=== PATIENT | female | born 1955 | race Caucasian/White ===

== ENCOUNTER 2023-12-03 12:58 | Outpatient (OUT) | payer MEDICARE, SELFPAY | END 2023-12-03 12:59 | disposition home or self-care (01) | LOC: PST 12:59 | PROVIDERS: Family Provider Family Medicine; Visit Provider Surgery | DX: Z01.818 Encounter for other preprocedural examination (principal); Z12.11 Encounter for screening for malignant neoplasm of colon ==

== ENCOUNTER 2023-12-11 07:11 | Day surgery (SDC) | payer MEDICARE, SELFPAY ==
--- OUTSIDE RECORDS SUMMARY | 2023-12-11 07:17 | XMS_ITS | CCD ---
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 Name Role Phone AZ HAYES Unavailable Unavailable NO FAMILY DOCTOR, NO FAMILY DOCTOR Unavailable Unavailable Rumrashida, Kathrine K Unavailable Unavailable Unavailable Unavailable Unavailable Zaina Leigh Unavailable Angela Aldrich Unavailable Unavailable Unavailable NON STAFF Primary Care Provider Unavailabl KWESI Guerra K Attending Provider [phone] Janay DO Kathrine Primary Care Provider MD Zaina Leigh Attending Provider [phone] MD Az Hayes Other Provider [phone] DO Josefa Cox Attending Provider RUMRASHIDA KATHRINE K Primary Care Physician Rumschlag, Kathrine Unavailable Dr. Az Hayes Referring Unavaila ble Freddy, Dr. Bernardo Attending Unavaila ble Dr. Az Hayes Referring Unavaila ble Freddy, Dr. Bernardo Attending Unavaila ble XOCHITLLEANDRA JETER Attending Unavailable RUMSCHLAG, KATHRINE Primary Care Unavailable RUMSCHLAG, KATHRINE Referring Unavailable XOCHITLLEANDRA JETER Attending Unavailable RUMSCHLAG, KATHRINE Primary Care Unavailable LEANDRA TO Attending Unavailable RUMSCHLAG, KATHRINE Primary Care Unavailable XOCHITL, LEANDRA E Attending Unavailable XOCHITL, LEANDRA E Admitting Unavailable RUMSCHLAG, KATHRINE Primary Care Unavailable XOCHITL, LEANDRA E Attending Unavailable XOCHITL, LEANDRA E Admitting Unavailable RUMSCHLAG, KATHRINE Primary Care Unavailable RUMSCHLAG, KATHRINE Primary Care Unavailable XOCHITL, LEANDRA E Attending Unavailable RUMSCHLAG, KATHRINE Primary Care Unavailable RUMSCHLAG, KATHRINE Primary Care Unavailable XOCHITL, LEANDRA E Attending Unavailable FREDDY, DR BERNARDO Attending Unavailab le TRABOULSSI, DR BERNARDO Consulting Unavailab le TRABOULSSI, DR BERNARDO Admitting Unavailab le MISC, DR CARRASQUILLO Primary Care Unavailable RUMSCHLAG, KATHRINE Consulting Unavailable NON STAFF Primary Care Provider Unavailabl e KWESI Diaz Attending Provider Rumschlag, DO Kathrine Primary Care Provider BONY Jiménez Attending Provider MD Zaina Leigh Other Provider MD Zaina Leigh Attending Provider NON STAFF Primary Care Provider UnavailKWESI Jaeger Attending Provider Rumschlag, DO Kathrine Primary Care Provider BONY Jiménez Attending Provider MD Zaina Leigh Other Provider MD Zaina Leigh Attending Provider [phone] [place], DO Nena Paz Attending Provider Rumschlag DO, Kathrine Jayna Primary Care Provider AZ HAYES Attending Unavailable RUMSCHLAG, KATHRINE JAYNA Primary Care Unavailabl e Rumschlag, DO Kathrine Attending Provider Rumschlag, Kathrine Primary Care Unavailable Zaina Leigh Referring Unavailable Nena Wick Admitting Unavailab le Nena Wick Attending Unavailab le Rumschlag, Kathrine Admitting Unavailable Rumschlag, Kathrine Primary Care Unavailable Rumschlag, Kathrine Attending Unavailable Zoila Jiménez S Admitting Unavailable Rumschlag, Kathrine Primary Care Unavailable Tino, Zoila S Attending Unavailable Tino, Zoila S Admitting Unavailable Tino, Zoila S Attending Unavailable Rumschlag, Kathrine Primary Care Unavailable Reese, Zaina Consulting Unavailable Reese, Zaina Referring Unavailable Mapus, Tondra K Admitting Unavailable Mapus, Tondra K Attending Unavailable NON STAFF Primary Care Unavailable Rumschlag, Kathrine Primary Care Unavailable Reese, Zaian Admitting Unavailable Reese, Zaina Attending Unavailable Allergies Allergy Classification Reported Allergen(s) Allergy Type Date of Onset Reaction(s) Facility (10 sources) Angiotensin Converting Enzyme (Mary) Inhibitors; Translations: [MARY Inhibitors] Allergy to drug (finding) 3 Hypotension [facility] 3 Repository (10 sources) Escitalopram; Translations: [Escitalopram Oxalate SOLN] [facility] [place] [address] [facility] Work Phone: (3 sources) venlafaxine; Translations: [venlafaxine] Drug Allergy Fatigue [facility] 250 DO Work Phone: (20 sources) Cephalexin; Translations: [Keflex] Drug Allergy 3 hives, Rash [facility] 250 DO Work Phone: (4 sources) Cephalexin; Translations: [CEPHALEXIN] Drug Allergy 3 [facility] (3 sources) Citalopram; Translations: [citalopram] Drug Allergy 3 [facility] (1 source) Angiotensin-conv erting enzyme inhibitor agent Drug Intolerance 3 Unknown [facility] (1 source) Escitalopram; Translations: [ESCITALOPRAM] Drug Allergy 3 [facility] 3 Repository Medications Current Medications Medication Drug Class(es) Dates Sig (Normalized) Sig (Original) acetaminophen 325 mg oral capsule (20 sources) Start: 08-23-2022 take 1 mg by mouth three times daily Tylenol 325 mg oral capsule mg cap(s), Oral, TID, Refills(s) 0 Start Date: 08/23/22 Status: Ordered take 2 capsules by m outh every twelve hours Acetaminophen 500 MG 2 capsule as needed Orally TWICE A DAY Active take 2 capsules by m outh twice daily as needed Acetaminophen 500 MG 2 capsule as needed Orally TWICE A DAY Active Aimovig (1 source) Aimovig Active Aimovig SureClick (2 sources) Start: 11-15-2022 Aimovig SureClick SubCutaneous, qMonth Start Date: 11/15/22 Status: Ordered Albuterol (20 sources) beta2-Adrenergic Agonist Start: 08-23-2022 albuterol Refills(s) 0 Start Date: 08/23/22 Status: Ordered Start: 06-27-2022 Albuterol Sulf ate HFA 108 (90 Base) MCG/ACT Inhalation Aerosol Solution as directed Quantity: 0 Refills: 0 Ordered: 27-Jun-2022 DO Start : 27-Jun-2022 Active Albuterol Sulfat e (2.5 MG/3ML) 0.083% 1 vial Inhalation 4 times a day as needed DX : J45.909 Active take 2 puff(s) by in halation every four hours as needed Ventolin HFA 108 (90 Base) MCG/ACT 2 puffs as needed Inhalation every 4 hrs Active take 2 puff(s) by in halation every four hours for wheezing albuterol 90 mcg/actuation inhaler Inhale 2 puffs every 4 hours if needed for wheezing. 0 Active Albuterol Sulfat e (2.5 MG/3ML) 0.083% 1 vial Inhalation 4 times a day as needed DX : J45.909 Active albuterol CFC free 90 mcg/inh inhalation aerosol (4 sources) Start: 08-23-2022 albuterol CFC free 90 mcg/inh inhalation aerosol Refills(s) 0 Start Date: 08/23/22 Status: Ordered aspirin 325 mg oral tablet (20 sources) Platelet Aggregation Inhibitor, Nonsteroidal Anti-inflammatory Drug take 1 tablet by mouth every twenty-four hours Aspirin 325 MG 1 tablet Orally Once a day Active take 1 tablet by edilma th every twenty-four hours Aspirin 325 MG 1 tablet Orally Once a day Active take 1 tablet by mouth once moustapha y Aspirin 81 MG Oral Tablet Delayed Release TAKE 1 TABLET DAILY. Quantity: 90 Refills: 3 Ordered: 19-Mar-2023 DO Active atorvastatin 80 mg oral tablet (20 sources) HMG-CoA Reductase Inhibitor Start: 08-23-2022 atorvastatin 80 mg Tab Refills(s) 0 Start Date: 08/23/22 Status: Ordered Breo Ellipta 200-25 MCG/INH (11 sources) Start: 06-24-2017 take 1 puff(s) by inhalation once daily Breo Ellipta 200-25 MCG/INH 1 puff Inhalation Once a day Jun, Active carvedilol 3.125 mg oral tablet (20 sources) alpha-Adrenergic Marilyn, beta-Adrenergic Marilyn Start: 08-23-2022 carvedilol 3.125 mg Tab Refills(s) 0 Start Date: 08/23/22 Status: Ordered take 1 tablet by mouth twice svetlana ly Carvedilol 3.125 MG 1 Tablet Orally twice daily Active take 1 tablet by mouth once moustapha y Carvedilol 3.125 MG Oral Tablet Take 1 tablet daily Quantity: 0 Refills: 0 Ordered: 17-Aug-2021 DO Active clopidogrel 75 mg oral tablet (20 sources) P2Y12 Platelet Inhibitor Start: 08-23-2022 clopidogrel 75 mg Tab Refills(s) 0 Start Date: 08/23/22 Status: Ordered diphenhydrAMINE hydrochloride 12.5 mg chewable tablet (4 sources) Histamine-1 Receptor Antagonist Start: 08-23-2022 take 1 mg by mouth every six hours diphenhydrAMINE 12.5 mg oral tablet, chewable mg tab(s), Chewed, q6hr, Refills(s) 0 Start Date: 08/23/22 Status: Ordered doxycycline hyclate 100 mg oral capsule (12 sources) Tetracycline-cla ss Drug Start: 09-10-2023 take 1 capsule by mouth every twelve hours Doxycycline Hyclate 100 MG 1 capsule Orally Twice a day for 5 days Sep, Active Start: 09-10-2023 take 1 tablet by edilma th every twelve hours Doxycycline Hyclate 100 MG 1 tablet Orally Twice a day for 5 days Sep, Active take 1 tablet by edilma th twice daily 1 hour(s) before breakfast Doxycycline Hyclate 100 MG 1 tablet 1 hour before breakfast and 1 hour before the evening meal Orally Twice a day for 5 days Active empagliflozin 10 mg oral tablet (20 sources) Sodium-Glucose Cotransporter 2 Inhibitor Start: 01-01-2023 take 1 tablet by mouth every twenty-four hours Jardiance 10 MG 1 tablet Orally Once a day for 90 days E11.29 28 Dec, 2022 Active Start: 09-18-2022 take 0.5 tablet by m outh once daily Jardiance 25 MG 1/2 tablet Orally Once a day for 30 day(s) PAP 15 Sep, 2022 Active Start: 08-23-2022 Jardiance 25 m g oral tablet Refills(s) 0 Start Date: 08/23/22 Status: Ordered 1 ml erenumab-aooe 140 mg/ml auto-injector (6 sources) inject 140 mg by subcutaneous injection every month Aimovig 140 MG/ML as directed Subcutaneous every month Active ERENUMAB-AOOE SUBQ (1 source) inject 140 mg by subcutaneous injection every 30 days ERENUMAB-AOOE SUBQ Inject 140 mg under the skin every 30 (thirty) days. 0 Active Ergocalciferol (20 sources) Provitamin D2 Compound take 1 capsule by mouth once daily Ergocalciferol 50 MCG (2000 UT) 1 capsule Orally Once a day for 56 days Active take 1 capsule by mouth every we ek Ergocalciferol 50 MCG (2000 UT) 1 capsule Orally 2x weekly Active take 1 capsule by mouth every we ek Ergocalciferol 50 MCG (2000 UT) 1 capsule Orally 2x weekly for 56 days Active Fish Oils (20 sources) Start: 08-23-2022 take 1 mg by mouth o nce daily EPA Fish Oil 1000 mg oral capsule mg cap(s), Oral, Daily, Refills(s) 0 Start Date: 08/23/22 Status: Ordered take 1 capsule by mouth once svetlana ly Fish Oil 1000 MG 1 capsule Orally Once a day Active take 2 capsules by mouth once da [place] Fish Oil 1000 MG 2 capsules Orally Once a day Active take 2 capsules by mouth twice d aily Fish Oil 1000 MG 2 capsules Orally Twice a day Active 30 actuat fluticasone furoate 0.1 mg/actuat / umeclidinium 0.0625 mg/actuat / vilanterol 0.025 mg/actuat dry powder inhaler (4 sources) Anticholinergic, Corticosteroid, beta2-Adrenergic Agonist take 1 puff(s) by inhalation once daily Trelegy Ellipta 100-62.5-25 MCG/ACT 1 puff Inhalation Once a day Active fluticasone / vilanterol (20 sources) Corticosteroid, beta2-Adrenergic Agonist Start: Breo Ellipta Inhalation, Daily, Refill(s) 0 Start Date: 08/23/22 Status: Ordered Start: 06-24-2017 take 1 puff(s) by in halation once daily Breo Ellipta 200-25 MCG/INH 1 puff Inhalation Once a day Jun, Active Freestyle Anali 14 day sensor (2 sources) Start: 11-18-2023 Freestyle Libr e 14 day sensor 1 sensor in vitro every 14 days for 84 days Nov, Active FreeStyle Anali 14 Day Sensor - (20 sources) Start: 04-29-2019 FreeStyle Libr e 14 Day Sensor - as directed SQ change every 14 days for 90 day(s) Apr, Active FreeStyle Anali Franklin (20 sources) Start: 03-05-2018 FreeStyle Libr e [place] 14 day reader Daily E11.59 March, Active 1.5 ml fremanezumab-vfrm 150 mg/ml prefilled syringe (4 sources) Ajovy 225 MG/1.5 ML 1.5 mL Subcutaneous Active furosemide 20 mg oral tablet (20 sources) Loop Diuretic Start: 08-23-2022 furosemide 20 mg Tab Refills(s) 0 Start Date: 08/23/22 Status: Ordered take 1 tablet by edilma th every twenty-four hours Lasix 40 MG 1 tablet Orally Once a day Not-Taking take 1 tablet by edilma th once daily as needed Furosemide 20 MG Oral Tablet Take one tablet daily. May take an extra tablet as needed for swelling Quantity: 0 Refills: 0 Ordered: 17-Aug-2021 DO Active 1 ml galcanezumab-gnlm 120 mg/ml prefilled syringe (8 sources) inject 1 mL by subcutaneous injection every month Emgality 120 MG/ML 1 mL Subcutaneous ONCE A MONTH Active Mucinex (20 sources) Start: 08-23-2022 take 1 mg by mouth every twelve hours Mucinex mg, Oral, q12hr, Refills(s) 0 Start Date: 08/23/22 Status: Ordered take 1 tablet by edilma th every twelve hours Mucinex 600 MG 1 tablet as needed Orally every 12 hrs Active take 1 tablet by mouth every fou r hours guaiFENesin (Mucus Relief) 400 mg tablet Take 1 tablet (400 mg) by mouth every 4 hours. 0 Active Lantus (20 sources) Insulin Analog Start: 08-23-2022 Lantus SubCuta neous, Daily, Refills(s) 0 Start Date: 08/23/22 Status: Ordered inject 24 [IU] by dennis bcutaneous injection once at breakfast, then inject 20 [IU] by subcutaneous injection at bedtime Lantus SoloStar 100 UNIT/ML 24 units at breakfast and 20 units at bedtime SQ as directed for 90 days PAP Expect up to 60u/ day Active inject 1 [IU] by sub cutaneous injection once daily in the morning insulin glargine (Lantus U-100 Insulin) 100 unit/mL injection Inject 1 Units under the skin once daily in the morning. 0 Active inject 28 [IU] by dennis bcutaneous injection once at breakfast, then inject 18 [IU] by subcutaneous injection at bedtime Lantus SoloStar 100 UNIT/ML 28 units at breakfast and 18 units at bedtime SQ as directed for 90 days Expect up to 60u/ day Active inject 30 [IU] by dennis bcutaneous injection once at breakfast, then inject 20 [IU] by subcutaneous injection at bedtime Lantus SoloStar 100 UNIT/ML 30 units at breakfast and 20 units at bedtime SQ as directed for 90 days Expect up to 60u/ day Active Apidra (20 sources) Insulin Analog Start: 08-23-2022 Apidra SubCuta neous, 0 Start Date: 08/23/22 Status: Ordered Apidra SoloStar 100 UNIT/ML as directed SQ as directed ISS 1-30, ICR 1-5 Active inject 1 [IU] by sub cutaneous injection three times daily at mealtime insulin glulisine (Apidra U-100 Insulin) 100 unit/mL injection Inject 1 Units under the skin 3 times a day with meals. 0 Active Apidra 100 UNIT/ ML Injection Solution INJECT SUBCUTANEOUSLY DIRECTED. Quantity: 0 Refills: 0 Ordered: 14-Feb-2022 DO Active Apidra SoloStar 100 UNIT/ML 08-18- ac according to meals size tid plus ISS 1:20 ac, hs (expect up to 80/day) SQ as directed Active Insulin Syringe 1/3mL 30 units BD Micro-Fine insulin syringes (20 sources) Start: 03-20-2017 inject 1 dose by subcutaneous injection three times daily Insulin Syringe 1/3mL 30 units BD Micro-Fine insulin syringes USE WITH VIAL INSULIN SQ TID March, Active linagliptin 5 mg oral tablet (20 sources) Dipeptidyl Peptidase 4 Inhibitor take 1 tablet by mouth every twenty-four hours Tradjenta 5 mg 1 tablet Orally Once a day for 90 days PAP Active Midodrine (20 sources) alpha-Adrenergic Agonist Start: 08-23-2022 midodrine Oral, TID, Refills(s) 0 Start Date: 08/23/22 Status: Ordered Start: 02-14-2022 take 1 tablet by edilma th three times daily midodrine (Proamatine) 5 mg tablet Take 1 tablet (5 mg) by mouth 3 times a day. 0 02/14/2022 Active Midodrine HCl 2. 5 MG Oral As Directed Active Nitro 0.4 mg Tab (2 sources) Start: 08-23-2022 Nitro 0.4 mg T ab = 1 tab(s), SubLingual, q5min, PRN Chest pain, # 25 tab(s), Refills(s) 3 Start Date: 08/23/22 Status: Ordered nitroglycerin 0.4 mg/actuat mucosal spray (20 sources) Nitrate Vasodilator Start: 08-23-2022 Nitro 0.4 mg Tab = 1 tab(s), SubLingual, q5min, PRN Chest pain, # 25 tab(s), Refills(s) 3 Start Date: 08/23/22 Status: Ordered Nitroglycerin 0. 4 MG as directed Sublingual Active nitroglycerin (N itrostat) 0.[address] 1 tablet (0.4 mg) under the tongue every 5 minutes if needed for chest pain. 0 Active omeprazole 20 mg delayed release oral capsule (20 sources) Proton Pump Inhibitor Start: 03-20-2022 take 1 capsule by mouth once daily omeprazole (PriLOSEC) [address] capsule Take 1 capsule (20 mg) by mouth once daily. 0 03/20/2022 Active Start: 03-20-2022 Omeprazole 20 MG Oral Capsule Delayed Release Quantity: 30 Refills: 0 Ordered: 20-Mar-2022 DO Start : 20-Mar-2022 Complete take 2 capsules by sandeep church once daily Omeprazole 20 MG 2 capsule 30 minutes before morning meal Orally Once a day Active oxygen (O2) gas therapy (1 source) oxygen (O2) gas therapy Inhale 1 each continuously. 0 Active Oxygen 2 liters (20 sources) Oxygen 2 liters continuous as directed Active POT CHLORIDE 10MEQ ER TAB (4 sources) Start: 08-23-2022 POT CHLORIDE 10MEQ ER TAB POT CHLORIDE 10MEQ ER TAB Start Date: 08/23/22 Status: Ordered rimegepant 75 mg disintegrating oral tablet (10 sources) Nurtec 75 MG 1 t ablet on the tongue and allow to dissolve Orally Active 60 actuat tiotropium 0.97293 mg/actuat inhalation spray (20 sources) Anticholinergic Start: 08-23-2022 Spiriva Respimat 1.25 mcg/inh inhalation aerosol puff(s), Inhalation, Daily, Refill(s) 0 Start Date: 08/23/22 Status: Ordered Start: 09-28-2019 take 1.25 ug by inha lation once daily Spiriva Respimat 1.25 MCG/ACT 2 puffs Inhalation Once a day Sep, Active topiramate 100 mg oral table t (20 sources) Start: 08-23-2022 topiramate 100 mg Tab Refills(s) 0 Start Date: 08/23/22 Status: Ordered take 1 tablet by edilma th every twenty-four hours Topamax 25 MG 1 tablet Orally Once a day Not-Taking/PRN take 1 tablet by mouth three lamar es daily Topiramate 50 MG Oral Tablet TAKE 1 TABLET 3 times daily Quantity: 0 Refills: 0 Ordered: 17-Aug-2021 DO Active Vitamin B 12 500 MCG (6 sources) take 1 tablet by edilma th once daily Vitamin B 12 500 MCG 1 tablet Orally Once a day Active vitamin b12 0.5 mg oral tablet (19 sources) Vitamin B12 take 1 tablet by edilma th every twenty-four hours Vitamin B 12 500 MCG 1 tablet Orally Once a day Active take 1 tablet by edilma th every twenty-four hours Vitamin B-12 50 MCG 1 tablet Orally Once a day Active Vitamin D (4 sources) Start: 08-23-2022 Vitamin D Inte rnational_Unit, Oral, qWeek, Refills(s) 0 Start Date: 08/23/22 Status: Ordered Completed/Discontinued Medications Medication Drug Class(es) Dates Sig (Normalized) Sig (Original) Aimovig SOAJ (2 sources) Aimovig SOAJ as directed Quantity: 0 Refills: 0 Ordered: 24-Sep-2022 DO Active cephalexin 500 mg oral capsule (11 sources) Cephalosporin Antibacterial Start: 08-23-2022 Cephalexin 500 MG Oral Capsule Quantity: 14 Refills: 0 Ordered: 23-Aug-2022 DO Start : 23-Aug-2022 Complete Start: 08-23-2022 End: 08-30-2022 take 1 capsule by mouth twice daily Keflex 500 mg Cap 500 mg = 1 cap(s), Oral, BID, X 7 day(s), # 14 cap(s), Refills(s) 0, Pharmacy: [facility] [id number], 160, cm, 08/23/22 10:01:00 EDT, Height/Length Dosing, 80, kg, 08/23/22 10:01:00 EDT, Weight Dosing Start Date: 08/23/22 Stop Date: 08/30/22 Status: Ordered Cyanocobalamin 100 MCG/ML SOLN (2 sources) Cyanocobalamin 1 00 MCG/ML SOLN ONE INJECTION EVERY WEEK FOR 4 WEEKS THEN 4 MONTHS FOR NEXT INJECTION. Quantity: 0 Refills: 0 Ordered: 19-Mar-2023 DO Active digoxin 0.125 mg oral tablet (20 sources) Cardiac Glycoside Start: 04-30-20 23 take 1 tablet by mouth once daily Digoxin 125 MCG Oral Tablet TAKE ONE TABLET BY MOUTH DAILY Quantity: 90 Refills: 3 Ordered: 01-May-2023 Lois Vilchis Start : 30-Apr-2023 Active Start: 08-23-2022 take 1 tablet by edilma th once daily digoxin 125 mcg (0.125 mg) Tab mcg tab(s), Oral, Daily, Refills(s) 0 Start Date: 08/23/22 Status: Ordered Disability Placard (4 sources) Start: 09-24-2022 Disability [place] card Handicap Placard renewal for next 5 years to on 10/03/2027 Quantity: 1 Refills: 0 Ordered: 24-Sep-2022 Az Hayes MD Start : 24-Sep-2022 Active famotidine 40 mg oral tablet (20 sources) Histamine-2 Receptor Antagonist End: 10-07-2023 take 1 tablet by mouth twice daily famotidine (Pepcid) 40 mg tablet Take 1 tablet (40 mg) by mouth twice a day. 0 10/07/2023 Discontinued (Therapy completed) take 0.5 tablet by mouth twice d aily Famotidine 40 MG Oral Tablet TAKE 0.5 TABLET Twice daily Quantity: 0 Refills: 0 Ordered: 17-Aug-2021 DO Active take 1 tablet by mouth twice svetlana ly Famotidine 20 mg 1 TABLET Orally twice daily Not-Taking hydrOXYzine pamoate 50 mg oral capsule (5 sources) Antihistamine Start: 08-11-2021 take 1 capsule by mouth three times daily as needed hydrOXYzine Pamoate 50 MG Oral Capsule TAKE 1 CAPSULE 3 TIMES DAILY NEEDED. Quantity: 0 Refills: 0 Ordered: 11-Aug-2021 DO Start : 11-Aug-2021 Active meclizine hydrochloride 25 mg oral tablet (20 sources) Antiemetic Meclizine HCl 25 mg 1 tablet as needed Oral As Directed Not-Taking/PRN Mucus Relief 400 MG Oral Tablet (9 sources) take 1 tablet by mouth every four hours as needed Mucus Relief 400 MG Oral Tablet TAKE 1 TABLET EVERY 4 HOURS NEEDED. Quantity: 0 Refills: 0 Ordered: 17-Aug-2021 DO Active Oxygen (4 sources) Oxygen Quantity: 0 Refills: 0 Ordered: 24-Sep-2022 DO Active potassium chloride 10 meq extended release oral tablet (20 sources) take 1 tablet by mouth every twenty-four hours Potassium Chloride ER 10 MEQ 1 tablet with food Orally Once a day Not-Taking 12 hr ranolazine 500 mg extended release oral tablet (20 sources) Anti-anginal Start: 10-10-2021 End: 10-07-2023 take 1 tablet by mouth twice daily ranolazine (Ranexa) 500 mg 12 hr tablet Indications: Chest pain, unspecified type TAKE ONE TABLET BY MOUTH TWICE A DAY 180 tablet 3 10/02/2023 10/07/2023 Discontinued (Cost of medication) take 1 tablet by edilma th every twelve hours Ranolazine ER 500 MG Oral Tablet Extende d Release 12 Hour TAKE 1 TABLET EVERY 12 HOURS. Quantity: 0 Refills: 0 Ordered: 17-Aug-2021 DO Active 24 hr venlafaxine 75 mg extended release oral capsule (2 sources) Serotonin and Norepinephrine Reuptake Inhibitor take 1 capsule by mouth once daily at mealtime Venlafaxine HCl ER 75 MG Oral Capsule Extended Release 24 Hour TAKE 1 CAPSULE ONCE DAILY WITH FOOD. Quantity: 0 Refills: 0 Ordered: 14-Feb-2022 DO Active Problems Active Problems Problem Classification Problem Date Documented Date Episodic/Chronic Abdominal pain (6 sources) Abdominal pain; Translations: [Unspecified abdominal pain] Onset: 2 Episodic Administrative/socia l admission (20 sources) Patient encounter status; Translations: [Dietary counseling and surveillance] Onset: 2 Resolved: 2 Episodic Anxiety disorders (4 sources) Mixed anxiety and depressive disorder 08-16-2022 Chronic Asthma (20 sources) Mild intermittent asthma; Translations: [Mild intermittent asthma, uncomplicated] Chronic Cardiac dysrhythmias (2 sources) Unspecified atrial fibrillation; Translations: [Unspecified atrial fibrillation] Onset: 3 Chronic Chronic kidney disease (20 sources) Chronic kidney disease stage 3; Translations: [Chronic kidney disease, stage 3 (moderate)] Chronic Chronic kidney disease (14 sources) Chronic kidney disease; Translations: [Chronic kidney disease, stage III (moderate) N18.30] Onset: 1 Resolved: 1 Complications of surgical procedures or medical care (10 sources) Atrial fibrillation; Translations: [Cardiac complications, not elsewhere classified] Onset: 3 10-07-2023 Episodic Conditions associated with dizziness or vertigo (4 sources) Meniere's disease 08-16-2022 Chronic Conditions associated with dizziness or vertigo (1 source) Dizziness and giddiness; Translations: [Dizziness and giddiness] Onset: 3 Episodic Congestive heart failure; nonhypertensive (4 sources) Congestive heart failure 08-16-2022 Chronic Coronary atherosclerosis and other heart disease (20 sources) Atherosclerotic heart disease of [place] coronary artery without angina pectoris; Translations: [Multi vessel coronary artery disease] Onset: 7 08-16-2022 Chronic Diabetes mellitus with complications (20 sources) Diabetes mellitus; Translations: [Diabetes mellitus without mention of complication, type II or unspecified type, not stated as uncontrolled] Onset: 3 08-16-2022 Chronic Diabetes mellitus with complications (20 sources) Disorder of kidney due to diabetes mellitus; Translations: [Type 2 diabetes mellitus with diabetic chronic kidney disease] Onset: 1 Resolved: 2 Chronic Diabetes mellitus without complication (1 source) Diabetes mellitus without complication; Translations: [Type 2 diabetes mellitus with diabetic chronic kidney disease] Onset: 3 Disorders of lipid metabolism (20 sources) Hyperlipidemia; Translations: [Other and unspecified hyperlipidemia] Onset: 2 Resolved: 2 Chronic Esophageal disorders (20 sources) Gastroesophageal reflux disease; Translations: [Gastro-esophageal reflux disease without esophagitis] Chronic Essential hypertension (20 sources) Benign essential hypertension; Translations: [Benign essential hypertension] Onset: 2 Resolved: 2 Chronic Genitourinary symptoms and ill-defined conditions (18 sources) Microscopic hematuria; Translations: [Other microscopic hematuria] Onset: 2 Episodic Headache; including migraine (5 sources) Migraine; Translations: [Migraine, unspecified, not intractable, without status migrainosus] Onset: 3 08-16-2022 Chronic Hypertension with complications and secondary hypertension (20 sources) Chronic kidney disease due to hypertension; Translations: [Hypertensive chronic kidney disease with stage 1 through stage 4 chronic kidney disease, or unspecified chronic kidney disease] Onset: 1 Resolved: 1 Chronic Mood disorders (20 sources) Depressive disorder; Translations: [Major depressive disorder, single episode, unspecified] Onset: 2 Resolved: 2 Chronic Nonspecific chest pain (11 sources) Chest pain; Translations: [Chest pain, unspecified] Onset: 3 10-07-2023 Episodic Nutritional deficiencies (20 sources) Vitamin D deficiency; Translations: [Vitamin D deficiency, unspecified] Onset: 1 Resolved: 2 Chronic Other aftercare (20 sources) Long-term current use of insulin; 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] Episodic Other aftercare (9 sources) [facility] (current) use of insulin Onset: 2 Resolved: 2 Episodic Other and unspecified benign neoplasm (2 sources) Neoplasm of meninges; 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] Chronic Other circulatory disease (12 sources) Orthostatic hypotension; Translations: [Orthostatic hypotension] Onset: 3 10-07-2023 Episodic Other circulatory disease (2 sources) Other hypotension; Translations: [Other hypotension] Onset: 3 Episodic Other circulatory disease (1 source) Orthostatic hypotension; Translations: [Orthostatic hypotension] Onset: 3 Episodic Other connective tissue disease (4 sources) Fibromyalgia 08-16-2022 Episodic Other diseases of kidney and ureters (20 sources) Secondary hyperparathyroidism; Translations: [Secondary hyperparathyroidism of renal origin] Chronic Other diseases of kidney and ureters (1 source) Secondary hyperparathyroidism of renal origin; Translations: [Secondary hyperparathyroidism N25.81] Onset: 1 Resolved: 1 Chronic Other ear and sense organ disorders (20 sources) Tinnitus; Translations: [Tinnitus, right ear] Episodic Other lower respiratory disease (11 sources) Dyspnea on exertion; Translations: [Shortness of breath] Onset: 3 10-07-2023 Episodic Other lower respiratory disease (2 sources) Shortness of breath; Translations: [Shortness of breath] Onset: 3 Episodic Other nervous system disorders (20 sources) Chronic pain syndrome; Translations: [Chronic pain syndrome] Chronic Other nutritional; endocrine; and metabolic disorders (20 sources) Body mass index 30+ - obesity; Translations: [Obesity, unspecified] Chronic Other nutritional; endocrine; and metabolic disorders (6 sources) Obesity; Translations: [Obesity, unspecified] Chronic Other nutritional; endocrine; and metabolic disorders (20 sources) Obese class I; Translations: [Body mass index (BMI) 33.0-33.9, adult] Chronic Other nutritional; endocrine; and metabolic disorders (2 sources) Body mass index (BMI) 33.0-33.9, adult; Translations: [BMI 33.0-33.9,adult] Onset: 2 Resolved: 2 Chronic Other nutritional; endocrine; and metabolic disorders (2 sources) Body mass index (BMI) 32.0-32.9, adult; Translations: [BMI 32.0-32.9,adult] Onset: 2 Resolved: 2 Chronic Other nutritional; endocrine; and metabolic disorders (3 sources) Body mass index (BMI) 31.0-31.9, adult Onset: 2 Resolved: 2 Chronic Other nutritional; endocrine; and metabolic disorders (4 sources) Body mass index (BMI) 30.0-30.9, adult Chronic Other upper respiratory disease (20 sources) Allergic rhinitis; Translations: [Allergic rhinitis, unspecified] Chronic Residual codes; unclassified (9 sources) Other specified health status; Translations: [MARY inhibitor intolerance] Episodic Unclassified (2 sources) 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) Onset: 7 Unclassified (1 source) Ischemic cardiomyopathy / I25.5(ICD-9) Onset: 7 Unclassified (1 source) Encounter for screening mammogram for malignant neoplasm of breast; Translations: [Encounter for screening mammogram for malignant neoplasm of breast] Onset: 3 Urinary tract infections (8 sources) Recurrent urinary tract infection; Translations: [Urinary tract infectious disease] Onset: 3 08-23-2022 Episodic Past or Other Problems Problem Classification Problem Date Documented Da te Episodic/Chronic Mood disorders (1 source) Mood disorders Onset: 03-19-2023 04-29-2023 Other nervous system disorders (2 sources) Other symptoms and signs involving cognitive functions and awareness Onset: 11-08-2021 Resolved: 02-21-2022 Episodic Unclassified (9 sources) Never smoked tobacco; Translations: [Never a smoker] Unclassified (1 source) Onset: 10-07-2023 10-07-2023 Results Test Name Value Interpretation Reference Range Facility A1C HEMOGLOBINon 11-13-2023 HbA1c (Bld) [Mass fraction] 8.4 % 79 Group Other Glucose - FINGER STICKon Glucose [Mass/Vol] 254 mg/dL 79 Group Other HbA1c (Bld) [Mass fraction]o n 11-13-2023 A1C HEMOGLOBIN SERPs Other MM screening mammo BI w/CADo n 10-22-2023 MM screening mammo BI w/CAD [facility] Main [place] [address] [place] [address] Mammography Report Signed Patient: Elizabeth Manrique MR#: [id number] 38 : 1955 Acct:[id number] Age/Sex: 68 / F ADM Date: 10/21/23 Loc: [place] Room: Type: [facility] Attending Dr: Kathrine Gustafson DO Copies to: Kathrine Gustafson DO Ordering Provider: Kathrine Gustafson DO Date of Service: 10/21/23 MM/MM screening mammo BI w/CAD: SCREENING CLINICAL DATA: Screening for malignancy. BILATERAL SCREENING MAMMOGRAMS - FULL FIELD DIGITAL WITH TOMOSYNTHESIS AND CAD Tomosynthesis craniocaudal and mediolateral oblique views of both breasts were obtained using low- dose digital technique. Comparison is made to prior studies from 09/12/2020. This examination was reviewed with the aid of CAD. There are scattered fibroglandular densities. Benign-appearing calcifications are present bilaterally. A biopsy clip is present on the left similar to the prior exam. Benign-appearing lymph nodes are noted along the chest wall. There are no dominant masses, typically malignant calcifications or architectural distortion. There has been no significant interval change. MM/MM screening mammo BI w/CAD IMPRESSION: NO MAMMOGRAPHIC EVIDENCE OF MALIGNANCY. ROUTINE FOLLOW-UP IS RECOMMENDED IN ONE YEAR. RESULT CODE: 2 Benign Findings(s) DENSITY CODE: 2 (approximately 25-50% glandular) FOLLOW UP: 1YR The false-negative rate of mammography is approximately 10-percent. Management of a palpable abnormality must be based on clinical grounds. Patient was entered into a reminder system with a target due date for the next mammogram. Impression dictated by: Orlando Melton M.D.10/22/2023 7:50 AM Dictation Location: [facility] Transcribed By: [facility] 10/22/23 0750 Dictated By: Orlando Melton II, MD 10/22/23 0749 Signed By: 10/22/23 0750 Normal [facility] CT angio neckon 09-17-2023 CT angio neck [facility] [place] [address] CT Scan Report Signed with Addenda Patient: Elizabeth Manrique MR#: [id number] 38 : 1955 Acct:[id number] Age/Sex: 68 / F ADM Date: 09/16/23 Loc: CT Room: Type: [facility] Attending Dr: Nena Wick DO Copies to: Nena Wick DO Ordering Provider: Nena Wick DO Date of Service: 09/16/23 CT/CT angio neck: R42, R93.89 ([id number]) CT/CT angio head: R42 M93.89 ADDENDUM 1 The previously described 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 Impression dictated by: Vicenta Reyna Jr.ORayshawn09/19/2023 1:31 PM Dictation Location: [place] [address] Addendum Dictated By: Cliff Mercedes Jr, DO Addendum Signed By: 09/19/231330 Addendum Cosigned By: DD/ TD/TT: 09/19/23 CT angio head, CT angio neck 09/16/2023 2:30 PM SIGNS AND SYMPTOMS: Migraines with dizziness. TECHNIQUE: Multi-detector CT angiography axial slices of the head and neck were obtained before and during intravenous administration of IV contrast material. Sagittal, coronal, and 3-D recon structions were performed and viewed on a separate workstation. CT was performed with one or more of the following dose reduction techniques: Automated exposure control, adjustment of the mA and/or kV according to patient size, or use of iterative reconstruction technique. Stenoses were measured using the NASCET criteria. COMPARISON: CT brain 02/11/2017 FINDINGS: Noncontrast head CT: There is no shift of the midline structures, acute intracranial bleeding, mass effects, or evidence of acute ischemia. Chronic microvascular ischemic changes are noted.The brainstem and the cerebellum are unremarkable. The visualized intraorbital contents and visualized paranasal sinuses demonstrate no acute findings. The osseous structures in the skull base and the calvarium show no acute abnormality. 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 origin left posterior cerebral artery. Intracranial segments of the internal carotid arteries: Minimal calcification without critical stenosis or occlusion. MCA: patent OBDULIA: patent Anterior Communicating artery: patent Posterior Communicating arteries: Right posterior communicating artery is patent. CTA NECK: Vertebral arteries : Patent. Normal origins. Common Carotid arteries: Normal. Internal Carotid arteries: Normal. No gross central airway mass. Right sphenoid sinus disease. No soft tissue swelling. No lymphadenopathy. Thyroid nodules, largest measuring 8 mm involving the right lobe. Visualized lung apices demonstrate no acute findings. Osseous structures demonstrate cervical spondylosis. CT/CT angio head IMPRESSION: No acute intracranial pathology. 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 Impression dictated by: Cliff Mercedes Jr., DRayshawnORayshawn09/17/2023 10:37 AM Dictation Location: [place] [address] Transcribed By: [facility] 09/17/23 1037 Dictated By: Cliff Mercedes Jr DO 09/17/23 1027 Signed By: 09/17/23 1037 [facility] CT CHEST W IV CONTRASTon CT CHEST W IV CONTRAST EXAM: CT CHEST W IV CONTRAST History: swelling Technique: Multiple contiguous axial images were obtained of the thorax from the thoracic inlet through the upper abdomen with IV contrast. Multiplanar reformats were obtained. All CT scans at this facility use dose modulation, iterative reconstruction, and/or weight based dosing when appropriate to reduce radiation dose to as low as reasonably achievable. Comparison: Chest radiographs June 06, 2023 Findings: Visualized portion of the thyroid gland is within normal limits. No axillary, mediastinal, or hilar lymphadenopathy. No thoracic aortic aneurysm. Postsurgical changes of CABG. Coronary artery calcifications are identified. Heart size is mildly enlarged. No significant pericardial effusion. Esophagus is within normal limits. 4 mm spiculated nodule versus motion artifact as seen on axial series 2 image 14. No consolidation, pleural effusion, or pneumothorax. No acute osseous abnormality. 1 cm sclerotic focus within lateral left rib 7 is nonspecific. Mild degenerative changes of the spine. No soft tissue mass. Visualized upper abdomen demonstrates no acute abnormality. IMPRESSION: No acute intrathoracic process. Possible 4 mm spiculated nodule of the right upper lobe. Follow-up recommended per Fleischner criteria. Cardiomegaly. Solitary 1 cm sclerotic focus within lateral left rib 7 is nonspecific and likely a bone island unless the patient has a history of malignancy. ELECTRONICALLY SIGNED BY: Donavan Hastings DO Normal Not Available CT UPPER EXTREMITY LEFT W IV CONTRASTon 09-04-2023 CT UPPER EXTREMITY LEFT W IV CONTRAST EXAMINATION: CT UPPER EXTREMITY LEFT W IV CONTRAST HISTORY: palpable mass TECHNIQUE: Multiple axial images were obtained of the left upper extremity with contrast. Multiplanar reformats were obtained. All CT scans at this facility use dose modulation, iterative reconstruction, and/or weight based dosing when appropriate to reduce radiation dose to as low as reasonably achievable. COMPARISON: Ultrasound June 06, 2023 FINDINGS: No soft tissue mass or fluid collection. Humerus is within normal limits. A sclerotic focus within a lateral left rib measures approximately 10 mm and is most likely a bone island unless the patient has a history of malignancy. The visualized left lung demonstrates no overt abnormality. IMPRESSION: No soft tissue mass or fluid collection. A sclerotic focus within a lateral left rib measures approximately 10 mm and is most likely a bone island unless the patient has a history of malignancy. ELECTRONICALLY SIGNED BY: Donavan Hastings DO Normal Not Available Magnesiumon 09-03-2023 Magnesium [Mass/Vol] 1.8 mg/dL Low 1.9-2.7 [facility] Comment on above: Performed By: #### R ENAL, URIC, MG, [id number] #### [facility] [address] No Panel InformationOrdered By: Zaina Leigh on 09-03-2023 Pharmacy Creatinine Clearance (Chem N/A [facility] Renal Function Panelon 09-03 Albumin [Mass/Vol] 3.8 g/dL Normal 3.5-5.7 [facility] Comment on above: Performed By: #### R ENAL, URIC, MG, [id number] #### [facility] [address] Anion gap [Moles/Vol] 15.9 mmol/L High 6.0-15.0 [facility] Comment on above: Performed By: #### R ENAL, URIC, MG, [id number] #### [address] Calcium [Mass/Vol] 9.0 mg/dL Normal 8.6-10.3 [facility] Comment on above: Performed By: #### R ENAL, URIC, MG, [id number] #### [address] Chloride [Moles/Vol] 107 mmol/L Normal 98-107 [facility] Comment on above: Performed By: #### R ENAL, URIC, MG, [id number] #### [address] CO2 [Moles/Vol] 26.0 mmol/L Normal 21.0-31.0 [facility] Comment on above: Performed By: #### R ENAL, URIC, MG, [id number] #### [address] Creatinine [Mass/Vol] 1.12 mg/dL Normal 0.60-1.20 [facility] Comment on above: Performed By: #### R ENAL, URIC, MG, [id number] #### [address] GFR/1.73 sq M.predicted MDRD (S/P/Bld) [Vol rate/Area] 54.233 mL/min/{1.73_m2} Normal [facility] Comment on above: Performed By: #### R ENAL, URIC, MG, [id number] #### [address] Glucose [Mass/Vol] 229 mg/dL High 70-100 [facility] Comment on above: Result Comment: [place] Glucose Reference Range is dependent on time and content of last meal. Glucose of more than 200 mg/dL in a nonstressed, ambulatory subject supports the diagnosis of Diabetes Mellitus. ADA recommended reference range Performed By: #### R ENAL, URIC, MG, [id number] #### [facility] [address] Phosphate [Mass/Vol] 3.6 mg/dL Low 3.7-7.2 [facility] Comment on above: Performed By: #### R ENAL, URIC, MG, [id number] #### [facility] [address] Potassium [Moles/Vol] 3.9 mmol/L Normal 3.5-5.1 [facility] Comment on above: Performed By: #### R ENAL, URIC, MG, [id number] #### [facility] [address] [place] [address] Sodium [Moles/Vol] 145 mmol/L Normal 136-145 [facility] Comment on above: Performed By: #### R ENAL, URIC, MG, [id number] #### [facility] [address] [place] [address] Urea nitrogen [Mass/Vol] 13 mg/dL Normal 7-25 [facility] Comment on above: Performed By: #### R ENAL, URIC, MG, [id number] #### [address] Uric Acidon 09-03-2023 Urate [Mass/Vol] 4.1 mg/dL Normal 2.3-6.6 [facility] Comment on above: Performed By: #### R ENAL, URIC, MG, [id number] #### [address] Vitamin D 25 Hydroxy Totalon 09-03-2023 Vitamin D 25 Hydroxy Total 17.4 ng/mL Low 30-100 [facility] Comment on above: Result Comment: ALBIN MIN D STATUS 25(OH)VITAMIN D RANGE (ng/mL) Deficient <20 Insufficient 20 to <30 Sufficient 30 to 100 Reference: David CHEW,Nubia HERNANDES, Thom MARTINEZ, et al. Evaluation,treatment, and prevention of vitamin D deficiency; an Endocrine Society clinical practice guideline. JCEM. 2010; 96(7):1911-30. PERFORMED BY: [facility] [address] [place] [address] PATHOLOGIST DRYWALL TAPER HELPER ALEXA BETANCOURT M.D. Performed By: #### R ENAL, URIC, MG, [id number] #### [facility] [address] Albumin [Mass/volume] in Ser um or PlasmaOrdered By: Zaina Finer on 09-02-2023 Albumin [Mass/Vol] 3.3 g/dL 2.9-4.4 [facility] Albumin [Mass/volume] in Ser um or Plasma by Bromocresol green (BCG) dye binding methoOrdered By: Zaina Reese on 09-02-2023 Albumin BCG dye [Mass/Vol] 3.8 g/dL 3.5-5.7 [facility] Albumin/Protein.total in 24 hour Urine by ElectrophoresisOrdered By: Zaina Leigh on 09-02-2023 Albumin Elph (24H U) [Mass fraction] 66.8 % . [facility] Automated erythrocytes count in urine sediment (number/area)Ordered By: Zaina Reese on 09-02-2023 RBC Auto (Urine sed) [#/Area] 1-2 [HPF] 0-4 [facility] Automated leukocytes count i n urine sediment (number/area)Ordered By: Zaina Reese on 09-02-2023 WBC Auto (Urine sed) [#/Area] Innumerable [HPF] 0-4 [facility] Bilirubin Test strip Ql (U)O rdered By: Zaina Reese on 09-02-2023 Bilirubin Ql (U) Negative Negative [facility] Calcium [Mass/volume] in Ser um or PlasmaOrdered By: Zaina Reese on 09-02-2023 Calcium [Mass/Vol] 9.0 mg/dL 8.6-10.3 [facility] Carbon dioxide, total [Moles /volume] in Serum or PlasmaOrdered By: Zaina Reese on 09-02-2023 CO2 [Moles/Vol] 26.0 mmol/L 21.0-31.0 [facility] Chloride [Moles/volume] in S jazzy or PlasmaOrdered By: Zaina Reese on 09-02-2023 Chloride [Moles/Vol] 107 mmol/L 98-107 [facility] Color Auto (U)Ordered By: Ab desai Reese on 09-02-2023 Color (U) Yellow Yellow [facility] Creatinine [Mass/volume] in Serum or PlasmaOrdered By: Zaina Reese on 09-02-2023 Creatinine [Mass/Vol] 1.12 mg/dL 0.60-1.20 [facility] Creatinine [Mass/volume] in UrineOrdered By: Zaina Reese on 09-02-2023 Creatinine (U) [Mass/Vol] 40.0 mg/dL 11.0-20.0 [facility] Dipstick and Microscopicon 1 Appearance (U) Cloudy Critically abnormal Clear [facility] Comment on above: Order Comment: Reaso n for Exam Chronic kidney disease, stage III (moderate);Quinn hy kid w cr Performed By: #### R ENAL, URIC, MG, [id number] #### [facility] [address] [place] [address] Bacteria,Urine 4+ High None Seen [facility] Comment on above: Order Comment: Reaso n for Exam Chronic kidney disease, stage III (moderate);Quinn hy kid w cr Performed By: #### R ENAL, URIC, MG, [id number] #### [facility] [address] [place] [address] [place] Bilirubin,Urine Negative Normal Negative [facility] Comment on above: Order Comment: Reaso n for Exam Chronic kidney disease, stage III (moderate);Quinn hy kid w cr Performed By: #### R ENAL, URIC, MG, [id number] #### [facility] [address] [place] [address] [place] Color (U) Yellow Normal Yellow [facility] Comment on above: Order Comment: Reaso n for Exam Chronic kidney disease, stage III (moderate);Quinn hy kid w cr Performed By: #### R ENAL, URIC, MG, [id number] #### [facility] [address] Glucose Ql (U) >=1000 High Normal [facility] Comment on above: Order Comment: Reaso n for Exam Chronic kidney disease, stage III (moderate);Quinn hy kid w cr Performed By: #### R ENAL, URIC, MG, [id number] #### [facility] [address] Hyaline Casts,Urine None Seen Normal 0-8 [facility] Comment on above: Order Comment: Reaso n for Exam Chronic kidney disease, stage III (moderate);Quinn hy kid w cr Result Comment: PERF ORMED BY: [place] [address] PATHOLOGIST DRYWALL TAPER HELPER ALEXA BETANCOURT M.D. Performed By: #### R ENAL, URIC, MG, [id number] #### [facility] [address] [place] [address] Ketones Ql (U) Negative Normal Negative [facility] Comment on above: Order Comment: Reaso n for Exam Chronic kidney disease, stage III (moderate);Quinn hy kid w cr Performed By: #### R ENAL, URIC, MG, [id number] #### [facility] [address] Leukocyte esterase Test strip Ql (U) 3+ High Negative [facility] Comment on above: Order Comment: Reaso n for Exam Chronic kidney disease, stage III (moderate);Quinn hy kid w cr Performed By: #### R ENAL, URIC, MG, [id number] #### [facility] [address] [place] [address] Nitrite,Urine Negative Normal Negative [facility] Comment on above: Order Comment: Reaso n for Exam Chronic kidney disease, stage III (moderate);Quinn hy kid w cr Performed By: #### R ENAL, URIC, MG, [id number] #### [facility] [address] [place] [address] Occult Blood,Urine Trace High Negative [facility] Comment on above: Order Comment: Reaso n for Exam Chronic kidney disease, stage III (moderate);Quinn hy kid w cr Performed By: #### R ENAL, URIC, MG, [id number] #### [facility] [address] pH (U) 5.5 [pH] Normal 5.0-9.0 [facility] Comment on above: Order Comment: Reaso n for Exam Chronic kidney disease, stage III (moderate);Quinn hy kid w cr Performed By: #### R ENAL, URIC, MG, [id number] #### [facility] [address] [place] [address] Protein (U) [Mass/Vol] 100 mg/dL High Negative [facility] Comment on above: Order Comment: Reaso n for Exam Chronic kidney disease, stage III (moderate);Quinn hy kid w cr Performed By: #### R ENAL, URIC, MG, [id number] #### [facility] [address] [place] [address] RBC,Urine 1-2 Normal 0-4 [facility] Comment on above: Order Comment: Reaso n for Exam Chronic kidney disease, stage III (moderate);Quinn hy kid w cr Performed By: #### R ENAL, URIC, MG, [id number] #### [facility] [address] [place] [address] Specificy [place],Urine 1.020 Normal 1.001-1.030 [facility] Comment on above: Order Comment: Reaso n for Exam Chronic kidney disease, stage III (moderate);Quinn hy kid w cr Performed By: #### R ENAL, URIC, MG, [id number] #### [facility] [address] [place], [place] [id number] [facility] Squamous Epithelial Cell,Urine 1-2 Normal 0-2 [facility] Comment on above: Order Comment: Reaso n for Exam Chronic kidney disease, stage III (moderate);Quinn hy kid w cr Performed By: #### R ENAL, URIC, MG, [id number] #### [facility] [address] [place], [place] [id number] [facility] Urobilinogen,Urine Normal Normal Normal [facility] Comment on above: Order Comment: Reaso n for Exam Chronic kidney disease, stage III (moderate);Quinn hy kid w cr Performed By: #### R ENAL, URIC, MG, [id number] #### [facility] [address] [place] [address] WBC,Urine Innumerable High 0-4 [facility] Comment on above: Order Comment: Reaso n for Exam Chronic kidney disease, stage III (moderate);Quinn hy kid w cr Performed By: #### R ENAL, URIC, MG, [id number] #### [facility] [address] [place] [address] Erythrocyte distribution wid th Auto (RBC) [Ratio]Ordered By: Zaina Leigh on 09-02-2023 Erythrocyte distribution width (RBC) [Ratio] 14.3 % 11.9-15.3 [facility] Free K+L LT Chains, Qn, Son 09-02-2023 Free [place] Light Chains, S 35.2 mg/L High 3.3-19.4 [facility] Comment on above: Order Comment: Reaso n for Exam Chronic kidney disease, stage III (moderate);Quinn hy kid w cr Performed By: #### R ENAL, URIC, MG, [id number] #### [facility] [address] [place] [address] Free Lambda Light Chains, S 28.3 mg/L High 5.7-26.3 [facility] Comment on above: Order Comment: Reaso n for Exam Chronic kidney disease, stage III (moderate);Quinn hy kid w cr Performed By: #### R ENAL, URIC, MG, [id number] #### [facility] [address] [place] [address] [place]/Lambda Ratio, S 1.24 Normal 0.26-1.65 [facility] Comment on above: Order Comment: Reaso n for Exam Chronic kidney disease, stage III (moderate);Quinn hy kid w cr Result Comment: Perf ormed at: - [facility] [address] [id number] Manager Front Office: Varun Gustafson PhD, Phone: [phone] PERFORMED BY: [address] [place] [address] PATHOLOGIST [employer]YWALL TAPER HELPER ALEXA BETANCOURT M.D. Performed By: #### R ENAL, URIC, MG, [id number] #### [address] Gamma globulin/Protein.total in 24 hour Urine by ElectrophoresisOrdered By: Zaina Leigh on 09-02-2023 Gamma globulin Elph (24H U) [Mass fraction] 6.7 % . [facility] Glucose [Mass/volume] in Ser um or PlasmaOrdered By: Zaina Leigh on 09-02-2023 Glucose [Mass/Vol] 229 mg/dL 70-100 [facility] Comment on above: ADA recommended refe rence rangeRandom Glucose Reference Range is dependent on time and content of last meal. Glucose of more than 200 mg/dL in a nonstressed, ambulatory subject supports the diagnosis of Diabetes Mellitus. Hematocrit Auto (Bld) [Volum e fraction]Ordered By: Zaina Leigh on 09-02-2023 Hematocrit (Bld) [Volume fraction] 36.4 % 34.0-46.4 [facility] Hemoglobin [Mass/volume] in BloodOrdered By: Zaina Leigh on 09-02-2023 Hemoglobin (Bld) [Mass/Vol] 12.0 g/dL 11.8-15.4 [facility] Hemogram CBC Without Diffon 09-02-2023 Erythrocyte distribution width (RBC) [Ratio] 14.3 % Normal 11.9-15.3 [facility] Comment on above: Order Comment: Reaso n for Exam Chronic kidney disease, stage III (moderate);Diabetes mellit Performed By: #### C BCNO #### [facility] [address] [place] [address] Hematocrit (Bld) [Volume fraction] 36.4 % Normal 34.0-46.4 [facility] Comment on above: Order Comment: Reaso n for Exam Chronic kidney disease, stage III (moderate);Diabetes mellit Performed By: #### C BCNO #### [facility] [address] [place] [address] [place] Hemoglobin (Bld) [Mass/Vol] 12.0 g/dL Normal 11.8-15.4 [facility] Comment on above: Order Comment: Reaso n for Exam Chronic kidney disease, stage III (moderate);Diabetes mellit Performed By: #### C BCNO #### [facility] [address] MCH (RBC) [Entitic mass] 30.6 pg Normal 24.7-34.3 [facility] Comment on above: Order Comment: Reaso n for Exam Chronic kidney disease, stage III (moderate);Diabetes mellit Performed By: #### C BCNO #### [facility] [address] MCV (RBC) [Entitic vol] 92.6 fL Normal 80-100 [facility] Comment on above: Order Comment: Reaso n for Exam Chronic kidney disease, stage III (moderate);Diabetes mellit Performed By: #### C BCNO #### [facility] [address] [place] [address] Mean Corpuscular HGB Conc 33.0 g/dL Normal 32.0-35.0 [facility] Comment on above: Order Comment: Reaso n for Exam Chronic kidney disease, stage III (moderate);Diabetes mellit Performed By: #### C BCNO #### [address] Platelet mean volume (Bld) [Entitic vol] 8.4 fL Normal 6.3-10.7 [facility] Comment on above: Order Comment: Reaso n for Exam Chronic kidney disease, stage III (moderate);Diabetes mellit Result Comment: PERF ORMED BY: [place] [address] PATHOLOGIST [employer] HELPER ALEXA BETANCOURT M.D. Performed By: #### C BCNO #### [address] Platelets (Bld) [#/Vol] 189 10*3/uL Normal 150-450 [facility] Comment on above: Order Comment: Reaso n for Exam Chronic kidney disease, stage III (moderate);Diabetes mellit Performed By: #### C BCNO #### [facility] [address] RBC (Bld) [#/Vol] 3.93 10*6/uL Normal 3.60-5.00 [facility] Comment on above: Order Comment: Reaso n for Exam Chronic kidney disease, stage III (moderate);Diabetes mellit Performed By: #### C BCNO #### [facility] [address] [place] [id number] [facility] WBC (Bld) [#/Vol] 9.3 10*3/uL Normal 3.8-11.6 [facility] Comment on above: Order Comment: Reaso n for Exam Chronic kidney disease, stage III (moderate);Diabetes mellit Performed By: #### C BCNO #### [facility] [address] [place] [id number] [facility] IgA [Mass/volume] in Serum o r PlasmaOrdered By: Zaina Reese on 09-02-2023 IgA [Mass/Vol] 300 mg/dL 87-352 [facility] IgG [Mass/volume] in Serum o r PlasmaOrdered By: Zaina Reese on 09-02-2023 IgG [Mass/Vol] 725 mg/dL [phone] [facility] IgM [Mass/volume] in Serum o r PlasmaOrdered By: Zaina Reese on 09-02-2023 IgM [Mass/Vol] 65 mg/dL 26-217 [facility] Immunofixation for UrineOrde red By: Zaina Finer on 09-02-2023 Interpretation Immunofixation (U) [Interp] See comment . [facility] Comment on above: No monoclonality det ected.Performed at: - [facility] [address] [id number] Director: Varun Gustafson PhD, Phone: [phone] Immunofixation, (MAIDA), Urine on 09-02-2023 Immunofixation, (MAIDA), Urine Normal . [facility] Comment on above: Order Comment: Reaso n for Exam Chronic kidney disease, stage III (moderate);Quinn hy kid w cr Result Comment: No m onoclonality detected. Performed at: - [facility] [address] [id number] Manager Front Office: Varun Gustafson PhD, Phone: [phone] Performed By: #### R ENAL, URIC, MG, [id number] #### [facility] [address] [place] [address] [place] Immunofixation,Serumon 09-02 Immunofixation, Serum Normal . [facility] Comment on above: Order Comment: Reaso n for Exam Chronic kidney disease, stage III (moderate);Quinn hy kid w cr Result Comment: No m onoclonality detected. Performed By: #### R ENAL, URIC, MG, [id number] #### [place] [address] [place] Immunoglobulin A, Serum 300 mg/dL Normal 87-352 [facility] Comment on above: Order Comment: Reaso n for Exam Chronic kidney disease, stage III (moderate);Quinn hy kid w cr Performed By: #### R ENAL, URIC, MG, [id number] #### [facility] [address] [place] [id number] [place] Immunoglobulin G 725 mg/dL Normal [phone] [facility] Comment on above: Order Comment: Reaso n for Exam Chronic kidney disease, stage III (moderate);Quinn hy kid w cr Performed By: #### R ENAL, URIC, MG, [id number] #### [facility] [address] [place] [id number] [place] Immunoglobulin M, Serum 65 mg/dL Normal 26-217 [facility] Comment on above: Order Comment: Reaso n for Exam Chronic kidney disease, stage III (moderate);Quinn hy kid w cr Performed By: #### R ENAL, URIC, MG, [id number] #### [facility] [address] [place] [address] [place] Immunoglobulin light chains. kappa.free [Mass/volume] in SerumOrdered By: Zaina Leigh on 09-02-2023 Immunoglobulin light chains.kappa.free (S) [Mass/Vol] 35.2 mg/L 3.3-19.4 [facility] Immunoglobulin light chains. kappa.free/Immunoglobulin light chains.lambda.free [MassOrdered By: Zaina Leigh on 09-02-2023 Immunoglobulin light chains.kappa.free/Immuno globulin light chains.lambda.free (S) [Mass ratio] 1.24 0.26-1.65 [facility] Comment on above: Performed at: [address] [id number] Director: Varun Gustafson PhD, Phone: [phone] Immunoglobulin light chains. lambda.free [Mass/volume] in Serum or PlasmaOrdered By: Zaina Leigh on 09-02-2023 Immunoglobulin light chains.lambda.free [Mass/Vol] 28.3 mg/L 5.7-26.3 [facility] Ketones Auto test strip (U) [Mass/Vol]Ordered By: Zaina Leigh on 09-02-2023 Ketones (U) [Mass/Vol] Negative Negative [facility] - UrinalysisOrder ed By: Zaina Leigh on 09-02-2023 Hyaline casts LM Ql (Urine sed) None seen [LPF] 0-8 [facility] Leukocytes [#/volume] correc feng for nucleated erythrocytes in Blood by Automated counOrdered By: Zaina Leigh on 09-02-2023 WBC corrected for nucl RBC Auto (Bld) [#/Vol] 9.3 10*3/uL 3.8-11.6 [facility] MCH Auto (RBC) [Entitic mass ]Ordered By: Zaina Leigh on 09-02-2023 MCH (RBC) [Entitic mass] 30.6 pg 24.7-34.3 [facility] MCHC Auto (RBC) [Mass/Vol]Or dered By: Zaina Leigh on 09-02-2023 MCHC (RBC) [Mass/Vol] 33.0 g/dL 32.0-35.0 [facility] MCV Auto (RBC) [Entitic vol] Ordered By: Zaina Leigh on 09-02-2023 MCV (RBC) [Entitic vol] 92.6 fL 80-100 [facility] Magnesiumon 09-02-2023 Magnesium [Mass/Vol] 1.8 mg/dL Low 1.9-2.7 [facility] Comment on above: Performed By: #### R ENAL, URIC, MG, [id number] #### [facility] [address] Magnesium [Mass/volume] in S jazzy or PlasmaOrdered By: Zaina Leigh on 09-02-2023 Magnesium [Mass/Vol] 1.8 mg/dL 1.9-2.7 [facility] Nitrite Test strip Ql (U)Ord ered By: Zaina Leigh on 09-02-2023 Nitrite Ql (U) Negative Negative [facility] No Panel InformationOrdered By: Zaina Leigh on 09-02-2023 Estimated GFR (CKD-EPI) 54.233 mL/Min [facility] Protein Electrophoresis M-Bobo Comment: g/dL Not Observed [facility] Comment on above: SPE shows an asymmet rical beta. Protein Electrophoresis Note See comment . [facility] Comment on above: Protein electrophore sis scan will follow via computer,mail, or production grip delivery. Serum Immunofixation See comment . [facility] Comment on above: No monoclonality det ected. Urine Random Prot Electrophor Note See comment . [facility] Comment on above: Protein electrophore sis scan will follow via computer,mail, or production grip delivery. Protein electrophoresis scan will follow via computer,mail, or production grip delivery.Performed at: [address] [id number] Director: Varun Gustafson PhD, Phone: [phone] --- 09/04/23 5421 ---Please Note: previously reported as: Protein electrophoresis scan will follow via computer,mail, or production grip delivery. Parathyrin.intact [Mass/volu me] in Serum or PlasmaOrdered By: Zaina Leigh on 09-02-2023 Parathyrin.intact [Mass/Vol] 62.5 pg/mL [facility] Parathyroid Hormone Intacton 09-02-2023 Parathyroid Hormone Intact 62.5 pg/mL Normal [facility] Comment on above: Order Comment: Reaso n for Exam Chronic kidney disease, stage III (moderate);Quinn cheng cr Result Comment: PERF ORMED BY: [place] [address] PATHOLOGIST DR[employer] HELPER ALEXA BETANCOURT M.D. Performed By: #### R ENAL, URIC, MG, [id number] #### [facility] [address] [place] [address] Phosphate [Mass/volume] in S jazzy or PlasmaOrdered By: Zaina Reese on 09-02-2023 Phosphate [Mass/Vol] 3.6 mg/dL 3.7-7.2 [facility] Platelet mean volume Auto (B ld) [Entitic vol]Ordered By: Zaina Reese on 09-02-2023 Platelet mean volume (Bld) [Entitic vol] 8.4 fL 6.3-10.7 [facility] Platelets Auto (Bld) [#/Vol] Ordered By: Zaina Reese on 09-02-2023 Platelets (Bld) [#/Vol] 189 10*3/uL 150-450 [facility] Potassium [Moles/volume] in Serum or PlasmaOrdered By: Zaina Reese on 09-02-2023 Potassium [Moles/Vol] 3.9 mmol/L 3.5-5.1 [facility] Protein Auto test strip (U) [Mass/Vol]Ordered By: Zaina Reese on 09-02-2023 Protein (U) [Mass/Vol] 100 mg/dL Negative Fi [facility] Protein Creat Ratio Ur Rando mon 09-02-2023 Creatinine, Urine (Random) 40.0 mg/dL High 11.0-20.0 [facility] Comment on above: Order Comment: Reaso n for Exam Chronic kidney disease, stage III (moderate);Quinn philip w cr Performed By: #### R ENAL, URIC, MG, [id number] #### [facility] [address] [place] [address] Protein (U) [Mass/Vol] 76 mg/dL High 0-9 [facility] Comment on above: Order Comment: Reaso n for Exam Chronic kidney disease, stage III (moderate);Quinn hy kid w cr Performed By: #### R ENAL, URIC, MG, [id number] #### [facility] [address] [place] [id number] [facility] Urine Protein/Creatinine Ratio 1900 mg/g{Cre} High 0-200 [facility] Comment on above: Order Comment: Reaso n for Exam Chronic kidney disease, stage III (moderate);Quinn hy kid w cr Result Comment: PERF ORMED BY: [facility] [address] [place] [address] PATHOLOGIST DRYWALL TAPER HELPER ALEXA BETANCOURT M.D. Performed By: #### R ENAL, URIC, MG, [id number] #### [facility] [address] Protein Electro, Random Urin michael 09-02-2023 Albumin, Urine 66.8 % Normal . [facility] Comment on above: Order Comment: Reaso n for Exam Chronic kidney disease, stage III (moderate);Quinn hy kid w cr Performed By: #### R ENAL, URIC, MG, [id number] #### [facility] [address] [place] [address] [place] Kkgyb-5-Udpxqyfe, Urine 4.4 % Normal . [facility] Comment on above: Order Comment: Reaso n for Exam Chronic kidney disease, stage III (moderate);Quinn hy kid w cr Performed By: #### R ENAL, URIC, MG, [id number] #### [facility] [address] [place] [id number] [place] Icmyj-3-Gxgmekhz, Urine 3.6 % Normal . [facility] Comment on above: Order Comment: Reaso n for Exam Chronic kidney disease, stage III (moderate);Quinn hy kid w cr Performed By: #### R ENAL, URIC, MG, [id number] #### [facility] [address] [place] [phone] [place] Beta Globulin, Urine 18.6 % Normal . [facility] Comment on above: Order Comment: Reaso n for Exam Chronic kidney disease, stage III (moderate);Quinn hy kid w cr Performed By: #### R ENAL, URIC, MG, [id number] #### [facility] [address] [place] [address] Gamma Globulin, Urine 6.7 % Normal . [facility] Comment on above: Order Comment: Reaso n for Exam Chronic kidney disease, stage III (moderate);Quinn hy kid w cr Performed By: #### R ENAL, URIC, MG, [id number] #### [facility] [address] [place] [address] M-Bobo % Not Observed Normal Not Observed [facility] Comment on above: Order Comment: Reaso n for Exam Chronic kidney disease, stage III (moderate);Quinn hy kid w cr Performed By: #### R ENAL, URIC, MG, [id number] #### [facility] [address] [place] [address] Please Note: Normal . [facility] Comment on above: Order Comment: Reaso n for Exam Chronic kidney disease, stage III (moderate);Quinn hy kid w cr Result Comment: Prot ein electrophoresis scan will follow via computer, mail, or production grip delivery. Protein electrophoresis scan will follow via computer, mail, or production grip delivery. Performed at: [place] [id number] Manager Front Office: Varun Gustafson PhD, Phone: [phone] --- 09/04/23 [facility] --- Please Note: previously reported as: Protein electrophoresis scan will follow via computer, mail, or production grip delivery. PERFORMED BY: [place] [address] PATHOLOGIST DRYWALL T[employer]ER HELPER ALEXA BETANCOURT M.D. Performed By: #### R ENAL, URIC, MG, [id number] #### [facility] [address] [place] [address] Protein (U) [Mass/Vol] 82.8 mg/dL Normal Not Estab. [facility] Comment on above: Order Comment: Reaso n for Exam Chronic kidney disease, stage III (moderate);Quinn hy kid w cr Performed By: #### R ENAL, URIC, MG, [id number] #### [facility] [address] Protein Electrophoresis, Ser umon 09-02-2023 Albumin [Mass/Vol] 3.3 g/dL Normal 2.9-4.4 [facility] Comment on above: Order Comment: Reaso n for Exam Chronic kidney disease, stage III (moderate);Quinn hy kid w cr Performed By: #### R ENAL, URIC, MG, [id number] #### [facility] [address] [place] [address] Albumin/Globulin [Mass ratio] 1.1 {ratio} Normal 0.7-1.7 [facility] Comment on above: Order Comment: Reaso n for Exam Chronic kidney disease, stage III (moderate);Quinn hy kid w cr Performed By: #### R ENAL, URIC, MG, [id number] #### [facility] [address] [place] [address] Ognyg-2-Nwsgnixi 0.3 g/dL Normal 0.0-0.4 [facility] Comment on above: Order Comment: Reaso n for Exam Chronic kidney disease, stage III (moderate);Quinn hy kid w cr Performed By: #### R ENAL, URIC, MG, [id number] #### [facility] [address] [place] [address] Wzbtk-4-Rmnyfmqp 1.1 g/dL High 0.4-1.0 [facility] Comment on above: Order Comment: Reaso n for Exam Chronic kidney disease, stage III (moderate);Quinn hy kid w cr Performed By: #### R ENAL, URIC, MG, [id number] #### [facility] [address] [place] [address] Beta Globulin 1.0 g/dL Normal 0.7-1.3 [facility] Comment on above: Order Comment: Reaso n for Exam Chronic kidney disease, stage III (moderate);Quinn hy kid w cr Performed By: #### R ENAL, URIC, MG, [id number] #### [facility] [address] Gamma Globulin 0.7 g/dL Normal 0.4-1.8 [facility] Comment on above: Order Comment: Reaso n for Exam Chronic kidney disease, stage III (moderate);Quinn hy kid w cr Performed By: #### R ENAL, URIC, MG, [id number] #### [facility] [address] Globulin (S) [Mass/Vol] 3.0 g/dL Normal 2.2-3.9 [facility] Comment on above: Order Comment: Reaso n for Exam Chronic kidney disease, stage III (moderate);Quinn hy kid w cr Performed By: #### R ENAL, URIC, MG, [id number] #### [address] M-Bobo Comment: Normal Not Observed [facility] Comment on above: Order Comment: Reaso n for Exam Chronic kidney disease, stage III (moderate);Quinn hy kid w cr Result Comment: SPE shows an asymmetrical beta. Performed By: #### R ENAL, URIC, MG, [id number] #### [address] Protein [Mass/Vol] 6.3 g/dL Normal 6.0-8.5 [facility] Comment on above: Order Comment: Reaso n for Exam Chronic kidney disease, stage III (moderate);Quinn hy kid w cr Performed By: #### R ENAL, URIC, MG, [id number] #### [address] SPE-Note Normal . [facility] Comment on above: Order Comment: Reaso n for Exam Chronic kidney disease, stage III (moderate);Quinn hy kid w cr Result Comment: Prot ein electrophoresis scan will follow via computer, mail, or production grip delivery. Performed By: #### R ENAL, URIC, MG, [id number] #### [place] [id number] [place] Protein [Mass/volume] in Ser um or PlasmaOrdered By: Zaina Leigh on 09-02-2023 Protein [Mass/Vol] 6.3 g/dL 6.0-8.5 [facility] Protein [Mass/volume] in Uri neOrdered By: Zaina Leigh on 09-02-2023 Protein (U) [Mass/Vol] 76 mg/dL 0-9 [facility] Protein (U) [Mass/Vol] 82.8 mg/dL Not Estab. [facility] Protein.monoclonal/Protein.t otal in 24 hour Urine by ElectrophoresisOrdered By: Zaina Leigh on 09-02-2023 Protein.monoclonal Elph (24H U) [Mass fraction] Not observed % Not Observed [facility] RBC Auto (Bld) [#/Vol]Ordere d By: Zaina Leigh on 09-02-2023 RBC (Bld) [#/Vol] 3.93 10*6/uL 3.60-5.00 [facility] Renal Function Panelon 09-02 Albumin [Mass/Vol] 3.8 g/dL Normal 3.5-5.7 [facility] Comment on above: Performed By: #### R ENAL, URIC, MG, [id number] #### [facility] [address] Anion gap [Moles/Vol] 15.9 mmol/L High 6.0-15.0 [facility] Comment on above: Performed By: #### R ENAL, URIC, MG, [id number] #### [facility] [address] Calcium [Mass/Vol] 9.0 mg/dL Normal 8.6-10.3 [facility] Comment on above: Performed By: #### R ENAL, URIC, MG, [id number] #### [facility] [address] Chloride [Moles/Vol] 107 mmol/L Normal 98-107 [facility] Comment on above: Performed By: #### R ENAL, URIC, MG, [id number] #### [facility] [address] CO2 [Moles/Vol] 26.0 mmol/L Normal 21.0-31.0 [facility] Comment on above: Performed By: #### R ENAL, URIC, MG, [id number] #### [facility] [address] Creatinine [Mass/Vol] 1.12 mg/dL Normal 0.60-1.20 [facility] Comment on above: Performed By: #### R ENAL, URIC, MG, [id number] #### [facility] [address] [place] [address] [place] GFR/1.73 sq M.predicted MDRD (S/P/Bld) [Vol rate/Area] 54.233 mL/min/{1.73_m2} Normal [facility] Comment on above: Performed By: #### R ENAL, URIC, MG, [id number] #### [address] Glucose [Mass/Vol] 229 mg/dL High 70-100 [facility] Comment on above: Result Comment: [facility] Glucose Reference Range is dependent on time and content of last meal. Glucose of more than 200 mg/dL in a nonstressed, ambulatory subject supports the diagnosis of Diabetes Mellitus. ADA recommended reference range Performed By: #### R ENAL, URIC, MG, [id number] #### [address] Phosphate [Mass/Vol] 3.6 mg/dL Low 3.7-7.2 [facility] Comment on above: Performed By: #### R ENAL, URIC, MG, [id number] #### [address] Potassium [Moles/Vol] 3.9 mmol/L Normal 3.5-5.1 [facility] Comment on above: Performed By: #### R ENAL, URIC, MG, [id number] #### [address] Sodium [Moles/Vol] 145 mmol/L Normal 136-145 [facility] Comment on above: Performed By: #### R ENAL, URIC, MG, [id number] #### [facility] [address] Urea nitrogen [Mass/Vol] 13 mg/dL Normal 7-25 [facility] Comment on above: Performed By: #### R ENAL, URIC, MG, [id number] #### [facility] [address] Serum globulin measurement ( mass/volume)Ordered By: Zaina Finer on 09-02-2023 Globulin (S) [Mass/Vol] 3.0 g/dL 2.2-3.9 [facility] Serum or plasma albumin/glob ulin mass ratioOrdered By: Zaina Reese on 09-02-2023 Albumin/Globulin [Mass ratio] 1.1 {ratio} 0.7-1.7 [facility] Serum or plasma alpha 1 glob ulin measurement by electrophoresis (mass/volume)Ordered By: Zaina Reese on 09-02-2023 Alpha 1 globulin Elph [Mass/Vol] 0.3 g/dL 0.0-0.4 [facility] Serum or plasma alpha 2 glob ulin measurement by electrophoresis (mass/volume)Ordered By: Zaina Reese on 09-02-2023 Alpha 2 globulin Elph [Mass/Vol] 1.1 g/dL 0.4-1.0 [facility] Serum or plasma anion gap de terminationOrdered By: Zaina Reese on 09-02-2023 Anion gap [Moles/Vol] 15.9 mmol/L 6.0-15.0 [facility] Serum or plasma beta globuli n measurement by electrophoresis (mass/volume)Ordered By: Zaina Reese on 09-02-2023 Beta globulin Elph [Mass/Vol] 1.0 g/dL 0.7-1.3 [facility] Serum or plasma gamma globul in measurement by electrophoresis (mass/volume)Ordered By: Zaina Reese on 09-02-2023 Gamma globulin Elph [Mass/Vol] 0.7 g/dL 0.4-1.8 [facility] Sodium [Moles/volume] in Ser um or PlasmaOrdered By: Zaina Leigh on 09-02-2023 Sodium [Moles/Vol] 145 mmol/L 136-145 [facility] Specific gravity Auto test s trip (U) [Rel density]Ordered By: Zaina Leigh on 09-02-2023 Specific gravity (U) [Rel density] 1.020 1.001-1.030 [facility] Squamous epithelial cells de tection in urine sediment by light microscopyOrdered By: Zaina Leigh on 09-02-2023 Epithelial cells.squamous LM Ql (Urine sed) 1-2 [HPF] 0-2 [facility] Urate [Mass/volume] in Serum or PlasmaOrdered By: Zaina Leigh on 09-02-2023 Urate [Mass/Vol] 4.1 mg/dL 2.3-6.6 [facility] Urea nitrogen [Mass/volume] in Serum or PlasmaOrdered By: Zaina Leigh on 09-02-2023 Urea nitrogen [Mass/Vol] 13 mg/dL 7-25 [facility] Uric Acidon 09-02-2023 Urate [Mass/Vol] 4.1 mg/dL Normal 2.3-6.6 [facility] Comment on above: Performed By: #### R ENAL, URIC, MG, [id number] #### [address] Urine Cultureon 09-02-2023 Bacteria identified Cx Nom (U) ORGANISM: Klebsiella pneumoniae (O:KLEPNE) [place] Count >100,000 ORGANISM: Staphylococcus aureus (O:STAAUR) [place] Count 20,000 Aerobic YANG Charge (NMIC56) ----- SUSCEPTIBILITY ---- ORGANISM: O:KLEPNE ANTIBIOTIC INTERPRETATION YANG Amikacin S <16 Amoxacillin/K Clavulanate S <8 Ampicillin/Sulbactam S <4 Aztreonam S <4 Cefazolin S <2 Cefepime S <2 Ceftazidime S <1 Ceftazidime/Avibacta m S <4 Ceftolozane/Tazobact am S <2 Ceftriaxone S <1 Cefuroxime S <4 Ciprofloxacin S <0.25 Ertapenem S <0.5 Gentamicin S <2 Levofloxacin S <0.5 Meropenem S <1 Meropenem/Vaborbacta m S <2 Nitrofurantoin S <32 Piperacillin/Tazobac cohen S <8 Tetracycline S <4 Tigecycline S <2 Tobramycin S <2 Trimethoprim/Sulfame thoxazole S <0.5 Aerobic YANG Charge (PCMIC38) ----- SUSCEPTIBILITY ---- ORGANISM: O:STAAUR ANTIBIOTIC INTERPRETATION YANG Ceftaroline S <0.5 Ciprofloxacin S <1 Daptomycin S <0.5 Levofloxacin S <1 Linezolid S 2 Nitrofurantoin S <32 Oxacillin S <0.25 Penicillin DALY >2 Tetracycline S <4 Trimethoprim/Sulfame thoxazole S <0.5 Vancomycin S 1 S = SUSCEPTIBLE I = INTERMEDIATE R = RESISTANT BLANK = DATA NOT AVAILABLE, OR DRUG NOT ADVISABLE OR TESTED R* = RESISTANCE DUE TO EXTENDED SPECTRUM BETA-LACTAMASES ESBL = EXTENDED SPECTRUM BETA-LACTAMASE TFG = THYMIDINE-DEPENDENT STRAIN DALY = BETA-LACTAMASE POSITIVE IB = INDUCIBLE BETA-LACTAMASE. APPEARS IN PLACE OF 'S' WITH SPECIES KNOWN TO POSSESS INDUCIBLE BETA-LACTAMASES. POTENTIALLY THEY MAY BECOME RESISTANT TO ALL B-LACTAM DRUGS. PERFORMED BY: [facility] [address] [place] [address] PATHOLOGIST [employer] HELPER ALEXA BETANCOURT M.D. Normal [facility] Comment on above: Performed By: #### R ENBONILLA, URIC, MG, [id number] #### [facility] [address] Urine alpha 1 globulin/total protein by electrophoresisOrdered By: Zaina Leigh on 09-02-2023 Alpha 1 globulin Elph (U) [Mass fraction] 4.4 % . [facility] Urine alpha 2 globulin/total protein ratio by electrophoresisOrdered By: Zaina Leigh on 09-02-2023 Alpha 2 globulin Elph (U) [Mass fraction] 3.6 % . [facility] Urine bacteria detection by automated methodOrdered By: Zaina Leigh on 09-02-2023 Bacteria Auto Ql (U) 4+ None Seen [facility] Urine beta globulin measurem ent by electrophoresis (mass/volume)Ordered By: Zaina Leigh on 09-02-2023 Beta globulin Elph (U) [Mass/Vol] 18.6 % . [facility] Urine clarity by refractomet ry automatedOrdered By: Zaina Leigh on 09-02-2023 Clarity Refractometry automated (U) Cloudy Clear [facility] Urine culture routineOrdered By: Zaina Leigh on 09-02-2023 Bacteria identified Cx Nom (U) Klebsiella pneumoniae [facility] Bacteria identified Cx Nom (U) Staphylococcus aureus [facility] Urine glucose measurement by automated test strip (mass/volume)Ordered By: Zaina Leigh on 09-02-2023 Glucose Auto test strip (U) [Mass/Vol] >=1000 mg/dL Normal [facility] Urine hemoglobin detection b y automated test stripOrdered By: Zaina Leigh on 09-02-2023 Hemoglobin Auto test strip Ql (U) Trace Negative [facility] Urine leukocyte esterase det ection by automated test stripOrdered By: Zaina Leigh on 09-02-2023 Leukocyte esterase Auto test strip Ql (U) 3+ Negative [facility] Urine protein/creatinine rat ioOrdered By: Zaina Leigh on 09-02-2023 Protein/Creatinine (U) [Ratio] 1900 mg/g{Cre} 0-200 [facility] Urobilinogen Auto test strip (U) [Mass/Vol]Ordered By: Zaina Leigh on 09-02-2023 Urobilinogen (U) [Mass/Vol] Normal mg/dL Normal [facility] Vitamin D 25 Hydroxy Totalon 09-02-2023 Vitamin D 25 Hydroxy Total 17.4 ng/mL Low 30-100 [facility] Comment on above: Result Comment: ALBIN MIN D STATUS 25(OH)VITAMIN D RANGE (ng/mL) Deficient <20 Insufficient 20 to <30 Sufficient 30 to 100 Reference: David CHEW,Nubia HERNANDES, Thom MARTINEZ, et al. Evaluation,treatment, and prevention of vitamin D deficiency; an Endocrine Society clinical practice guideline. JCEM. 2010; 96(7):1911-. PERFORMED BY: [facility] [address] [place] [address] PATHOLOGIST [employer] HELPER ALEXA BETANCOURT M.D. Performed By: #### R ENAL, URIC, MG, [id number] #### [facility] [address] Vitamin D+Metabolites [Mass/ volume] in Serum or PlasmaOrdered By: Zaina Leigh on 09-02-2023 Vitamin D+Metabolites [Mass/Vol] 17.4 ng/mL 30-100 [facility] Comment on above: VITAMIN D STATUS 25( [place])VITAMIN D RANGE (ng/mL) Deficient <20 Insufficient 20 to <30Sufficient 30 to 100Reference: Nubia Holley, Thom MARTINEZ, et al. Evaluation,treatment, and prevention of vitamin D deficiency; an Endocrine Society clinical practice guideline. JCEM. 2010; 96(7):1911-30. pH Auto test strip (U)Ordere d By: Zaina Leigh on 09-02-2023 pH (U) 5.5 [pH] 5.0-9.0 [facility] Alanine aminotransferase [En zymatic activity/volume] in Serum or PlasmaOrdered By: Angela Aldrich on 08-28-2023 ALT [Catalytic activity/Vol] 15 U/L 7-52 [facility] Albumin [Mass/volume] in Ser um or Plasma by Bromocresol green (BCG) dye binding methoOrdered By: Angela Aldrich on 08-28-2023 Albumin BCG dye [Mass/Vol] 3.8 g/dL 3.5-5.7 [facility] Alkaline phosphatase [Enzyma tic activity/volume] in Serum or PlasmaOrdered By: Angela Aldrich on 08-28-2023 ALP [Catalytic activity/Vol] 66 U/L 34-104 [facility] Aspartate aminotransferase [ Enzymatic activity/volume] in Serum or PlasmaOrdered By: Angela Aldrich on 08-28-2023 AST [Catalytic activity/Vol] 12 U/L 13-39 [facility] Automated erythrocytes count in urine sediment (number/area)Ordered By: Zaina Leigh on 08-28-2023 RBC Auto (Urine sed) [#/Area] 1-2 [HPF] 0-4 [facility] Automated leukocytes count i n urine sediment (number/area)Ordered By: Zaina Leigh on 08-28-2023 WBC Auto (Urine sed) [#/Area] Innumerable [HPF] 0-4 [facility] Bilirubin Auto test strip Ql (U)Ordered By: Zaina Leigh on 08-28-2023 Bilirubin Ql (U) Negative Negative [facility] Bilirubin.total [Mass/volume ] in Serum or PlasmaOrdered By: Angela Aldrich on 08-28-2023 Bilirubin [Mass/Vol] 0.7 mg/dL 0.3-1.0 [facility] Calcium [Mass/volume] in Ser um or PlasmaOrdered By: Angela Aldrich on 08-28-2023 Calcium [Mass/Vol] 8.9 mg/dL 8.6-10.3 [facility] Carbon dioxide, total [Moles /volume] in Serum or PlasmaOrdered By: Angela Aldrich on 08-28-2023 CO2 [Moles/Vol] 27.3 mmol/L 21.0-31.0 [facility] Chloride [Moles/volume] in S jazzy or PlasmaOrdered By: Angela Aldrich on 08-28-2023 Chloride [Moles/Vol] 107 mmol/L 98-107 [facility] Cholesterol [Mass/volume] in Serum or PlasmaOrdered By: Angela Aldrich on 08-28-2023 Cholesterol [Mass/Vol] 152 mg/dL 140-200 [facility] Comment on above: Chol less than 200 m g/dl low riskChol 201-239 mg/dl borderline riskChol 240 mg/dl and greater high risk Cholesterol in LDL Calc [Mas s/Vol]Ordered By: Angela Aldrich on 08-28-2023 Cholesterol in LDL [Mass/Vol] 47 mg/dL 0-100 [facility] Comment on above: LDL ATP III CLASSIFI CATIONLDL less than 100 mg/dL OptimalLDL 100-129 mg/dL Near or above optimalLDL 130-159 mg/dL Borderline highLDL 160-189 mg/dL HighLDL greater than 189 mg/dL Very high Cholesterol in VLDL Calc [Ma ss/Vol]Ordered By: Angela Aldrich on 08-28-2023 Cholesterol in VLDL [Mass/Vol] 72 mg/dL [facility] Comprehensive Metabolic Pane cooper 08-28-2023 Albumin [Mass/Vol] 3.8 g/dL Normal 3.5-5.7 [facility] Comment on above: Order Comment: 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 Performed By: #### C MP, LIPID #### [facility] [address] Albumin/Globulin [Mass ratio] 1.4 {ratio} Normal [facility] Comment on above: Order Comment: 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 Performed By: #### C MP, LIPID #### [facility] [address] [place] [address] [place] ALP [Catalytic activity/Vol] 66 U/L Normal 34-104 [facility] Comment on above: Order Comment: 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 Performed By: #### C MP, LIPID #### [facility] [address] [place] [address] [place] ALT [Catalytic activity/Vol] 15 U/L Normal 7-52 [facility] Comment on above: Order Comment: 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 Performed By: #### C MP, LIPID #### [facility] [address] [place] [address] [place] Anion gap [Moles/Vol] 13.3 mmol/L Normal 6.0-15.0 [facility] Comment on above: Order Comment: 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 Performed By: #### C MP, LIPID #### [facility] [address] [place] [address] [place] AST [Catalytic activity/Vol] 12 U/L Low 13-39 [facility] Comment on above: Order Comment: 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 Performed By: #### C MP, LIPID #### [facility] [address] [place] [address] [place] Bilirubin [Mass/Vol] 0.7 mg/dL Normal 0.3-1.0 [facility] Comment on above: Order Comment: 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 Performed By: #### C MP, LIPID #### [facility] [address] [place] [address] [place] Calcium [Mass/Vol] 8.9 mg/dL Normal 8.6-10.3 [facility] Comment on above: Order Comment: 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 Performed By: #### C MP, LIPID #### [facility] [address] [place] [address] [place] Chloride [Moles/Vol] 107 mmol/L Normal 98-107 [facility] Comment on above: Order Comment: 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 Performed By: #### C MP, LIPID #### [facility] [address] [place] [address] [place] CO2 [Moles/Vol] 27.3 mmol/L Normal 21.0-31.0 [facility] Comment on above: Order Comment: 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 Performed By: #### C MP, LIPID #### [facility] [address] [place] [address] [place] Creatinine [Mass/Vol] 1.03 mg/dL Normal 0.60-1.20 [facility] Comment on above: Order Comment: 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 Performed By: #### C MP, LIPID #### [facility] [address] [place] [address] [place] GFR/1.73 sq M.predicted MDRD (S/P/Bld) [Vol rate/Area] 59.968 mL/min/{1.73_m2} Normal [facility] Comment on above: Order Comment: 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 Performed By: #### C MP, LIPID #### [facility] [address] Globulin (S) [Mass/Vol] 2.7 g/dL Normal [facility] Comment on above: Order Comment: 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 Glucose of more than 200 mg/dL in a nonstressed, ambulatory subject supports the diagnosis of Diabetes Mellitus. 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 Performed By: #### C MP, LIPID #### [facility] [address] [place] [id number] [place] Sodium [Moles/Vol] 144 mmol/L Normal 136-145 [facility] Comment on above: Order Comment: 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 Performed By: #### C MP, LIPID #### [facility] [address] Urea nitrogen [Mass/Vol] 14 mg/dL Normal - [facility] Comment on above: Order Comment: 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 Performed By: #### C MP, LIPID #### [facility] [address] Creatinine [Mass/volume] in Serum or PlasmaOrdered By: Angela Aldrich on 08-28-2023 Creatinine [Mass/Vol] 1.03 mg/dL 0.60-1.20 [facility] Creatinine [Mass/volume] in UrineOrdered By: Zaina Leigh on 08-28-2023 Creatinine (U) [Mass/Vol] 46.0 mg/dL 11.0-20.0 [facility] Dipstick and Microscopicon 1 Appearance (U) Slightly Cloudy Critically abnormal Clear [facility] Comment on above: Order Comment: Reaso n for Exam Chronic kidney disease, stage III (moderate);Quinn hy kid w cr Performed By: #### R ENAL, URIC, MG, [id number] #### [facility] [address] Bacteria,Urine 4+ High None Seen [facility] Comment on above: Order Comment: Reaso n for Exam Chronic kidney disease, stage III (moderate);Quinn hy kid w cr Performed By: #### R ENAL, URIC, MG, [id number] #### [facility] [address] [place] [address] [place] Bilirubin,Urine Negative Normal Negative [facility] Comment on above: Order Comment: Reaso n for Exam Chronic kidney disease, stage III (moderate);Quinn hy kid w cr Performed By: #### R ENAL, URIC, MG, [id number] #### [facility] [address] [place] [address] [place] Color (U) Yellow Normal Yellow [facility] Comment on above: Order Comment: Reaso n for Exam Chronic kidney disease, stage III (moderate);Quinn hy kid w cr Performed By: #### R ENAL, URIC, MG, [id number] #### [facility] [address] Glucose Ql (U) >=1000 High Normal [facility] Comment on above: Order Comment: Reaso n for Exam Chronic kidney disease, stage III (moderate);Quinn hy kid w cr Performed By: #### R ENAL, URIC, MG, [id number] #### [facility] [address] Hyaline Casts,Urine 0-8 Normal 0-8 [facility] Comment on above: Order Comment: Reaso n for Exam Chronic kidney disease, stage III (moderate);Quinn hy kid w cr Result Comment: PERF ORMED BY: [place] [address] PATHOLOGIST [employer] HELPER ALEXA BETANCOURT M.D. Performed By: #### R ENAL, URIC, MG, [id number] #### [address] Ketones Ql (U) Negative Normal Negative [facility] Comment on above: Order Comment: Reaso n for Exam Chronic kidney disease, stage III (moderate);Quinn hy kid w cr Performed By: #### R ENAL, URIC, MG, [id number] #### [facility] [address] [place] [address] Leukocyte esterase Test strip Ql (U) 2+ High Negative [facility] Comment on above: Order Comment: Reaso n for Exam Chronic kidney disease, stage III (moderate);Quinn hy kid w cr Performed By: #### R ENAL, URIC, MG, [id number] #### [facility] [address] [place] [address] Nitrite,Urine Negative Normal Negative [facility] Comment on above: Order Comment: Reaso n for Exam Chronic kidney disease, stage III (moderate);Quinn hy kid w cr Performed By: #### R ENAL, URIC, MG, [id number] #### [facility] [address] [place] [address] Occult Blood,Urine 1+ High Negative [facility] Comment on above: Order Comment: Reaso n for Exam Chronic kidney disease, stage III (moderate);Quinn hy kid w cr Performed By: #### R ENAL, URIC, MG, [id number] #### [facility] [address] [place] [address] pH (U) 5.5 [pH] Normal 5.0-9.0 [facility] Comment on above: Order Comment: Reaso n for Exam Chronic kidney disease, stage III (moderate);Quinn hy kid w cr Performed By: #### R ENAL, URIC, MG, [id number] #### [facility] [address] [place] [address] Protein (U) [Mass/Vol] 100 mg/dL High Negative [facility] Comment on above: Order Comment: Reaso n for Exam Chronic kidney disease, stage III (moderate);Quinn hy kid w cr Performed By: #### R ENAL, URIC, MG, [id number] #### [facility] [address] [place] [address] RBC,Urine 1-2 Normal 0-4 [facility] Comment on above: Order Comment: Reaso n for Exam Chronic kidney disease, stage III (moderate);Quinn hy kid w cr Performed By: #### R ENAL, URIC, MG, [id number] #### [address] Specificy [place],Urine 1.015 Normal 1.001-1.030 [facility] Comment on above: Order Comment: Reaso n for Exam Chronic kidney disease, stage III (moderate);Quinn hy kid w cr Performed By: #### R ENAL, URIC, MG, [id number] #### [facility] [address] [place] [address] Squamous Epithelial Cell,Urine 0-1 Normal 0-2 [facility] Comment on above: Order Comment: Reaso n for Exam Chronic kidney disease, stage III (moderate);Quinn hy kid w cr Performed By: #### R ENAL, URIC, MG, [id number] #### [facility] [address] [place] [address] Urobilinogen,Urine Normal Normal Normal [facility] Comment on above: Order Comment: Reaso n for Exam Chronic kidney disease, stage III (moderate);Quinn hy kid w cr Performed By: #### R ENAL, URIC, MG, [id number] #### [facility] [address] WBC,Urine Innumerable High 0-4 [facility] Comment on above: Order Comment: Reaso n for Exam Chronic kidney disease, stage III (moderate);Quinn hy kid w cr Performed By: #### R ENAL, URIC, MG, [id number] #### [facility] [address] [place] [address] [place] Erythrocyte distribution wid th Auto (RBC) [Ratio]Ordered By: Zaina Leigh on 08-28-2023 Erythrocyte distribution width (RBC) [Ratio] 14.5 % 11.9-15.3 [facility] Globulin Calc (S) [Mass/Vol] Ordered By: Angela Aldrich on 08-28-2023 Globulin (S) [Mass/Vol] 2.7 g/dL [facility] Glucose [Mass/volume] in Ser um or PlasmaOrdered By: Angela Aldrich on 08-28-2023 Glucose [Mass/Vol] 146 mg/dL 70-100 [facility] Comment on above: ADA recommended refe rence rangeRandom Glucose Reference Range is dependent on time and content of last meal. Glucose of more than 200 mg/dL in a nonstressed, ambulatory subject supports the diagnosis of Diabetes Mellitus. Hematocrit Auto (Bld) [Volum e fraction]Ordered By: Zaina Leigh on 08-28-2023 Hematocrit (Bld) [Volume fraction] 35.7 % 34.0-46.4 [facility] Hemoglobin [Mass/volume] in BloodOrdered By: Zaina Leigh on 08-28-2023 Hemoglobin (Bld) [Mass/Vol] 11.9 g/dL 11.8-15.4 [facility] Hemogram CBC Without Diffon 08-28-2023 Erythrocyte distribution width (RBC) [Ratio] 14.5 % Normal 11.9-15.3 [facility] Comment on above: Order Comment: Reaso n for Exam Chronic kidney disease, stage III (moderate);Quinn hy kid w cr Performed By: #### R ENAL, URIC, MG, [id number] #### [address] Hematocrit (Bld) [Volume fraction] 35.7 % Normal 34.0-46.4 [facility] Comment on above: Order Comment: Reaso n for Exam Chronic kidney disease, stage III (moderate);Quinn hy kid w cr Performed By: #### R ENAL, URIC, MG, [id number] #### [address] Hemoglobin (Bld) [Mass/Vol] 11.9 g/dL Normal 11.8-15.4 [facility] Comment on above: Order Comment: Reaso n for Exam Chronic kidney disease, stage III (moderate);Quinn hy kid w cr Performed By: #### R ENAL, URIC, MG, [id number] #### [address] MCH (RBC) [Entitic mass] 30.6 pg Normal 24.7-34.3 [facility] Comment on above: Order Comment: Reaso n for Exam Chronic kidney disease, stage III (moderate);Quinn hy kid w cr Performed By: #### R ENAL, URIC, MG, [id number] #### [address] MCV (RBC) [Entitic vol] 91.9 fL Normal 80-100 [facility] Comment on above: Order Comment: Reaso n for Exam Chronic kidney disease, stage III (moderate);Quinn hy kid w cr Performed By: #### R ENAL, URIC, MG, [id number] #### [facility] [address] [place] [address] Mean Corpuscular HGB Conc 33.2 g/dL Normal 32.0-35.0 [facility] Comment on above: Order Comment: Reaso n for Exam Chronic kidney disease, stage III (moderate);Quinn hy kid w cr Performed By: #### R ENAL, URIC, MG, [id number] #### [address] Platelet mean volume (Bld) [Entitic vol] 8.6 fL Normal 6.3-10.7 [facility] Comment on above: Order Comment: Reaso n for Exam Chronic kidney disease, stage III (moderate);Quinn hy kid w cr Result Comment: PERF ORMED BY: [place] [address] PATHOLOGIST [employer] ALEXA BETANCOURT M.D. Performed By: #### R ENAL, URIC, MG, [id number] #### [address] Platelets (Bld) [#/Vol] 186 10*3/uL Normal 150-450 [facility] Comment on above: Order Comment: Reaso n for Exam Chronic kidney disease, stage III (moderate);Quinn hy kid w cr Performed By: #### R ENAL, URIC, MG, [id number] #### [address] RBC (Bld) [#/Vol] 3.88 10*6/uL Normal 3.60-5.00 [facility] Comment on above: Order Comment: Reaso n for Exam Chronic kidney disease, stage III (moderate);Quinn hy kid w cr Performed By: #### R ENAL, URIC, MG, [id number] #### [address] WBC (Bld) [#/Vol] 8.7 10*3/uL Normal 3.8-11.6 [facility] Comment on above: Order Comment: Reaso n for Exam Chronic kidney disease, stage III (moderate);Quinn hy kid w cr Performed By: #### R ENAL, URIC, MG, [id number] #### [address] Ketones Auto test strip (U) [Mass/Vol]Ordered By: Zaina Leigh on 08-28-2023 Ketones (U) [Mass/Vol] Negative Negative [facility] - UrinalysisOrder ed By: Zaina Leigh on 08-28-2023 Hyaline casts LM Ql (Urine sed) 0-8 [LPF] 0-8 [facility] Leukocytes [#/volume] correc feng for nucleated erythrocytes in Blood by Automated counOrdered By: Zaina Leigh on 08-28-2023 WBC corrected for nucl RBC Auto (Bld) [#/Vol] 8.7 10*3/uL 3.8-11.6 [facility] Lipid Panelon 08-28-2023 Cholesterol [Mass/Vol] 152 mg/dL Normal 140-200 [facility] Comment on above: Order Comment: 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 Result Comment: Chol less than 200 mg/dl low risk Chol 201-239 mg/dl borderline risk Chol 240 mg/dl and greater high risk Performed By: #### C MP, LIPID #### [facility] [address] [id number] [place] Cholesterol in HDL [Mass/Vol] 33 mg/dL Normal 23-92 [facility] Comment on above: Order Comment: 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 Result Comment: HDL CHOL ATP-III CLASSIFICATION Cardiovascular Risk HDL > or equal to 60 mg/dL LOW HDL < 40 mg/dL HIGH Performed By: #### C MP, LIPID #### [facility] [address] [place] [address] [facility] Cholesterol.total/Choles terol in HDL [Mass ratio] 4.6 {ratio} Normal <5.0 [facility] Comment on above: Order Comment: 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 Result Comment: LDL ATP III CLASSIFICATION LDL less than 100 mg/dL Optimal LDL 100-129 mg/dL Near or above optimal LDL 130-159 mg/dL Borderline high LDL 160-189 mg/dL High LDL greater than 189 mg/dL Very high Performed By: #### C MP, LIPID #### [facility] [address] Triglyceride w/Reflex 361 mg/dL High 0-149 [facility] Comment on above: Order Comment: 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 Performed By: #### C MP, LIPID #### [facility] [address] MCH Auto (RBC) [Entitic mass ]Ordered By: Zaina Leigh on 08-28-2023 MCH (RBC) [Entitic mass] 30.6 pg 24.7-34.3 [facility] MCHC Auto (RBC) [Mass/Vol]Or dered By: Zaina Leigh on 08-28-2023 MCHC (RBC) [Mass/Vol] 33.2 g/dL 32.0-35.0 [facility] MCV Auto (RBC) [Entitic vol] Ordered By: Zaina Leigh on 08-28-2023 MCV (RBC) [Entitic vol] 91.9 fL 80-100 [facility] Magnesiumon 08-28-2023 Magnesium [Mass/Vol] 1.9 mg/dL Normal 1.9-2.7 [facility] Comment on above: Order Comment: Reaso n for Exam Chronic kidney disease, stage III (moderate);Quinn hy kid w cr Performed By: #### R ENAL, URIC, MG, [id number] #### [facility] [address] Magnesium [Mass/volume] in S jazzy or PlasmaOrdered By: Zaina Reese on 08-28-2023 Magnesium [Mass/Vol] 1.9 mg/dL 1.9-2.7 [facility] No Panel InformationOrdered By: Angela Aldrich on 08-28-2023 Estimated GFR (CKD-EPI) 59.968 mL/Min [facility] Creatinine Clearance (Chem N/A [facility] Parathyrin.intact [Mass/volu me] in Serum or PlasmaOrdered By: Zaina Reese on 08-28-2023 Parathyrin.intact [Mass/Vol] 68.0 pg/mL [facility] Parathyroid Hormone Intacton 08-28-2023 Parathyroid Hormone Intact 68.0 pg/mL Normal [facility] Comment on above: Order Comment: Reaso n for Exam Chronic kidney disease, stage III (moderate);Quinn cheng cr Result Comment: PERF ORMED BY: [facility] [address] [place] [address] PATHOLOGIST [employer] HELPER ALEXA BETANCOURT M.D. Performed By: #### R ENAL, URIC, MG, [id number] #### [facility] [address] [id number] [facility] Phosphate [Mass/volume] in S jazzy or PlasmaOrdered By: Zaina Reese on 08-28-2023 Phosphate [Mass/Vol] 4.6 mg/dL 3.7-7.2 [facility] Platelet mean volume Auto (B ld) [Entitic vol]Ordered By: Zaina Reese on 08-28-2023 Platelet mean volume (Bld) [Entitic vol] 8.6 fL 6.3-10.7 [facility] Platelets Auto (Bld) [#/Vol] Ordered By: Zaina Reese on 08-28-2023 Platelets (Bld) [#/Vol] 186 10*3/uL 150-450 [facility] Potassium [Moles/volume] in Serum or PlasmaOrdered By: Angela Aldrich on 08-28-2023 Potassium [Moles/Vol] 3.6 mmol/L 3.5-5.1 [facility] Protein Auto test strip (U) [Mass/Vol]Ordered By: Zaina Leigh on 08-28-2023 Protein (U) [Mass/Vol] 100 mg/dL Negative Fi [facility] Protein Creat Ratio Ur Rando mon 08-28-2023 Creatinine, Urine (Random) 46.0 mg/dL High 11.0-20.0 [facility] Comment on above: Order Comment: Reaso n for Exam Chronic kidney disease, stage III (moderate);Quinn hy kid w cr Performed By: #### P ROCRERAT #### [facility] [address] Protein (U) [Mass/Vol] 96 mg/dL High 0-9 [facility] Comment on above: Order Comment: Reaso n for Exam Chronic kidney disease, stage III (moderate);Quinn hy kid w cr Performed By: #### P ROCRERAT #### [facility] [address] Urine Protein/Creatinine Ratio 2087 mg/g{Cre} High 0-200 [facility] Comment on above: Order Comment: Reaso n for Exam Chronic kidney disease, stage III (moderate);Quinn hy kid w cr Result Comment: PERF ORMED BY: [place] [id number] PATHOLOGIST [employer] HELPER ALEXA BETANCOURT M.D. Performed By: #### P ROCRERAT #### [facility] [address] [place] [address] [place] Protein [Mass/volume] in Ser um or PlasmaOrdered By: Angela Aldrich on 08-28-2023 Protein [Mass/Vol] 6.5 g/dL 6.4-8.9 [facility] Protein [Mass/volume] in Uri neOrdered By: Zaina Finer on 08-28-2023 Protein (U) [Mass/Vol] 96 mg/dL 0-9 [facility] RBC Auto (Bld) [#/Vol]Ordere d By: Zaina Leigh on 08-28-2023 RBC (Bld) [#/Vol] 3.88 10*6/uL 3.60-5.00 [facility] Renal Function Panelon 08-28 Albumin [Mass/Vol] 3.8 g/dL Normal 3.5-5.7 [facility] Comment on above: Order Comment: Reaso n for Exam Chronic kidney disease, stage III (moderate);Quinn hy kid w cr Performed By: #### R ENAL, URIC, MG, [id number] #### [facility] [address] Anion gap [Moles/Vol] 14.1 mmol/L Normal 6.0-15.0 [facility] Comment on above: Order Comment: Reaso n for Exam Chronic kidney disease, stage III (moderate);Quinn hy kid w cr Performed By: #### R ENAL, URIC, MG, [id number] #### [facility] [address] Calcium [Mass/Vol] 9.0 mg/dL Normal 8.6-10.3 [facility] Comment on above: Order Comment: Reaso n for Exam Chronic kidney disease, stage III (moderate);Quinn hy kid w cr Performed By: #### R ENAL, URIC, MG, [id number] #### [facility] [address] [place] [address] [place] Chloride [Moles/Vol] 107 mmol/L Normal 98-107 [facility] Comment on above: Order Comment: Reaso n for Exam Chronic kidney disease, stage III (moderate);Quinn hy kid w cr Performed By: #### R ENAL, URIC, MG, [id number] #### [facility] [address] CO2 [Moles/Vol] 26.7 mmol/L Normal 21.0-31.0 [facility] Comment on above: Order Comment: Reaso n for Exam Chronic kidney disease, stage III (moderate);Quinn hy kid w cr Performed By: #### R ENAL, URIC, MG, [id number] #### [facility] [address] Creatinine [Mass/Vol] 1.05 mg/dL Normal 0.60-1.20 [facility] Comment on above: Order Comment: Reaso n for Exam Chronic kidney disease, stage III (moderate);Quinn hy kid w cr Performed By: #### R ENAL, URIC, MG, [id number] #### [facility] [address] [place] [address] [place] GFR/1.73 sq M.predicted MDRD (S/P/Bld) [Vol rate/Area] 58.600 mL/min/{1.73_m2} [facility] Comment on above: Order Comment: Reaso n for Exam Chronic kidney disease, stage III (moderate);Quinn hy kid w cr Performed By: #### R ENAL, URIC, MG, [id number] #### [facility] [address] [place] [address] Glucose [Mass/Vol] 146 mg/dL High 70-100 [facility] Comment on above: Order Comment: Reaso n for Exam Chronic kidney disease, stage III (moderate);Quinn hy kid w cr Result Comment: [facility] Glucose Reference Range is dependent on time and content of last meal. Glucose of more than 200 mg/dL in a nonstressed, ambulatory subject supports the diagnosis of Diabetes Mellitus. ADA recommended reference range Performed By: #### R ENAL, URIC, MG, [id number] #### [facility] [address] [place] [address] Phosphate [Mass/Vol] 4.6 mg/dL Normal 3.7-7.2 [facility] Comment on above: Order Comment: Reaso n for Exam Chronic kidney disease, stage III (moderate);Quinn hy kid w cr Performed By: #### R ENAL, URIC, MG, [id number] #### [address] Potassium [Moles/Vol] 3.8 mmol/L Normal 3.5-5.1 [facility] Comment on above: Order Comment: Reaso n for Exam Chronic kidney disease, stage III (moderate);Quinn hy kid w cr Performed By: #### R ENAL, URIC, MG, [id number] #### [facility] [address] Sodium [Moles/Vol] 144 mmol/L Normal 136-145 [facility] Comment on above: Order Comment: Reaso n for Exam Chronic kidney disease, stage III (moderate);Quinn hy kid w cr Performed By: #### R ENAL, URIC, MG, [id number] #### [facility] [address] Urea nitrogen [Mass/Vol] 14 mg/dL Normal 7-25 [facility] Comment on above: Order Comment: Reaso n for Exam Chronic kidney disease, stage III (moderate);Quinn hy kid w cr Performed By: #### R ENAL, URIC, MG, [id number] #### [facility] [address] Serum or plasma albumin/glob ulin mass ratioOrdered By: Angela Aldrich on 08-28-2023 Albumin/Globulin [Mass ratio] 1.4 {ratio} [facility] Serum or plasma anion gap de terminationOrdered By: Angela Aldrich on 08-28-2023 Anion gap [Moles/Vol] 13.3 mmol/L 6.0-15.0 [facility] Serum or plasma high density lipoprotein (HDL) cholesterol measurementOrdered By: Angela Aldrich on 08-28-2023 Cholesterol in HDL [Mass/Vol] 33 mg/dL 23-92 [facility] Comment on above: HDL CHOL ATP-III CLA SSIFICATION Cardiovascular RiskHDL > or equal to 60 mg/dL LOWHDL < 40 mg/dL HIGH Serum or plasma total choles terol/high density lipoprotein (HDL) cholesterol mass ratOrdered By: Angela Aldrich on 08-28-2023 Cholesterol.total/Choles terol in HDL [Mass ratio] 4.6 {ratio} <5.0 [facility] Sodium [Moles/volume] in Ser um or PlasmaOrdered By: Angela Aldrich on 08-28-2023 Sodium [Moles/Vol] 144 mmol/L 136-145 [facility] Squamous epithelial cells de tection in urine sediment by light microscopyOrdered By: Zaina Leigh on 08-28-2023 Epithelial cells.squamous LM Ql (Urine sed) 0-1 [HPF] 0-2 [facility] Triglyceride [Mass/volume] i n Serum or PlasmaOrdered By: Angela Aldrich on 08-28-2023 Triglyceride [Mass/Vol] 361 mg/dL 0-149 [facility] Comment on above: TRIG ATP III CLASSIF ICATIONTRIG less than 150 mg/dL NormalTRIG 150-199 mg/dL Borderline highTRIG 200-500 mg/dL High TRIG greater than 500 mg/dL Very highStandard traceable to the Center for Disease Conrtrol and Prevention (CDC) test method. Urate [Mass/volume] in Serum or PlasmaOrdered By: Zaina Leigh on 08-28-2023 Urate [Mass/Vol] 4.3 mg/dL 2.3-6.6 [facility] Urea nitrogen [Mass/volume] in Serum or PlasmaOrdered By: Angela Aldrich on 08-28-2023 Urea nitrogen [Mass/Vol] 14 mg/dL 05-28 [facility] Uric Acidon 08-28-2023 Urate [Mass/Vol] 4.3 mg/dL Normal 2.3-6.6 [facility] Comment on above: Order Comment: Reaso n for Exam Chronic kidney disease, stage III (moderate);Quinn nahed kid w cr Performed By: #### R ENAL, URIC, MG, [id number] #### [facility] [address] Urine Cultureon 08-28-2023 Bacteria identified Cx Nom (U) ORGANISM: Klebsiella pneumoniae (O:KLEPNE) [place] Count >100,000 Aerobic YANG Charge (NMIC56) ----- SUSCEPTIBILITY ---- ORGANISM: O:KLEPNE ANTIBIOTIC INTERPRETATION YANG Amikacin S <16 Amoxacillin/K Clavulanate S <8 Ampicillin/Sulbactam S <4 Aztreonam S <4 Cefazolin S <2 Cefepime S <2 Ceftazidime S <1 Ceftazidime/Avibacta m S <4 Ceftolozane/Tazobact am S <2 Ceftriaxone S <1 Cefuroxime S <4 Ciprofloxacin S <0.25 Ertapenem S <0.5 Gentamicin S <2 Levofloxacin S <0.5 Meropenem S <1 Meropenem/Vaborbacta m S <2 Nitrofurantoin S <32 Piperacillin/Tazobac cohen S <8 Tetracycline S <4 Tigecycline S <2 Tobramycin S <2 Trimethoprim/Sulfame thoxazole S <0.5 S = SUSCEPTIBLE I = INTERMEDIATE R = RESISTANT BLANK = DATA NOT AVAILABLE, OR DRUG NOT ADVISABLE OR TESTED R* = RESISTANCE DUE TO EXTENDED SPECTRUM BETA-LACTAMASES ESBL = EXTENDED SPECTRUM BETA-LACTAMASE TFG = THYMIDINE-DEPENDENT STRAIN DALY = BETA-LACTAMASE POSITIVE IB = INDUCIBLE BETA-LACTAMASE. APPEARS IN PLACE OF 'S' WITH SPECIES KNOWN TO POSSESS INDUCIBLE BETA-LACTAMASES. POTENTIALLY THEY MAY BECOME RESISTANT TO ALL B-LACTAM DRUGS. PERFORMED BY: [place] [id number] PATHOLOGIST [employer]YWALL TAPER HELPER ALEXA BETANCOURT M.D. Normal [facility] Comment on above: Performed By: #### R ENAL, URIC, MG, [id number] #### [facility] [address] [place] [address] Urine appearanceOrdered By: Zaina Leigh on 08-28-2023 Appearance (U) Slightly cloudy Clear [facility] Urine bacteria detection by automated methodOrdered By: Zaina Leigh on 08-28-2023 Bacteria Auto Ql (U) 4+ None Seen [facility] Urine colorOrdered By: Zaina Leigh on 08-28-2023 Color (U) Yellow Yellow [facility] Urine culture routineOrdered By: Zaina Leigh on 08-28-2023 Bacteria identified Cx Nom (U) Klebsiella pneumoniae [facility] Bacteria identified Cx Nom (U) Klebsiella pneumoniae [facility] Urine glucose measurement by automated test strip (mass/volume)Ordered By: Zaina Leigh on 08-28-2023 Glucose Auto test strip (U) [Mass/Vol] >=1000 mg/dL Normal [facility] Urine hemoglobin detection b y automated test stripOrdered By: Zaina Leigh on 08-28-2023 Hemoglobin Auto test strip Ql (U) 1+ Negative [facility] Urine leukocyte esterase det ection by automated test stripOrdered By: Zaina Leigh on 08-28-2023 Leukocyte esterase Auto test strip Ql (U) 2+ Negative [facility] Urine nitrite detection by a utomated test stripOrdered By: Zaina Leigh on 08-28-2023 Nitrite Auto test strip Ql (U) Negative Negative [facility] Urine protein/creatinine rat ioOrdered By: Zaina Leigh on 08-28-2023 Protein/Creatinine (U) [Ratio] 2087 mg/g{Cre} 0-200 [facility] Urobilinogen Auto test strip (U) [Mass/Vol]Ordered By: Zaina Leigh on 08-28-2023 Urobilinogen (U) [Mass/Vol] Normal mg/dL Normal [facility] Vitamin B12on 08-28-2023 Cobalamin (Vitamin B12) [Mass/Vol] 839 pg/mL Normal [address] [place] [address] Comment on above: Result Comment: PERF ORMED BY: [place] [id number] PATHOLOGIST [employer] HELPER ALEXA BETANCOURT M.D. Performed By: #### R ENAL, URIC, MG, [id number] #### [facility] [address] Vitamin B12 ser/plasOrdered By: Zoila Jiménez on 08-28-2023 Cobalamin (Vitamin B12) [Mass/Vol] 839 pg/mL 180-4 [facility] Vitamin D 25 Hydroxy Totalon 08-28-2023 Vitamin D 25 Hydroxy Total 14.3 ng/mL Low 30-100 [facility] Comment on above: Order Comment: Reaso n for Exam Chronic kidney disease, stage III (moderate);Quinn hy kid w cr Result Comment: ALBIN MIN D STATUS 25(OH)VITAMIN D RANGE (ng/mL) Deficient <20 Insufficient 20 to <30 Sufficient 30 to 100 Reference: Nubia Holley, Thom MARTINEZ, et al. Evaluation,treatment, and prevention of vitamin D deficiency; an Endocrine Society clinical practice guideline. JCEM. 2010; 96(7):1911-30. PERFORMED BY: [facility] [address] [place] [address] PATHOLOGIST [employer] HELPER ALEXA BETANCOURT M.D. Performed By: #### R ENAL, URIC, MG, [id number] #### [address] Vitamin D+Metabolites [Mass/ volume] in Serum or PlasmaOrdered By: Zaina Leigh on 08-28-2023 Vitamin D+Metabolites [Mass/Vol] 14.3 ng/mL 30-100 [facility] Comment on above: VITAMIN D STATUS 25( [place])VITAMIN D RANGE (ng/mL) Deficient <20 Insufficient 20 to <30Sufficient 30 to 100Reference: Nubia Holley, Thom MARTINEZ, et al. Evaluation,treatment, and prevention of vitamin D deficiency; an Endocrine Society clinical practice guideline. JCEM. 2010; 96(7):1911-30. pH Auto test strip (U)Ordere d By: Zaina Leigh on 08-28-2023 pH (U) 1.015 [pH] 1.001-1.030 [facility] pH (U) 5.5 [pH] 5.0-9.0 [facility] A1C HEMOGLOBINon 08-06-2023 HbA1c (Bld) [Mass fraction] 6.7 % 79 Group Other Glucose - FINGER STICKon Glucose [Mass/Vol] 188 mg/dL 79 Group Other HbA1c (Bld) [Mass fraction]o n 08-06-2023 A1C HEMOGLOBIN [employer] Other A1C HEMOGLOBINon 04-30-2023 HbA1c (Bld) [Mass fraction] 6.6 % 79 Group Other Glucose - FINGER STICKon Glucose [Mass/Vol] 200 mg/dL 79 Group Other HbA1c (Bld) [Mass fraction]o n 04-30-2023 A1C HEMOGLOBIN SERPs Other LIPID PROFILEon 03-01-2023 CHOL-HDL RATIO NORM SEE BELOW Normal [facility] Comment on above: Result Comment: 3.3 - 4.4 LOW RISK 4.4 - 7.1 AVERAGE RISK 7.1 - 11.0 MODERATE RISK >11.0 HIGH RISK Performed By: #### B MP, ALT, AST, LIPID #### [facility] [address] [place] [address] Dr. Ann Marie Hanson Cholesterol [Mass/Vol] 92 mg/dL Normal <=200 [facility] Comment on above: Performed By: #### B MP, ALT, AST, LIPID #### [facility] [address] [address] [address] Ann Marie Hanson Cholesterol in HDL [Mass/Vol] 26 mg/dL Critically low 40-60 [facility] Comment on above: Performed By: #### B MP, ALT, AST, LIPID #### [facility] [address] [place] [address] Dr. Ann Marie Hanson Cholesterol in LDL [Mass/Vol] 11.6 mg/dL Normal [facility] Comment on above: Performed By: #### B MP, ALT, AST, LIPID #### [facility] [address] [address] [address] Ann Marie Hanson Cholesterol.total/Choles terol in HDL [Mass ratio] 3.5 {ratio} Normal [facility] Comment on above: Performed By: #### B MP, ALT, AST, LIPID #### [facility] [address] [place] [address] Dr. Ann Marie Hanson HDL NORMAL > or = 60 mg/dl - LOW CARDIOVASCULAR RISK <40 mg/dl - HIGH CARDIOVASCULAR RISK Normal [facility] Comment on above: Performed By: #### B MP, ALT, AST, LIPID #### [facility] [address] [address] [address] Ann Marie Hanson LDL CALC NORMAL SEE BELOW Normal [facility] Comment on above: Result Comment: <100 mg/dl OPTIMAL 100 - 129 mg/dl NEAR OR ABOVE OPTIMAL 130 - 159 mg/dl BORDERLINE HIGH 160 - 189 mg/dl HIGH >190 mg/dl VERY HIGH Performed By: #### B MP, ALT, AST, LIPID #### [facility] [address] [address] [address] Ann Marie Hanson Triglyceride [Mass/Vol] 272 mg/dL Critically high <=150 [facility] Comment on above: Performed By: #### B MP, ALT, AST, LIPID #### [facility] [address] [address] [address] Ann Marie Hanson VLDL CALC 54.4 mg/dL Normal [facility] Comment on above: Performed By: #### B MP, ALT, AST, LIPID #### [facility] [address] [address] [address] Ann Marie Hanson PROF CHEM 8 (BAS METB)on Anion gap [Moles/Vol] 17.1 mmol/L Normal [facility] Comment on above: Performed By: #### B MP, ALT, AST, LIPID #### [facility] [address] [place] [address] Dr. Ann Marie Hanson Calcium [Mass/Vol] 9.1 mg/dL Normal 8.5-10.1 [facility] Comment on above: Performed By: #### B MP, ALT, AST, LIPID #### [facility] [address] [place] [address] Dr. Ann Marie Hanson Chloride [Moles/Vol] 105 mmol/L Normal 98-107 [facility] Comment on above: Performed By: #### B MP, ALT, AST, LIPID #### [facility] [address] [place] [address] Dr. Ann Marie Hanson CO2 [Moles/Vol] 24.7 mmol/L Normal 21.0-32.0 [facility] Comment on above: Performed By: #### B MP, ALT, AST, LIPID #### [facility] [address] [place] [address] Dr. Ann Marie Hanson Creatinine [Mass/Vol] 1.17 mg/dL Critically high 0.55-1.02 [facility] Comment on above: Performed By: #### B MP, ALT, AST, LIPID #### [facility] [address] [place] [address] Dr. Ann Marie Hanson EGFR-AF GUAMANIAN 56 mL/min/1.73m2 Critically low >=60 [facility] Comment on above: Performed By: #### B MP, ALT, AST, LIPID #### [facility] [address] [place] [address] Dr. Ann Marie Hanson EGFR-NON AF GUAMANIAN 46 mL/min/1.73m2 Critically low >=60 [facility] Comment on above: Performed By: #### B MP, ALT, AST, LIPID #### [facility] [address] [place] [address] Dr. Ann Marie Hanson Glucose [Mass/Vol] 120 mg/dL Critically high 74-106 T [facility] Comment on above: Performed By: #### B MP, ALT, AST, LIPID #### [facility] [address] [place] [address] Dr. Ann Marie Hanson Potassium [Moles/Vol] 3.8 mmol/L Normal 3.5-5.1 [facility] Comment on above: Performed By: #### B MP, ALT, AST, LIPID #### [facility] [address] [place] [address] Dr. Ann Marie Hanson Sodium [Moles/Vol] 143 mmol/L Normal 136-145 [facility] Comment on above: Performed By: #### B MP, ALT, AST, LIPID #### [facility] [address] [place] [address] Dr. Ann Marie Hanson Urea nitrogen [Mass/Vol] 14.0 mg/dL Normal 7.0-18.0 [facility] Comment on above: Performed By: #### B MP, ALT, AST, LIPID #### [facility] [address] [place] [address] Dr. Ann Marie Hanson Urea nitrogen/Creatinine [Mass ratio] 12.0 mg/mg Normal [facility] Comment on above: Performed By: #### B MP, ALT, AST, LIPID #### [facility] [address] [address] [address] Ann Marie Hanson SGOTon 03-01-2023 AST [Catalytic activity/Vol] 19 U/L Normal 15-37 [facility] Comment on above: Performed By: #### B MP, ALT, AST, LIPID #### [facility] [address] [address] [address] Ann Marie Hanson SGPTon 03-01-2023 ALT [Catalytic activity/Vol] 32 U/L Normal 14-59 [facility] Comment on above: Performed By: #### B MP, ALT, AST, LIPID #### [facility] [address] [address] [address] Ann Marie Hanson MR head/brain wo/w conon MR head/brain wo/w con [facility] [place] [place] [address] MRI Report Signed Patient: Elizabeth Manrique MR#: [id number] : 1955 Acct:[id number] Age/Sex: 67 / F ADM Date: 02/20/23 Loc: MR Room: Type: [facility] Attending Dr: Zoila LOVETT Copies to: BONY Kimbrough Ordering Provider: BONY Kimbrough Date of Service: 02/20/23 MR/MR head/brain wo/w con: G43.909, R41.3, R42 MR head/brain wo/w con 02/20/2023 10:59 AM SIGN AND SYMPTOMS: Chronic migraines associated with nausea, recent memory loss for one month PROTOCOL: Multiplanar multisequence MR images of the brain were obtained without IV contrast. CONTRAST: 15 mL of intravenous ProHance COMPARISON: Noncontrast CT 02/11/2017. FINDINGS: Extra axial spaces: There is a 10 mm enhancing extra-axial lesion appears to be dural-based over the right frontal convexity representing a small meningioma. There is mild diffuse age-related cortical atrophy. Hemorrhage: None. Ventricular system: Within normal limits. Basal cisterns: Within normal limits and not effaced. Cerebral parenchyma: There are areas of T2 and T2 FLAIR hyperintense signal in the subcortical and periventricular white matter. Midline shift: None.. Cerebellum: Within normal limits. Brainstem: T2 and T2 FLAIR hyperintense signal is noted in the pontine white matter. OTHER: Calvarium: Normal marrow signal. Vascular system: Satisfactory flow voids within the anterior and posterior circulation. Visualized Paranasal sinuses: Within normal limits. Visualized Orbits: Within normal limits. Visualized upper cervical spine: Within normal limits. Sella and skull base: Within normal limits. MR/MR head/brain wo/w con IMPRESSION: There is a 10 mm enhancing extra-axial lesion appears to be dural-based over the right frontal convexity representing a small meningioma. This is unchanged. There are areas of T2 and T2 FLAIR hyperintense signal in the subcortical and periventricular white matter as well as the pontine white matter. There is mild diffuse age-related cortical atrophy. Impression dictated by: Orlando Melton M.D.02/20/2023 4:18 PM Dictation Location: [place] [address] Transcribed By: [facility] 02/20/23 1618 Dictated By: Orlando Melton II, MD 02/20/23 1608 Signed By: 02/20/23 1618 Normal [facility] Thyroid Stimulating Hormoneo n 02-20-2023 TSH Qn 1.47 m[IU]/L Normal 0.45-5.33 [facility] Comment on above: Result Comment: PERF ORMED BY: [place] [id number] PATHOLOGIST [employer] HELPER ALEXA BETANCOURT M.D. Performed By: #### B 12, TSH3 #### [facility] [address] [place] [address] Vitamin B12on 02-20-2023 Cobalamin (Vitamin B12) [Mass/Vol] 152 pg/mL Low 180-914 [facility] Comment on above: Performed By: #### B 12, TSH3 #### [address] A1C HEMOGLOBINon 01-22-2023 HbA1c (Bld) [Mass fraction] 6.5 % 79 Group Other Glucose - FINGER STICKon Glucose [Mass/Vol] 216 mg/dL 79 Group Other HbA1c (Bld) [Mass fraction]o n 01-22-2023 A1C HEMOGLOBIN [facility] happin! Other Coding Summary.on 11-16-2022 Coding Summary. [id number] Gh0bWw+PGhlYWQ+PE1FV CNrX51uxYCebP6LI0sCB P6COCTOPAHKYV1WPI1yi GA2WIsqF5YsvlDh FtztnJTsTV68KCw6UML8 zXugWDzkaA8luFOhE9e5 DfFrAK56cA76AHluQEEw QsC8EvVoxcrwyDVa F5pjBhBisHQzBhc+PHRh YmxlIHdpZHRoPScxMDAl IkTvgOvmIE3eIs5qNSSo LWNvbGxhcHNlOiBj q1wzYYJrIPokJH1eoFlx A2IoxPX2DTZxa3h1Lz89 dHI+VGDkXHL6pZhrJPdx z360QzCcl3zsKAZ4 oMYcSWlxLNK4F70vy6E0 USBjUWRpODT6wPK4aO7o hHrtgwlfA5HtnLGfHmI5 OIW7mNOurG0hkDop zdfrpN2mRbm+J45KFI7B DGSADD3SQdt4M5GiWfnr dHI+XW45HIDoQK54wJYl iNEqp9sxqEd1NvZm IDTdTDN4oOhbWZlbx9Yu MUWrP63xmMPlg0N4FJGh iDqitRDpAoXieNU3pZ8d SOwaknmkd7tqocrs Sskyk6kuim40yI51K69x LYmzLZQiTND9IEIyFINc cHarlt8asY3bQf1+IDxj x6kra1ijpOe7FyZx YRVaanCpmRrnAVY7v5Zs Pw31Y3MtfXktg5NeVfs9 fl50zSAvu5L0dEM8YAxx APMawE9mXFqcVbE8 DLAnVvRywW52iRDoZYie Xq2uqMscmAuzJG9qURFl zfynKQOxwR2dHHAbjEFw lJgjQB1cVFPendbo b208YbLlTOG6TBZmcIKb K6CovY1iZnOkOWSzJRUh K8EogCXfOPhnP773FBvu PyT1NAOfqcBbW0Ct BJBsqHzqSmI2d2A0Ai2L f4HguemlJNB5UEjmDRIf IiYwDyJvXrR0X8AeSla2 SQFpbCkiZT6sQ5Ua SLUozsztynzimQW8SZVw GRKngG80rFLuKIebVa1m v3H5u281CEClXGIuzX99 Bp2pfDytJDGopOEV bI0tntdph4fonznnBdJe QRCiUFj0QSj1RAQuoUgu XwKiDYL8MqD7NRH0fVUz dD6nxScsbxyfrK1d Oyc+S95dkJ5jDPQ5OKY4 lsozJOKdpkVlLB37XJ77 I5LsLadjuSLczHW+PGRp fcXfuBsjQY5uCdCr k3yhq5XuNCzcQ1OqZNHg WGteUnp5FORmTXQ9yDL3 oV6gJVVcTVgsj3C9fCW3 A0AuuvYuli4pv1ai MVTiWCgnH54jvNGtc0M2 XJXjlGD0LZPjtIrcVwZt qR45Trz+UEPmpHnpn2Hk Izsfx2icw5fthXj9 IjMwJSIgdmFsaWduPSJ0 s0CkPi61Y39xAFqgNVVf TNOlGARxTHDffGpikp0h pJ5uEn9+PGNvbCB3 kZK5gI6gSZOlNeH1ZJsw H392TcWmgZFwGcdvn6oo i4akrJo1AdStVEVzqySk nJogELY9e8ZoYu44 B92zEVzoJECgKAVmBTNn UNWgoJciss5uoK8wBu2+ YG4gz9hlfg05rV40jXR+ NKVgAME4fWihHDfi PCHeyS3kGOvwLxF0QQYo KvHepK96xREhAVfaUo2n sXtjsBgnHU2bNAGueyhx m832NdLfj8jrBBBd qQTfANuxJIN1F02uh9L2 TDXsMCMeALI1fTJ1hX1b bGlnbjogbGVmdDsgdmVy pKftOEmwOMaxT048 IHRvcDsnPlBhdGllbnQg DvZdCOk0P0NnIvf9YRCh jCvlEJ4abNEqHRdaXw0d aVaikNcvKX2zUFHo ryxcf705WsTif2ytTPIj mYRrQPqrUVQ2H08yq2Q8 KIRiGPDiFLG1aCE6xP2h bGlnbjogbGVmdDsg zmUvtJyaVUgcFKlvZ958 IHRvcDsnPkJpcnRoIERh nZF7ZD82MK22aPDuf9W1 dHX9F1UjMCZihmcs umwwrGC6FABgZWFqmS39 Ik7phLayDk2fCFOvREB7 AVPlwCQsY7BwrX9jRaIw PQJjGGHfG4ZpvGCl DCmmU124RUcnNmQ6RTVr woAsE7GiNSJgjVszJuW0 q8O9Jg5QO7D1FF07NZ68 oOTbe0B1aJL6C2Ju VXQakkwhnhbksAN9DBHo VSJwaZ26Qm7ivFalDh3j ICLkSFR7UVUpyGGnN2Zl fL3gOkGoXDLoSNSh Z4TudAJeJNtmI823RAft OqP2PWScqhSoA4YfYBSg pVotSiF7x8F9Jv4XHBz5 ER16GL93iLXlg0W5 dUF8Y0RhZWBhecmxigdl sIZ6TLLfPLUxwS49Pl4z zKgrGx2vCRMjUAF1DREw sGZuF3AgmU6pMlGg VVUuRGEcX5SnrQBqKSiu N973BAldPzN4QMOqhaLq C1BuFPKteFkgOuM8n2G4 Ts6IRKCcOQ26FAI8 oVB2JO19FT68M3VhFybp dGFibGU+PHRhYmxlIHdp ZHRoPScxMDAlJyBzdHls SZ9tBs3pKPKnPQMk bGriuBXyUhVmp7noYJLi HLpmWH1ikYzcI0FbxAX8 MHMhr3i1Ev18N69sG2Hc dXA+LZIggDT5pXJ3 rA7lToCfArY8PKcnQ104 NlEizXXhMfbbv8srt0sh cQu1UhS1VNScazAznCfv ZFO1j9KvIr55A15x IHdpZHRoPSIxNSUiIHZh qUectz1qzC9iOh2+PGNv lKB8xMJ0fB1vKkRwYsC2 XOhiK838YgNtzYZq Qurlc6jwl9xuvBo3ViOc DPVulbLzgPsrJHD4j0Iu Eu07Y9ArtMhdg3EeCdt4 zw27lOFsa1G0dKH5 K2XtTQJqfrxvtUGzfTub JU9nHBLelpfqQFLyxO6w QGRhU8p0GeNjAdM0ORjn U8XypvG0BQRhoFUj XChdRNI8G50uy5I1ZVPb EGPkJQT5hXQ7iD3nnZcw bjogbGVmdDsgdmVydGlj LUqyXSgkB713ZBOy xIksETDizK0mCPHlwQMl pPncQX5hJLJyvfwyVwiX QArJGeMfKYAOBbH4A4Lq Acx4LBHbcCvvSI9d tZDwHJfaWm6ogVxgoXqh OM1uQWRtrcoiLIJchA8y XWUetHQdiFulSJ1aMUVg idtgp198UeAyYUS1 ZRExgWBgB7QuiO0pScPx SWYtQPOdO6MfdSHzNZji C582FYunMjH1DLBtjjQj G5VwBNCmiGmuIsS0 b5H8Xu4aRz5dEu4cANS1 CP81AK15kRNvb2C7tEA1 W5ZfQMLfnlqmzotkoVM1 EJBtRHZenR12bYYk QXaoLv0uj9A0i036ASBm JBNmlT49Ju6gpUbzJBQn dODIhA2ylbzrl9pozscp QjHlYSLjFYc5ZBw5 AVAudUbgToHvVDP0IxE5 YPV1hFYvwF2nbHwwwrlr fY7bMqx+NjUgWWVhcnM8 S7PqHov5DMWsxNrv MZ2qiQPpVGlrXi3rxKmh lSxjYE9xJRBoohgqKWYz xU0jJBFifRQlzOclWC1i CSZkcydgu790VpBa NQM6GGJokKZgG8BtyJ2n VgGqVEDmDPYxT6DacTUe AMpcA095SWthAzL3TSZu amUlQ1JpHKHgjOrk EoV0v0D4Ky5ZFT6hgIX6 I8XwQak3MKNsyXvrQF7a gCGqJIngGz0rcRxvsCgm XO4sXYExsfwnARMb tP7nJMBjaYRhpWpgGU2b JDEnhcrhd127RuRwXYJ3 YDNzrAGlX0JzvB1nQqXl LCSvMHWgS2TgeKGi KGdeP194EIhkUdG1XWGr azQeF4XfTFLrwSanAyA5 v7V2Xt3WJPYtCDAhdNRg EjV4E0YiRdsljXM+ GJ13ZTSpPW53kCSmyAKg b2uglCw1SbOsOCHpPLZ4 eFgxTSxhs2ZvWFNmZ55q pIRbl5Z7ALMwpMlg kBPmPdTtyXH5jP9eLSms sfjlj8gpnsdzYjbjm5km ko76yA79U08dZDauLXDg PSIzMCUiIHZhbGln ou7syC4sCh6+PGNvbCB3 gPA8dQ7uJrKpWwN8VJiu Y203TyHfvDRzVezgu6lk x5agvJj2XtCpKMEn ytNciYmzQOP4y0VpKa18 Y71kKDokSSOsGEIuLRGg SEXdiNaezm7qmP4iFq3+ KF2sf8izjo50iU50 dHI+AVXrTSX5hTfuAFcg MOYohZ2mQDmwYyN4GWOk NaDssJ66eVFnGKscLj6v sEpqkBgaCZ9oFJJj okklt133MhTbl0bnBOWz iXEzWNnyBTM4Q17lr5E5 ABIuCYHzAPX4mOM4gW0y bGlnbjogbGVmdDsg bpQofJznWGmyDAofP196 FUEnfZfdZvUwvDVpY5kj uaXRYD3qKgwqyMA+PHRk KVX4gMlzKEgpNXLj vG2wCFInA5f7CjDtXpK9 CWamK4TyvmV7FLKnqMPt MXYtzDADkY9ohsdnv2oo cjogIzAwMDAwMDt0 JJo0DVBqwIcjQhRnZYV3 NqZ2WWM8bIQcgJ2lyUbh lofnkP1rSsw+RklOOjwv dGQ+JFPhOUM7uHve GCqaAWGfaN3sQUOaR6u4 MjOwYeT2UWvtN3YratR5 RHCruHLhAIBqrGPQaR7o euoxb5tdmikrMlWd WSQzSOx0WXy7TPAoqMac FxKaOLO9PaE8GUM4oZIc pN0ncDdxpwziaI1wRdy+ TVJOOjwvdGQ+PHRk AUK2oCjpIPczCGTaxT6i SROrD8g2VtPgSlY0FNwb H3DgmmU8VUZmqRGbIFVz dDSVsR0iajhlu9pt yrcbVtRlFDXiRUe0IHf6 HRMgeVlvKpSlBPD1PgT2 TUV8kUIobV6zkYfqfrov xH7sOby+POS4CIU6 XP52SG24K8ImZesjgGDk bGU+PHRhYmxlIHdpZHRo MWdlQVPiGzKloLinKE8a Us6sFQNbIEFipZzk cHNl (more content not included)... Normal [facility] Urinalysison 11-16-2022 Bacteria LM Ql (Urine sed) TRACE Normal Trace [facility] Comment on above: Order Comment: drop off-- do not cancel pms 11/15/2022 20:55:30 EST Performed By: #### 1 [id number] ####[facility] [address] [place] [address] Bilirubin Ql (U) Negative Normal Negative [facility] Comment on above: Order Comment: drop off-- do not cancel pms 11/15/2022 20:55:30 EST Performed By: #### 1 [id number] ####[facility] [address] [place] [address] Clarity (U) CLEAR Normal Clear [facility] Comment on above: Order Comment: drop off-- do not cancel pms 11/15/2022 20:55:30 EST Performed By: #### 1 [id number] ####[facility] [address] [place] [address] Color (U) YELLOW Normal Yellow [facility] Comment on above: Order Comment: drop off-- do not cancel pms 11/15/2022 20:55:30 EST Performed By: #### 1 [id number] ####[facility] [address] [place] [address] Epithelial cells.squamous LM.HPF (Urine sed) [#/Area] 5-8 Normal 0-2 [facility] Comment on above: Order Comment: drop off-- do not cancel pms 11/15/2022 20:55:30 EST Performed By: #### 1 [id number] ####[facility] [address] [place] [address] Glucose Test strip (U) [Mass/Vol] 3+ Abnormal Negative [facility] Comment on above: Order Comment: drop off-- do not cancel pms 11/15/2022 20:55:30 EST Performed By: #### 1 [id number] ####[facility] [address] [place] [address] Hemoglobin Ql (U) TRACE Abnormal Negative [facility] Comment on above: Order Comment: drop off-- do not cancel pms 11/15/2022 20:55:30 EST Performed By: #### 1 [id number] ####[facility] [address] [place] [address] Ketones (U) [Mass/Vol] Negative Normal Negative [facility] Comment on above: Order Comment: drop off-- do not cancel pms 11/15/2022 20:55:30 EST Performed By: #### 1 [id number] ####[facility] [address] [place] [address] [place].plasma/[place].R BC (Bld) [Mass ratio] 0-3 Normal 0-3 [facility] Comment on above: Order Comment: drop off-- do not cancel pms 11/15/2022 20:55:30 EST Performed By: #### 1 [id number] ####[facility] [address] [place] [address] Nitrite Ql (U) Negative Normal Negative [facility] Comment on above: Order Comment: drop off-- do not cancel pms 11/15/2022 20:55:30 EST Performed By: #### 1 [id number] ####[address] [address] pH (U) 5.5 [pH] Invalid Interpretation Code 5.0-9.0 [facility] Comment on above: Order Comment: drop off-- do not cancel pms 11/15/2022 20:55:30 EST Performed By: #### 1 [id number] ####[address] [address] Protein (U) [Mass/Vol] Negative Normal Negative [facility] Comment on above: Order Comment: drop off-- do not cancel pms 11/15/2022 20:55:30 EST Performed By: #### 1 [id number] ####[address] [address] Specific gravity (U) [Rel density] 1.010 Invalid Interpretation Code 1.005-1.030 [facility] Comment on above: Order Comment: drop off-- do not cancel pms 11/15/2022 20:55:30 EST Performed By: #### 1 [id number] ####[address] [address] Type of Urine collection method Random Urine Normal [facility] Comment on above: Order Comment: drop off-- do not cancel pms 11/15/2022 20:55:30 EST Performed By: #### 1 [id number] ####[address] [address] Urobilinogen Qn (U) 0.2 {Omi'U}/dL Normal 0.0-1.0 [facility] Comment on above: Order Comment: drop off-- do not cancel pms 11/15/2022 20:55:30 EST Performed By: #### 1 [id number] ####[address] [address] WBC Auto Ql (U) Negative Normal Negative [facility] Comment on above: Order Comment: drop off-- do not cancel pms 11/15/2022 20:55:30 EST Performed By: #### 1 [id number] ####[facility] [address] [place] [address] WBC LM.HPF (Urine sed) [#/Area] 0-5 Normal 0-5 [facility] Comment on above: Order Comment: drop off-- do not cancel pms 11/15/2022 20:55:30 EST Performed By: #### 1 [id number] ####[facility] [address] [place] [address] Ambulatory Visit Summaryon 0 11-15-2022 Ambulatory Visit Summary ELIZABETH MANRIQUE :1955 Visit Date:11/15/2022 Ambulatory Visit Instructions Your Diagnosis Microhematuria Proteinuria Flank pain Tests Performed Urnls Dip Stick Auto w/o Microscopy POC [address] Your Care Team Attending Physician - LEANDRA TO PA-C Primary Care Physician - KATHRINE GUSTAFSON DO This Is Your Medications List Contact prescribing physician if questions or concerns Misc Prescription (POT CHLORIDE 10MEQ ER TAB) acetaminophen (Tylenol 325 mg oral capsule) albuterol albuterol (albuterol CFC free 90 mcg/inh inhalation aerosol) atorvastatin (atorvastatin 80 mg Tab) carvedilol (carvedilol 3.125 mg Tab) clopidogrel (clopidogrel 75 mg Tab) digoxin (digoxin 125 mcg (0.125 mg) Tab) diphenhydrAMINE (diphenhydrAMINE 12.5 mg oral tablet, chewable) empagliflozin (Jardiance 25 mg oral tablet) erenumab (Aimovig SureClick) ergocalciferol (Vitamin D) fluticasone-vilanter ol (Breo Ellipta) furosemide (furosemide 20 mg Tab) guaifenesin (Mucinex) insulin glargine (Lantus) insulin glulisine (Apidra) midodrine nitroglycerin (Nitro 0.4 mg Tab) omega-3 polyunsaturated fatty acids (EPA Fish Oil 1000 mg oral capsule) omeprazole (omeprazole 20 mg Cap-DR) ranolazine (Ranexa 500 mg Tab-ER) tiotropium (Spiriva Respimat 1.25 mcg/inh inhalation aerosol) topiramate (topiramate 100 mg Tab) Procedures Performed Appendectomy, Bowel, Carpal tunnel release, Cataract, Hysterectomy, Tonsillectomy, Triple coronary bypass. Discharge Vitals Heart Rate (Peripheral) 69 Blood Pressure 138/70 Height 160 cm Height 63 in Weight 80 kg Weight 176 lb BMI 31.25 What to do next Scheduled Follow-Up Appointments 2023 2:00 PM EST With: LEANDRA TO PA-C Where: [facility] Patient Educationon 11-15-19 Patient Education Nephrology Proteinuria Proteinuria is when there is too much protein in the urine. Proteins are important for building muscles and bones. Proteins are also needed to fight infections, help the blood to clot, and keep body fluids in balance. Proteinuria may be mild and temporary, or it may be an early sign of kidney disease. The kidneys make urine. Healthy kidneys also keep substances like proteins from leaving the blood and ending up in the urine. What are the causes? This condition may be caused by damage to the kidneys or by temporary causes such as fever or stress. Proteinuria may happen when the kidneys are not working well. Healthy kidneys have filters (glomeruli) that keep proteins out of the urine. Proteinuria may mean that the glomeruli are damaged. The main causes of this type of damage are: ? Diabetes. ? High blood pressure. Other causes of kidney damage can also cause proteinuria, such as: ? Diseases of the immune system, such as lupus, rheumatoid arthritis, sarcoidosis, and Goodpasture syndrome. ? Heart disease or heart failure. ? Kidney infection. ? Certain cancers, including kidney cancer, lymphoma, leukemia, and multiple myeloma. ? Amyloidosis. This is a disease that causes abnormal proteins to build up in body tissues. ? Reactions to certain medicines, such as NSAIDs. ? Injuries or poisons (toxins). ? High blood pressure that occurs during (preeclampsia and eclampsia). Temporary proteinuria may result from conditions that put stress on the kidneys. These conditions usually do not cause kidney damage. They include: ? Fever. ? Exposure to cold or heat. ? Emotional or physical stress. ? Extreme exercise. ? Standing for long periods of time. What increases the risk? You are more likely to develop this condition if you: ? Have diabetes. ? Have high blood pressure. ? Have heart disease or heart failure. ? Have an immune disease, cancer, or other disease that affects the kidneys. ? Have a family history of kidney disease. ? Are 65 years of age or older. ? Are overweight. ? Are of , , /, or descent. ? Are . ? Have an infection. What are the signs or symptoms? Mild proteinuria may not cause symptoms. As more proteins enter the urine, symptoms of kidney disease may develop, such as: ? Foamy urine. ? Swelling of the face, abdomen, hands, legs, or feet (edema). ? Needing to urinate frequently. ? Fatigue. ? Difficulty sleeping. ? Dry and itchy skin. ? Nausea and vomiting. ? Muscle cramps. ? Shortness of breath. How is this diagnosed? This condition may be diagnosed with a urine test. You may have this test as part of a routine physical exam or because you have symptoms of kidney disease or risk factors for kidney disease. You may also have: ? Blood tests to measure the level of a certain substance (creatinine) that increases with kidney disease. ? Imaging tests of your kidney, such as a CT scan or an ultrasound, to look for signs of kidney damage. How is this treated? If your proteinuria is mild or temporary, treatment may not be needed for this condition. Your health care provider may show you how to monitor the level of protein in your urine at home. Identifying proteinuria early is important so that the cause of the condition can be treated. Treatment for this condition depends on the cause of your proteinuria. Treatment may include: ? Making diet and lifestyle changes. ? Getting blood pressure under control. ? Getting blood sugar under control, if you have diabetes. ? Managing any other medical conditions you have that affect your kidneys. ? Giving , if you are . ? Avoiding medicines that damage your kidneys. In severe cases, kidney disease may need to be treated with medicines or dialysis. Follow these instructions at home: Activity ? Return to your normal activities as told by your health care provider. Ask your health care provider what activities are safe for you. ? Ask your health care provider to recommend an exercise program. General instructions ? Check your protein levels at home if directed by your health care provider. ? Follow instructions from your health care provider about eating or drinking restrictions. ? If you are overweight, ask your health care provider about diets that can help you get to a healthy weight. ? Take ttnu-xcn-jmhoqri and prescription medicines only as told by your health care provider. ? Keep all follow-up visits as told by your health care provider. This is important. Contact a health care provider if: ? You have new symptoms. ? Your symptoms get worse or do not improve. Get help right away if you: ? Have back pain. ? Have diarrhea. ? Vomit. ? Have a fever. ? Have a rash. Summary ? Proteinuria is when there is too much protein in the urine. ? Proteinuria may be mild and tempo (more content not included)... Normal [facility] Urology Office/Clinic Noteon 11-15-2022 Urology Office/Clinic Note Chief Complaint 3 month follow up HPI Staff Pt is here today for 3 month follow up. Previous DX: proteinuria, recurrent UTI. Dysuria: denies pain and burning Incomplete bladder emptying: sometimes Hematuria: denies visible blood Frequency: every couple hours Urgency: yes Nocturia: sometimes once at night Stream: denies hesitancy, start stop stream Leaking: denies Post void dripping: denies Wearing pads/ Depends: denies Urge incontinence: denies Stress incontinence: a little bit Incontinence without Sensory Awareness: denies Abdominal pain: denies Flank pain: sometimes bilateral pain Sexual complaints: denies History of Present Illness staff HPI reviewed and agree. Review of Systems PHQ Score Initial Depression Screen Score: 6 Detailed Depression Screen Score: 6 Total Depression Screen Score: 12 no fever, chills, malaise, myalgia. no rash/lesions. no chest pain, palpitations, or SOB. no abdominal pain, nausea, vomiting. no unilateral calf swelling, redness, pain Physical Exam Vitals & Measurements HR: 69(Peripheral) BP: 138/70 HT: 63 in HT: 160 cm WT: 80 kg WT: 176 lb BMI: 31.25 General: nontoxic, NAD Mouth: moist mucosa Lungs: normal respiratory effort Cardio: regular rate, good distal perfusion Abdomen: nondistended, no suprapubic distention or tenderness, no CVA tenderness Neurologic: Grossly normal Skin: No rashes or suspicious lesions Assessment/Plan 1. Microhematuria (R31.29: Other microscopic hematuria) UA today shows small blood. Last micro done 08/23/22 showed RBC 0-3, no infection. We will send today's UA for a repeat micro.No action needed if 0-3RBCs. pt aware that if shows significant microhematuria then we will need to discuss a hematuria work-up. Pt denies gross hematuria. She is aware to monitor for any gross hematuria and if she develops any visible gross blood or blood clots she is to contact our office. 2. Proteinuria (R80.9: Proteinuria, unspecified) UA today shows trace protein. has CKD stage [address] Leigh regularly. 3. Flank pain (R10.9: Unspecified abdominal pain) Pt stated she sometimes have bilateral flank pain every once in awhile. Pt stated the ABX that our office started pt on at last office encounter improved her sx of the flank pain and dysuria. Advised pt that if the sx of dysuria and flank pain returns to contact our office so that we can start pt on another course of ABX. Explained to pt that if these sx continue to reoccur then we would initiate a further workup to check for inflammation, kidney stones etc. Suggested with pt that she can f/u with our office in 6 months or a year, and she decided she would like to f/u in a year. Pt knows that if she encounters any infections, complications prior to next appointment she can always contact our office. 4. UTI (urinary tract infection) (N39.0: Urinary tract infection, site not specified) Had dysuria, suprapubic pain, bilat flank pain. Cx was neg but sx markedly improved w 1 week Keflex. had a second UTI earlier in 2021. Pt wanted to know if her diabetes medication Jardiance puts her at risk of UTI's. Pt stated that she has been taking Jardiance for years and January of 2022 was her first time having a UTI. Explained to pt that Jardiance can put a pt at risk of infections. However, since her diabetes is under good control on this medication and she's only had 1-2 UTIs so far (hard to say if the last one was or wasn't since cx neg but everything else consistent w UTIs) she can just stay on it for now. Advised pt that if she starts to have more infections, then considering switching therapies would be recommended. Pt advised to call office in future if develops UTI sx and we will either get her in for an appt (if available) Follow-up With When Contact Information XOCHITL PALEANDRA Hawkins, URL Within 1 year [address] [place] [address] Additional Instructions: Patient Education Proteinuria I, Ayanna Varma, personally scribed for Leandra To PA-C on 11/15/2022 15:48:18. . Documentation recorded by the scribdivine Varma accurately reflects the services(s) I performed and decisions made by me. Authenticated by Leandra To PA-C on 11/15/2022 16:17:47. Problem List/Past Medical History Ongoing Anxiety and depression Congestive heart failure Coronary artery disease Dysuria Fibromyalgia Flank pain Meniere disease Microhematuria Migraine Proteinuria Recurrent UTI Type 2 diabetes mellitus UTI (urinary tract infection) Historical No qualifying data Procedure/Surgical History Appendectomy, Bowel, Carpal tunnel release, Cataract, Hysterectomy, Tonsillectomy, Triple coronary bypass. Medications Aimovig SureClick, SubCutaneous, qMonth albuterol albuterol CFC free 90 mcg/inh inhalation aerosol Apidra, SubCutaneous atorvastatin 80 mg Tab Breo Ellipta, Inhalation, Daily (more content not included)... Normal [facility] Comment on above: Result Comment: Elec tronically Signed By: LEANDRA OT PA-C\.br\Date and Time Signed: 11/15/22 16:18 EST\.br\Electronically Co-Signed By: Ayanna Varma\.br\Date and Time Co-Signed: 11/15/22 15:48 EST Office Visit (Cardiology)on 09-24-2022 Follow-up visit Diagnoses/Problems Assessed CAD, multiple vessel (414.00) (I25.10) Ischemic cardiomyopathy (414.8) (I25.5) Orthostatic hypotension (458.0) (I95.1) SOB (shortness of breath) on exertion (786.05) (R06.02) 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,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) Essential hypertension, benign (401.1) (I10) Hyperlipidemia (272.4) (E78.5) Never a smoker Diabetes mellitus (250.00) (E11.9) Chest pain (786.50) (R07.9) Class 1 obesity with body mass index (BMI) of 31.0 to 31.9 in adult (278.00,V85.31) (E66.9,Z68.31) Orders CAD, multiple vessel, Chest pain Renew: Ranolazine ER 500 MG Oral Tablet Extended Release 12 Hour; Take one tablet by mouth twice a day CAD, multiple vessel, Essential hypertension, benign, Ischemic cardiomyopathy Renew: Carvedilol 3.125 MG Oral Tablet; Take 1 tablet twice daily ALT - Alanine Aminotransferase, Serum; Status:Active - Retrospective Authorization; Requested for:05Nov2022; AST; Status:Active - Retrospective Authorization; Requested for:05Nov2022; Basic Metabolic Panel; Status:Active - Retrospective Authorization; Requested for:05Nov2022; Lipid Panel; Status:Active - Retrospective Authorization; Requested for:05Nov2022; CAD, multiple vessel, Essential hypertension, benign, Ischemic cardiomyopathy, SOB (shortness of breath) on exertion Start: Disability Placard; Handicap Placard renewal for next 5 years to on 10/03/2027 Class 1 obesity with body mass index (BMI) of 31.0 to 31.9 in adult Healthy Weight Tips; Status:Complete - Retrospective Authorization; Done: 24Sep2022 Some eating tips that can help you lose weight.; Status:Complete - Retrospective Authorization; Done: 24Sep2022 Hyperlipidemia, PMH: Multiple vessel coronary artery disease Renew: Atorvastatin Calcium 80 MG Oral Tablet; TAKE 1 TABLET AT BEDTIME PMH: Multiple vessel coronary artery disease Renew: Clopidogrel Bisulfate 75 MG Oral Tablet; TAKE 1 TABLET DAILY SocHx: Never a smoker Tobacco Use Screening; Status:Complete; Done: 24Sep2022 Patient Instructions Please bring all medicines, vitamins, and herbal supplements with you when you come to the office. Prescriptions will not be filled unless you are compliant with your follow up appointments or have a follow up appointment scheduled as per instruction of your physician. Refills should be requested at the time of your visit. Follow up in 6 months with EKG handicap placards Chief Complaint ELIZABETH MANRIQUE is being seen for a 6 month follow-up of. History of Present Illness Patient is here for follow-up continue management for coronary artery disease previous bypass surgery, mild ischemic cardiomyopathy, shortness of breath and recurrent episode of orthostatic hypotension attributed to autonomic dysfunction. Since last time I saw her she denies change in cardiac status or symptoms. She described intermittent episodes of brief chest pain. She has nitroglycerin on couple of occasion. She denies any intervening symptoms except for recurrent UTI ASSESSMENT: 1. Coronary artery disease with with bypass surgery back in 2016. She described symptoms of shortness of breath. Few episodes of chest pain. Last stress test in 2019 was negative 2. Chronic orthostatic hypotension due to autonomic diabetic neuropathy improved with increasing midodrine recently 3. Ischemic cardiomyopathy, improved. MUGA scan showed ejection fraction of 40-45 %. 4. INTOLERANCE TO MARY INHIBITOR DUE TO CHRONIC ORTHOSTATIC HYPOTENSION. 5. History of hypertension, controlled with component of orthostatic hypotension due to autonomic neuropathy. She takes midodrine. 6. Shortness of breath with the above factors, seems to be stable with functional class II. 7. Obesity with no weight changes. 8. Diabetes mellitus she reports has not been very well-controlled 9. Intermittent edema 10. Hyperlipidemia with improvement of her triglyceride RECOMMENDATIONS: 1. Advised the patient to try to continue same treatment 2. We discussed repeat ischemic evaluation however considering her symptoms had been relatively stable she elected to remain on current therapy unchanged. She will notify me change in cardiac status or symptoms 3. Patient was consulted on losing weight, exercise and dietary modification and was encouraged to use her stationary bike. 4. We'll see her back and 6 month in follow-up or earlier if the need arise 5. Continue to encourage her to optimize her diabetic control 6. Continue to encourage the patient to maintain high fluid intake, wear compression stocking and use Midrin as needed 7. I reviewed with her her recent lab work Surgical History Problems History of Carpal tunnel surgery Denied: History of Colonoscopy History of Coronary artery bypass graft 12/07/16 History of Tonsillectomy History of Total hysterectomy abdominal Current Meds Medication NameInstruction Aimovig SOAJas directed Albuterol Sulfate HFA 108 (90 Base) MCG/ACT Inhalation Aerosol Soluti (more content not included)... Normal [facility] Tobacco Screening.on 022 Fall risk assessment a) No falls within the last year -[facility] [address] DO Work Phone: Tobacco use status [facility] b) No M -[facility] [address] [address] DO Work Phone: A1C HEMOGLOBINon 09-18-2022 HbA1c (Bld) [Mass fraction] 7.0 % 79 Group Other Glucose - FINGER STICKon Glucose [Mass/Vol] 134 mg/dL 79 Group Other HbA1c (Bld) [Mass fraction]o n 09-18-2022 A1C HEMOGLOBIN [facility] happin! Other Coding Summary.on 08-30-2022 Coding Summary. CD:[id number] Gh0bWw+PGhlYWQ+PE1FV NQhE66qyXHwcI3GW5hBL D5GBMTIKIJCXL9GMT2eq DX4JYfzU5XgvvAo GjtszUNfFP32NAl0PKB7 lOnrKWvnyK7nbHIiO7h5 KnOxII71oC31MKdzIJMe WqF2GiGhgbddnNRy Q5awZkEjkNMkMfn+PHRh YmxlIHdpZHRoPScxMDAl GeVnlOhjJW5dZd8aHJPv LWNvbGxhcHNlOiBj l5vgNSXbEMdeGV9fqQyj F4LinUL6MDEix1a3Op09 dHI+BQYjYDD7xDktXFug m152IuNiy8ozFNS3 pUMuROjnQUY7Y26am4G6 YCXqNVMkOMP7nQN4lM3i sDbtszktY8FizNNfUeN6 HKF2pEVaqR3xmEms rzihwD3sQtq+R90WGU4N KLDWEM3STfs3P9ApFcod dHI+VU07VBFgGL10hBIa sOYwd8robOv6ZyPf FRDdTAM0dOijRDkrz1Bu FTZvB81qaQPwc7W9GRAf zDzjoAWlXsDrsNY7gW9s OUxuiosms0bimmag Gfmgk4cnuj01bX01V59b RFufQASzIJI1AQWsUIFh dAgvol2qlG4xVk8+IDxj g4ddg2nivOi5FzHu AQGlleMeaOmzAOA2g3Ux Tz08F2TtbNsxj8QgBec5 zo79jAHnz7F0eOS7AUyp OHHjdD5kTVlsOyG3 SWHzPnVcfG47fCQyPIqj Xu2zbJnkqSjvAU4bTQAc zwtwEFKcgO0tQBRhtVMb vOgkAZ7iPMZvmjxn t372HaZbXFB6TEKurGHa X3QzkF6wByJyPQQuUBSo F1BltIJbPOaiG613QXzi CaB8NQXalrGsC8Xq JNLzkPodQiJ4h9F2El6D o0TyufosIOY1SXjtDRQq IhQ2SaKrZvE4L4GbWir5 XWWcaBcuAY2rV4Sy MSJltuvkxyztfSN4TKVm JDBibC76fVWwSErbTv9f q3S1a879PJJoYDDjiX86 Mf6rlFtzAVAzoQFU iS4hgltqx7signlkGvBv ZGKxXNj2KOx4OOAxjNlu VpOpGLU1QhX0LNL6lVLy fK6flWsdnkxxiD9z Oyc+D41pkG9pMAB3OZD1 nlzyIGBlsqVyCC26XQ51 G4XmTcvvgSCihPV+PGRp enHqzMtgSF1wYlZx f4wab2FhQKebR7DlSJZl MUqkMyu7KXBaLCC1tMG0 vB4dKZJrSOgvr5R4mCN3 E4SxcoJugo9pe7fp VDMmLKvjO63bpOZkp8X5 MILvkBB5FMPpnBvtDbAf nI50Vbl+UNYilSofg3Jm Zhowk4pcn8rqmMf2 IjMwJSIgdmFsaWduPSJ0 a8NuJb57A96aSOcmPXRi FAGcQQOyTZEpmOddiu9v dB2uJc8+PGNvbCB3 hLC9aE7kOHWpYhR6DVdg Z151IbImzDYcYuvwy0mz d1boxKw0YvLzBVHqegOh dYalTOK5w2JmFx64 D72fUAjsMATsMWDnPQFd ASEiqQvwse0qmQ2tJf0+ JD0kb2yzrw13pP37wNW+ QYXmFDM1kGrcHXxu HGBtbY8nGUpyXdF9VNNb ExEscU69jRTiYYcrEn3b gIuglVvjCO8yJZHttdgx k275MkOvc1naJOIu aVIpDRkhIVF7G96jl3G2 YEAxEGWcFXG0oDF3gB7l bGlnbjogbGVmdDsgdmVy hSsvVQzmJVyiE414 IHRvcDsnPlBhdGllbnQg BmCrMPk2A9RrDia1SHPl mXtfNZ4ulJOoLIjfZg2j zLqofUilKO8nMVEb qlmbo538GgBal8lkLXHe xPKyYPpgLHU6W69pg6N9 HJBhEQRgVNL4kEO2aB7r bGlnbjogbGVmdDsg ipHebCemLHvgIXvyG283 IHRvcDsnPkJpcnRoIERh lHT9BC35LX10vNQby1N3 aHK1G1PfOORzrwlp duuzmHV1DWKaAUMogY79 Zv1gyZboAd1eXXBjIZC0 SDImyHAmZ1NniG4eEhHl AZVhKKHhI5SjqXXn AQzvG014IBdjEoV2HRGw fzDvI9HhCECsyXxcCpJ3 n6B0Yi6OH4F3KK39GT02 gMIvj1Z5jSY7D2Wx REXtehcsksebzLF3VETr FFYbyW70Cu6uePsdMc1l YOXbKDJ5DDYxgLHfM3Sv uB3eClGmFUDkZAOp W4QrsGYjAGqsV362NXkb BqK5AABeotJuN4QrIAJt yFwbLyP8g2Q2Us5CBPi0 ZR16KM20wJGle0L5 wXZ2H5OrSRRivzaypitn gTN3YJOgINXxoO40Ev5u yDfeSi1dXKRrCQB6ETRt zHAvA6HbgU6tWgUr YDGtMBTwE9GgeTEpQOha K931KNsvZnF3RWFwacXp T5AjKQEviIrxSmE7k4I5 Ki6MPWUiVK90EMV4 vFN8RU29JT44R7PkYvby dGFibGU+PHRhYmxlIHdp ZHRoPScxMDAlJyBzdHls CJ0fTi5jUMNeIUVg yYkitMImZiMxb4ikUDKk NHkrIO5xoZmxR0OflKV6 TPCec9e0Nc53F89rA6Xu dXA+EQQdnHE4jDY0 cI4cVaUyVlU1NTgiL801 PfEjtFFmMifvj0szj0ti nKs3YyQ6SKIkgfAorQeg GBW0b0DfGo12A77f IHdpZHRoPSIxNSUiIHZh pMzoea5caR1wYn2+PGNv nHO9mVM3eY4wZaVzEeB0 AMeyH339LfHjtNCx Tekjc0djg0zluWo7QuOa NMLyaqEcnAehYDG8m1Ad Nh72M5YhpFvum5VjEqd6 ai16rWKln3I8yHY0 O7ImKNVterqalVBqyNdb GI4sUXTnrttpQSLssG0a RVTvC1i2CcPyQxV6KJoq S6YwhjG3YMRjvENd NNceCJI7W82gy4P9PCJh LCHiHQH0yXF0yZ8wkHzu bjogbGVmdDsgdmVydGlj VAvqQKobT597YWFf sYfiHOKifW3wMJHreCSw gMnnVM8zFMNmricfGniG JIoMDoSiMKVMVqR4T8Mi Tob9FIDhySlzEK2c rSCkQRsvQy8huTqypTpg YO9wJYPebgyqOCMxgO9h VKWyoTYbaIeuFP9xFXLk nvfwk462ZaEwYAI0 LCUmxENdU5SesH9uXtIb DYXfBTEuX7TidFDwAOos Y799IHgrZlX4JHZcgoMq B3DhYJJwpVabGkB4 y6A4Rj8eTq3dMa3cMWT9 OU81VJ40bSQpa2I3aVW9 F4RzRHVexavrcceeaWC2 FCKzRFBlmP01rZAs BTfwDp1rc2S4x675UCUi MASqfL16Zg2xuEnzSCMv qRAYpC5gijvkt0xtdncz BhUrBEQxHVw9IZm7 VVPvqPdiInIxTIO9SkK1 GXE6nYPdyA4gnYjdslca pG1iPjx+NjUgWWVhcnM8 D2KbSrk8FPBnoKyr HZ9buOQfEMwbWf7duVvt bJqaQO6tADCqirosAYPv pX1wLFCrcYFslVrzLS9c WBRkllweb459VcSw RKI6OWSlmKXdQ4PisU5x ZoAkRFMfSYHyU9OuhBFd ALhnB809UJnvIuL3NJOs cePyO4JmHCQaoWub CaT9q6U2Om6PZP4icXH8 C3SqGbv3QEVnqCabGD3s oVMxIXrpLn6vqOpphBga DQ4oVNMladfxMIVm tA2zUSDntJTfpEqmCF2x ZXHlajayb066SaGqBCK0 RUWpkJCyV7ZcmH0zCkCt QDZeAQOdO7JpdRIq FAfoQ330SJeeNxN9LBPc oqRyC3FuEGLskRrxVtN9 s2W8Ce0MKEWzWNUftOMl BxG6S6EfHatvqTV+ XA98AKZdVQ87vEGenWOz g0ultJw3OnBnZARwNKZ8 cCzbLBmlo1HqHJFoQ35m tTEzy1Q4CTBooOob hDRoQrHxkOX4jB4cSXxo vjjac3epldfmCvlwx7ws fl86dS20V85iATqfNEWz PSIzMCUiIHZhbGln fs7niP0fMc2+PGNvbCB3 cYB2kE6sYlGpGmS8YBzr H542CpUgwTYiLuytk7xd u8xaiRb8UtYoPEMw ylUrnKogBKC3c5ZaCs18 W87aEOwpCLTxIRXjXTVc IELgkBpvxl3lnB6uVo7+ CV8kt7wple02pB73 dHI+NOGaBNX0vCkpPAll RNFeqU9wOGveEeI1ZSQe PmKsdN74oMNvEHrzPy2t jGypnDltCU3gBKEv remwk209ZlMmg7tbZFQz zXZbMRyiZFN0S05kt5R8 XPMbVYDtUBX8eZZ1dD8h bGlnbjogbGVmdDsg chAglQoiOXzqBNlsT073 MYBxjYtfAiGngZPnG0ss oxYASS8wArmsxBP+PHRk RNK3hLjzHHgnZTAe bA2kAOKnV5d6GnZlOuK1 ZWazR2FqwrE2FHKebHXu YPVxrJSAgD9whmvbv4cm cjogIzAwMDAwMDt0 XDi2WCHxzQbsFuVhYMU3 IuC2BSE5dBQmhZ5cyGyf rlfmnW0jJnl+RklOOjwv dGQ+HPKqRPY4gMdl FJysFOLxpP3pQZXxP2s6 LyAtUqA0ZAblQ0ZuxjY5 VUHcmJIbWUAbnIXAeC5n jsltm2eptllwYfTb AUBlKZd0DNj8BXDimOoh XtVmPRU8EaF8UGD4xUZd kE5wpZwndsmpvF8bRtx+ TVJOOjwvdGQ+PHRk QSX4oLokXHnrWSRprT2z RMUwM6v2EeMjLgI7SEsb C3KbmxN3IYOecXOrRXVw qEXDxS4gxbhwx3xq viczAjOrXCRuTFj4ETh9 QGZvmUryGkXbEEB1OeB3 YXJ4sONbnK4oaPqslovk mV6sFnz+MHJ1VFX2 NZ60NB69B3VoQzpylWOp bGU+PHRhYmxlIHdpZHRo GImxMMBcFwXrwTyjVE1g Qj3zOFUwZWGmzIpp cHNl (more content not included)... Normal [facility] Consultation Noteon 08-27-20 Consultation Note [id number] 2#1.00CD:127 Normal [facility] Lab Reportson 08-27-2022 Lab Reports [id number]#1.00CD:127 Normal [facility] RAD - Ultrasound Reporton RAD - Ultrasound Report [id number]#1.00CD:127 Normal [facility] C Urineon 08-26-2022 Bacteria identified Cx Nom (U) Microbiology PROCEDURE: Urine Culture [R1] SOURCE: U CleanCatch BODY SITE: COLLECTED DATE/TIME: 08/23/2022 10:21 EDT RECEIVED DATE/TIME: 08/24/2022 07:03 EDT START DATE/TIME: 08/24/2022 07:03 EDT FREE TEXT SOURCE: LEANDRA TO PA-C, PA-C, JENNIFER E FINAL REPORTS Final Report [] Verified Date/Time: 08/26/2022 07:08 EDT 2,000 cfu/ml Mixed skin contaminants Performing Locations R1: This test was performed at: [facility], [address] [place] [address], [phone] , , [facility] Comment on above: Performed By: #### 2 [id number] ####[facility] [address] [place] [address] Formson 08-24-2022 Forms [id number] #1.00CD:127 [facility] RAD - MISCon 08-24-2022 RAD - MISC [id number] 0#1.00CD:127 [facility] Comment on above: Other Comment: OSCAR GRANT RAD - Ultrasound Reporton RAD - Ultrasound Report [id number] 6#1.00CD:127 [facility] Comment on above: Other Comment: [facility]SCAR GRANT Patient Correspondenceon Patient Correspondence [id number] #1.00CD:127 [facility] Patient Educationon 08-23-20 22 Patient Education Infectious Disease Infection Prevention in the Home If you have an infection, may have been exposed to an infection, or are taking care of someone who has an infection, it is important to know how to keep the infection from spreading. Follow your health care provider's instructions and use these guidelines to help stop the spread of infection. How infections are spread In order for an infection to spread, the following must be present: ? A germ. This may be a virus, bacteria, fungus, or parasite. ? A place for the germ to live. This may be: ? On or in a person, animal, plant, or food. ? In soil or water. ? On surfaces, such as a door handle. ? A person or animal who can develop a disease if the germ enters the body (host). The host does not have resistance to the germ. ? A way for the germ to enter the host. This may occur by: ? Direct contact with an infected person or animal. This can happen through shaking hands or hugging. Some germs can also travel through the air and spread to others. This can happen when an infected person coughs or sneezes on or near other people. ? Indirect contact. This occurs when the germ enters the host through contact with an infected object. Examples include: ? Eating or drinking food or water that has the germ (is contaminated). ? Touching a contaminated surface with your hands, and then touching your face, eyes, nose, or mouth. Supplies needed: ? Soap. ? Alcohol-based hand furniture refinisher. ? Standard cleaning products. ? Disinfectants, such as bleach. ? Reusable cleaning cloths, sponges, or paper towels. ? Disposable or reusable utility gloves. How to prevent infection from spreading There are several things that you can do to help prevent infection from spreading. Take these general actions Everyone should take the following actions to prevent the spread of infection: ? Wash your hands often with soap and water for at least 20 seconds. If soap and water are not available, use alcohol-based hand furniture refinisher. ? Avoid touching your face, mouth, nose, or eyes. ? Cough or sneeze into a tissue, sleeve, or elbow instead of into your hand or into the air. ? If you cough or sneeze into a tissue, throw it away immediately and wash your hands. Keep your bathroom clean ? Provide soap. ? Change towels and washcloths frequently. ? Change toothbrushes often and store them separately in a clean, dry place. ? Clean and disinfect all surfaces, including the toilet, floor, tub, shower, and sink. ? Do not share personal items, such as razors, toothbrushes, deodorant, blakely, brushes, towels, and washcloths. Maintain hygiene in the kitchen ? Wash your hands before and after preparing food and before you eat. ? Clean the inside of your refrigerator each week. ? Keep your refrigerator set at 40?F (4?C) or less, and set your freezer at 0?F (?18?C) or less. ? Keep work surfaces clean. Disinfect them regularly. ? Wash your dishes in hot, soapy water. Air-dry your dishes or use a vice president of nursing. ? Do not share dishes or eating utensils. Handle food safely ? Store food carefully. ? Refrigerate leftovers promptly in covered containers. ? Throw out stale or spoiled food. ? Thaw foods in the refrigerator or microwave, not at room temperature. ? Serve foods at the proper temperature. Do not eat raw meat. Make sure it is cooked to the appropriate temperature. Cook eggs until they are firm. ? Wash fruits and vegetables under running water. ? Use separate cutting boards, plates, and utensils for raw foods and cooked foods. ? Use a clean spoon each time you sample food while cooking. Do laundry the right way ? Wear gloves if laundry is visibly soiled. ? Do not shake soiled laundry. Doing that may send germs into the air. ? Wash laundry in hot water. ? If you cannot wash the laundry right away, place it in a plastic bag and wash it as soon as possible. Be careful around animals and pets ? Wash your hands before and after touching animals. ? If you have a pet, ensure that your pet stays clean. Do not let people with weak immune systems touch bird droppings, fish tank water, or a litter box. ? If you have a pet cage or litter box, be sure to clean it every day. ? If you are sick, stay away from animals and have someone else care for them if possible. How to clean and disinfect objects and surfaces Precautions ? Some disinfectants work for certain germs and not others. Read the dive superintendent's instructions or read online resources to determine if the product you are using will work for the germ you are trying to remove. ? If you choose to use bleach, use it safely. Never mix it with other cleaning products, especially those that contain ammonia. This mixture can create a dangerous gas that may be deadly. ? Keep proper movement of fresh air in your home (ventilation). ? Pour used mop water down the utility sink or toil (more content not included)... Normal [facility] URINALYSISOrdered By: Jose armendariz on 08-23-2022 Bacteria LM Ql (Urine sed) 1+ /HPF Invalid Interpretation Code Trace/HPF [facility] UA Auto SS Bilirubin Ql (U) Negative (08/23/22 10:21 AM) Normal Negative [facility] UA Auto SS Clarity (U) Cloudy *ABN* (08/23/22 10:21 AM) Invalid Interpretation Code Clear [facility] UA Auto SS Color (U) Yellow (08/23/22 10:21 AM) Normal Yellow [facility] UA Auto SS Epithelial cells.squamous LM.HPF (Urine sed) [#/Area] 3-4 /HPF Normal 0-2/HPF [facility] UA Aut o SS Glucose Test strip (U) [Mass/Vol] 3+ *ABN* (08/23/22 10:21 AM) Invalid Interpretation Code Negative [facility] UA Auto SS Hemoglobin Ql (U) 1+ *ABN* (08/23/22 10:21 AM) Invalid Interpretation Code Negative [facility] UA Auto SS Ketones (U) [Mass/Vol] Negative (08/23/22 10:21 AM) Normal Negative [facility] UA Auto SS [place].plasma/[place].R BC (Bld) [Mass ratio] 0-3 /HPF Normal 0-3/HPF [facility] UA Au to SS Mucus Ql (Urine sed) Trace (08/23/22 10:21 AM) Normal [facility] UA Auto SS Nitrite Ql (U) Negative (08/23/22 10:21 AM) Normal Negative [facility] UA Auto SS pH (U) 5.5 *NA* (08/23/22 10:21 AM) Invalid Interpretation Code 5.0 - 9.0 [facility] UA Auto SS Protein (U) [Mass/Vol] 1+ *ABN* (08/23/22 10:21 AM) Invalid Interpretation Code Negative [facility] UA Auto SS Specific gravity (U) [Rel density] 1.020 *NA* (08/23/22 10:21 AM) Invalid Interpretation Code 1.005 - 1.030 [facility] UA Auto SS UA Spec Desc Clean Catch (08/23/22 10:21 AM) Normal [facility] UA Auto SS Urobilinogen Qn (U) 0.3346598 {Omi'U}/dL Normal 0.0 - 1.0 EU/dL [facility] UA Auto SS WBC Auto Ql (U) 1+ *ABN* (08/23/22 10:21 AM) Invalid Interpretation Code Negative [facility] UA Auto SS WBC LM.HPF (Urine sed) [#/Area] /[HPF] Invalid Interpretation Code 0-5/HPF [facility] UA Auto SS Urinalysison 08-23-2022 Bacteria LM Ql (Urine sed) 1+ /HPF Abnormal Trace [facility] Comment on above: Performed By: #### 1 [id number] ####[facility] [address] [place] [address] Bilirubin Ql (U) Negative Normal Negative [facility] Comment on above: Performed By: #### 1 [id number] ####[facility] [address] [place] [address] Clarity (U) CLOUDY Abnormal Clear [facility] Comment on above: Performed By: #### 1 [id number] ####[facility] [address] [place] [address] Color (U) YELLOW Normal Yellow [facility] Comment on above: Performed By: #### 1 [id number] ####[address] [address] Epithelial cells.squamous LM.HPF (Urine sed) [#/Area] 3-4 Normal 0-2 [facility] Comment on above: Performed By: #### 1 [id number] ####[facility] [address] [place] [address] Glucose Test strip (U) [Mass/Vol] 3+ Abnormal Negative [facility] Comment on above: Performed By: #### 1 [id number] ####[facility] [address] [place] [address] Hemoglobin Ql (U) 1+ Abnormal Negative [facility] Comment on above: Performed By: #### 1 [id number] ####[facility] [address] [place] [address] Ketones (U) [Mass/Vol] Negative Normal Negative [facility] Comment on above: Performed By: #### 1 [id number] ####[facility] [address] [place] [address] [place].plasma/[place].R BC (Bld) [Mass ratio] 0-3 Normal 0-3 [facility] Comment on above: Performed By: #### 1 [id number] ####[facility] [address] [place] [address] Mucus Ql (Urine sed) TRACE Normal [facility] Comment on above: Performed By: #### 1 [id number] ####[address] [address] Nitrite Ql (U) Negative Normal Negative [facility] Comment on above: Performed By: #### 1 [id number] ####[address] [address] pH (U) 5.5 [pH] Invalid Interpretation Code 5.0-9.0 [facility] Comment on above: Performed By: #### 1 [id number] ####[address] [address] Protein (U) [Mass/Vol] 1+ Abnormal Negative [facility] Comment on above: Performed By: #### 1 [id number] ####[address] [address] Specific gravity (U) [Rel density] 1.020 Invalid Interpretation Code 1.005-1.030 [facility] Comment on above: Performed By: #### 1 [id number] ####[address] [address] Type of Urine collection method Clean Catch Normal [facility] Comment on above: Performed By: #### 1 [id number] ####[address] [address] Urobilinogen Qn (U) 0.2 {Omi'U}/dL Normal 0.0-1.0 [facility] Comment on above: Performed By: #### 1 [id number] ####[address] [address] WBC Auto Ql (U) 1+ Abnormal Negative [facility] Comment on above: Performed By: #### 1 [id number] ####[address] [place] [address] WBC LM.HPF (Urine sed) [#/Area] /[HPF] Abnormal 0-5 [facility] Comment on above: Performed By: #### 1 [id number] ####[facility] [id number] [place] [address] Urology Office/Clinic Noteon 08-23-2022 Urology Office/Clinic Note Chief Complaint New Patient HPI Staff New Patient Elizabeth is a 67 y/o female here for Dysuria and Proteinuria. Pt has had a history of UTI's. PVR today 78mL. Dysuria: _Yes burning and pain for about 6 weeks. Incomplete bladder emptying: _Yes Hematuria: _Denies visible blood Frequency: _every 1-2 hours Urgency: _yes Nocturia: _2-3x Stream: _steady at first but then stop and goes towards the end Leaking: _Denies Post void dripping: _Denies Wearing pads/ Depends: _Denies Urge incontinence: _only if she waits to long Stress incontinence: _Denies Incontinence without Sensory Awareness: _Denies Abdominal pain: _yes on and off for about 6 weeks Flank pain: _yes on and off for about 6 weeks both sides. Sexual complaints: _ History of Present Illness staff HPI reviewed and agree. Review of Systems no fever, chills, malaise, myalgia. no rash/lesions. no chest pain, palpitations, or SOB. no abdominal pain, nausea, vomiting. no unilateral calf swelling, redness, pain Physical Exam Vitals & Measurements HR: 78(Peripheral) BP: 160/96 HT: 63 in HT: 160 cm WT: 80 kg WT: 176 lb BMI: 31.25 General: nontoxic, NAD Mouth: moist mucosa Lungs: normal respiratory effort Cardio: regular rate, good distal perfusion Abdomen: nondistended, no suprapubic distention or tenderness, no CVA tenderness Neurologic: Grossly normal Skin: No rashes or suspicious lesions Assessment/Plan 1. Dysuria (R30.0: Dysuria) c/o burning and pain in urethra with every void. also bilateral flank pain and suprapubic pain like someone beat me up. sx constant x 6 weeks. not worsening but not improving. has increased urinary frequency but no odor/cloudiness to urine. - Pt UA today shows small blood, and small CHRIS, will send for micro and culture. - PVR 78mL - will start pt on Keflex 500mg BID for 7 days. Discussed the medication side effects, and the patient will monitor closely for these, as well as for symptom improvement. If severe side effects occur, the medication should be stopped and the office notified. 2. Flank pain (R10.9: Unspecified abdominal pain) see #1. if no infection on cx/no improvement w abx will need to consider CT. pt did have DION May 2022 which showed no obstruction, but pain started since that time. 3. Microhematuria (R31.29: Other microscopic hematuria) denies gross hematuria. small blood on UA today. explained that if micro shows >3RBCs and no infection, will need to initiate hematuria work-up. 4. Proteinuria (R80.9: Proteinuria, unspecified) - has CKD stage [address] Leigh regularly. has f/u with him in a couple weeks. Ordered: Urinalysis Urine Culture Orders: cephalexin, 500 mg = 1 cap(s), Oral, BID, X 7 day(s), # 14 cap(s), Refills(s) 0, Pharmacy: [facility] [id number], 160, cm, 08/23/22 10:01:00 EDT, Height/Length Dosing, 80, kg, 08/23/22 10:01:00 EDT, Weight Dosing Measure Post Void residual urine and/or bladder capacity by US- non-imaging 56373 Urnls Dip Stick Auto w/o Microscopy POC [id number] Follow-up With When Contact Information XOCHITL GREY, LEANDRA Millan, URL Within 4 weeks [address] [place] [place] [address] Additional Instructions: Patient Education Infection Prevention in the Home Booker, Ayanna Varma, personally scribed for Leandra To PA-C on 08/23/2022 10:38:39. . Documentation recorded by the scribdivine Varma accurately reflects the services(s) I performed and decisions made by me. Authenticated by Leandra To PA-C on 08/23/2022 11:20:33. Problem List/Past Medical History Ongoing Anxiety and depression Congestive heart failure Coronary artery disease Fibromyalgia Meniere disease Migraine Proteinuria Recurrent UTI Type 2 diabetes mellitus Historical No qualifying data Procedure/Surgical History Appendectomy, Bowel, Carpal tunnel release, Cataract, Hysterectomy, Tonsillectomy, Triple coronary bypass. Medications albuterol albuterol CFC free 90 mcg/inh inhalation aerosol Apidra, SubCutaneous atorvastatin 80 mg Tab Breo Ellipta, Inhalation, Daily carvedilol 3.125 mg Tab clopidogrel 75 mg Tab digoxin 125 mcg (0.125 mg) Tab, Oral, Daily diphenhydrAMINE 12.5 mg oral tablet, chewable, Chewed, q6hr EPA Fish Oil 1000 mg oral capsule, Oral, Daily furosemide 20 mg Tab Jardiance 25 mg oral tablet Lantus, SubCutaneous, Daily midodrine, Oral, TID Mucinex, Oral, q12hr Nitro 0.4 mg Tab, 1 tab(s), SubLingual, q5min, PRN omeprazole 20 mg Cap-DR POT CHLORIDE 10MEQ ER TAB, 0 Ranexa 500 mg Tab-ER, Oral, BID Spiriva Respimat 1.25 mcg/inh inhalation aerosol, Inhalation, Daily topiramate 100 mg Tab Tylenol 325 mg oral capsule, Oral, TID Vitamin D, Oral, qWeek Allergies No Known Allergies Social History Tobacco Never (less than 100 in lifetime) Tobacco Use:. Never Smokeless Tobacco Use:., 08/23/2022 Family History Alcoholism: Father. (more content not included)... Normal [facility] Comment on above: Result Comment: Elec tronically Signed By: LEANDRA TO PA-C\.br\Date and Time Signed: 08/23/22 11:20 EDT\.br\Electronically Co-Signed By: Ayanna Varma.br\Date and Time Co-Signed: 08/23/22 10:39 EDT Urine culture routineOrdered By: Zaina Leigh on 06-02-2022 Bacteria identified Cx Nom (U) 2 Days [facility] Automated erythrocytes count in urine sediment (number/area)Ordered By: Zaina Leigh on 05-31-2022 RBC Auto (Urine sed) [#/Area] 10-19 [HPF] 0-4 [facility] Automated leukocytes count i n urine sediment (number/area)Ordered By: Zaina Leigh on 05-31-2022 WBC Auto (Urine sed) [#/Area] Innumerable [HPF] 0-4 [facility] Bilirubin Auto test strip Ql (U)Ordered By: Zaina Leigh on 05-31-2022 Bilirubin Ql (U) Negative Negative [facility] Blood hemoglobin measurement (mass/volume)Ordered By: Zaina Leigh on 05-31-2022 Hemoglobin (Bld) [Mass/Vol] 11.3 g/dL 11.8-15.4 [facility] Body fluid albumin measureme nt (mass/volume)Ordered By: Zaina Leigh on 05-31-2022 Albumin (Body fld) [Mass/Vol] 3.3 g/dL 3.2-5.5 [facility] Casts typing in urine sedime nt by light microscopyOrdered By: Zaina Leigh on 05-31-2022 Casts LM Nom (Urine sed) N/A [facility] Creatine kinase [Enzymatic a ctivity/volume] in Serum or PlasmaOrdered By: Az Hayes on 05-31-2022 CK [Catalytic activity/Vol] 187 U/L 22-269 [facility] Creatinine [Mass/volume] in UrineOrdered By: Zaina Leigh on 05-31-2022 Creatinine (U) [Mass/Vol] 89.1 mg/dL [facility] Comment on above: No reference range e stablished Creatinine and Glomerular fi ltration rate.predicted panel (S/P/Bld)Ordered By: Zaina Leigh on 05-31-2022 Creatinine [Mass/Vol] 0.92 mg/dL 0.44-1.03 [facility] Erythrocyte distribution wid th Auto (RBC) [Ratio]Ordered By: Zaina Leigh on 05-31-2022 Erythrocyte distribution width (RBC) [Ratio] 14.1 % 11.9-15.3 [facility] Estimated glomerular filtrat ion rate (GFR) non- AmericanOrdered By: Zaina Leigh on 05-31-2022 GFR/1.73 sq M.predicted among non-blacks MDRD (S/P/Bld) [Vol rate/Area] > 60 mL/Min [facility] Hematocrit Auto (Bld) [Volum e fraction]Ordered By: Zaina Leigh on 05-31-2022 Hematocrit (Bld) [Volume fraction] 34.2 % 34.0-46.4 [facility] Ketones Auto test strip (U) [Mass/Vol]Ordered By: Zaina Leigh on 05-31-2022 Ketones (U) [Mass/Vol] Negative Negative Fi [facility] - Chemistry and C hemistry - challengeOrdered By: Zaina Leigh on 05-31-2022 Magnesium [Mass/Vol] 1.9 mg/dL 1.6-2.6 [facility] - UrinalysisOrder ed By: Zaina Leigh on 05-31-2022 Hyaline casts LM Ql (Urine sed) N/A [facility] MCH Auto (RBC) [Entitic mass ]Ordered By: Zaina Leigh on 05-31-2022 MCH (RBC) [Entitic mass] 31.1 pg 24.7-34.3 [facility] MCHC Auto (RBC) [Mass/Vol]Or dered By: Zaina Leigh on 05-31-2022 MCHC (RBC) [Mass/Vol] 33.1 g/dL 32.0-35.0 [facility] MCV Auto (RBC) [Entitic vol] Ordered By: Zaina Leigh on 05-31-2022 MCV (RBC) [Entitic vol] 94.1 fL 80-100 [facility] No Panel InformationOrdered By: Zaina Leigh on 05-31-2022 Estimated GFR () > 60 mL/Min [facility] Comment on above: GFR estimated refere nce range: According to KDOQI guidelines, <60 ml/min/1.73m2 is sufficient to diagnose a patient with chronic kidney disease. Pharmacy Creatinine Clearance (Chem N/A [facility] No Panel InformationOrdered By: Angela Aldrich on 05-31-2022 25-Hydroxy Vitamin D Total 19.7 ng/mL 30-100 [facility] Comment on above: VITAMIN D STATUS 25( [place])VITAMIN D RANGE (ng/mL) Deficient <20 Insufficient 20 to <30 Sufficient 30 to 100 Reference: David MF,Nubia NC, Thom MARTINEZ, et al. Evaluation,treatment, and prevention of vitamin D deficiency; an Endocrine Society clinical practice guideline. JCEM. 2010; 96(7):1911-30. No Panel Informationon 05-31 187\S\187 Normal 22-269 -[facility] [address] DO Work Phone: Comment on above: PERFORMED BY:[place] [address] [place], [place] [phone] MEDICAL DIRECTORMARIELDIAM[facility] ASIA Sp[place] 8.9\S\8.9 Normal 8.2-10.2 [facility] Work Phone: Comment on above: PERFORMED BY:[place] [address] [place], [place] [phone] MEDICAL DIRECTORMARIELDIAMOND [facility] [place] 24.6\S\24.6 Normal 22.0-30.0 [facility] [address] DO Work Phone: 104\S\104 Normal 95-114 [facility] [address] DO Work Phone: 4.2\S\4.2 Normal 3.5-5.1 [facility] 600 DO Work Phone: 136\S\136 Normal 136-146 [facility] DO Work Phone: > 60 Normal [facility] [address] DO Work Phone: Comment on above: GFR estimated refere nce range: According to KDOQI guidelines, <60 ml/min/1.73m2 is sufficient to diagnose a patient with chronic kidney disease. 59\S\59 Normal [facility] Work Phone: 0.95\S\0.95 Normal 0.44-1.03 [facility] [address] DO Work Phone: 16\S\16 Normal 9-23 [facility] DO Work Phone: 118\S\118 above high threshold 70-100 [facility] DO Work Phone: Comment on above: Random Glucose Refer ence Range is dependent on time and content of last meal. Glucose of more than 200 mg/dL in a nonstressed, ambulatory subject supports the diagnosis of Diabetes Mellitus. ADA recommended reference range Phosphate [Mass/volume] in S jazzy or PlasmaOrdered By: Zaina Leigh on 05-31-2022 Phosphate [Mass/Vol] 4.3 mg/dL 2.5-4.6 [facility] Platelet mean volume Auto (B ld) [Entitic vol]Ordered By: Zaina Leigh on 05-31-2022 Platelet mean volume (Bld) [Entitic vol] 8.4 fL 6.3-10.7 [facility] Platelets Auto (Bld) [#/Vol] Ordered By: Zaina Leigh on 05-31-2022 Platelets (Bld) [#/Vol] 200 10*3/uL 150-450 [facility] Protein Auto test strip (U) [Mass/Vol]Ordered By: Zaina Leigh on 05-31-2022 Protein (U) [Mass/Vol] 30 mg/dL Negative Fi [facility] Protein [Mass/volume] in Uri neOrdered By: Zaina Leigh on 05-31-2022 Protein (U) [Mass/Vol] 44 mg/dL 0-9 Fi [facility] RBC Auto (Bld) [#/Vol]Ordere d By: Zaina Leigh on 05-31-2022 RBC (Bld) [#/Vol] 3.63 10*6/uL 3.60-5.00 [facility] Serum or plasma calcium laura urement (mass/volume)Ordered By: Zaina Leigh on 05-31-2022 Calcium [Mass/Vol] 8.8 mg/dL 8.2-10.2 [facility] Serum or plasma chloride beni surement (moles/volume)Ordered By: Zaina Leigh on 05-31-2022 Chloride [Moles/Vol] 105 mmol/L 95-114 [facility] Serum or plasma glucose laura urement (mass/volume)Ordered By: Zaina Leigh on 05-31-2022 Glucose [Mass/Vol] 113 mg/dL 70-100 [facility] Comment on above: ADA recommended refe rence range Random Glucose Reference Range is dependent on time and content of last meal. Glucose of more than 200 mg/dL in a nonstressed, ambulatory subject supports the diagnosis of Diabetes Mellitus. Serum or plasma intact parat hyroid hormone measurement (mass/volume)Ordered By: Zaina Leigh on 05-31-2022 Parathyrin.intact [Mass/Vol] 38.8 pg/mL 12 [facility] Serum or plasma potassium me asurement (moles/volume)Ordered By: Zaina Leigh on 05-31-2022 Potassium [Moles/Vol] 3.8 mmol/L 3.5-5.1 [facility] Serum or plasma sodium measu rement (moles/volume)Ordered By: Zaina Leigh on 05-31-2022 Sodium [Moles/Vol] 137 mmol/L 136-146 [facility] Serum or plasma total carbon dioxide measurement (moles/volume)Ordered By: Zaina Leigh on 05-31-2022 CO2 [Moles/Vol] 24.1 mmol/L 22.0-30.0 [facility] Serum or plasma urea nitroge n measurement (mass/volume)Ordered By: Zaina Leigh on 05-31-2022 Urea nitrogen [Mass/Vol] 16 mg/dL 9-23 [facility] Serum or plasma uric acid me asurement (mass/volume)Ordered By: Zaina Leigh on 05-31-2022 Urate [Mass/Vol] 5.0 mg/dL 2.6-7.2 [facility] Squamous epithelial cells de tection in urine sediment by light microscopyOrdered By: Zaina Leigh on 05-31-2022 Epithelial cells.squamous LM Ql (Urine sed) 5-9 [HPF] 0-2 [facility] Urine appearanceOrdered By: Zaina Leigh on 05-31-2022 Appearance (U) Clear Clear [facility] Urine bacteria detection by automated methodOrdered By: Zaina Leigh on 05-31-2022 Bacteria Auto Ql (U) None seen None Seen [facility] Urine colorOrdered By: Zaina Leigh on 05-31-2022 Color (U) Yellow Yellow [facility] Urine glucose measurement by automated test strip (mass/volume)Ordered By: Zaina Leigh on 05-31-2022 Glucose Auto test strip (U) [Mass/Vol] >=1000 mg/dL Normal [facility] Urine hemoglobin detection b y automated test stripOrdered By: Zaina Leigh on 05-31-2022 Hemoglobin Auto test strip Ql (U) 2+ Negative [facility] Urine leukocyte esterase det ection by automated test stripOrdered By: Zaina Leigh on 05-31-2022 Leukocyte esterase Auto test strip Ql (U) 2+ Negative [facility] Urine nitrite detection by a utomated test stripOrdered By: Zaina Leigh on 05-31-2022 Nitrite Auto test strip Ql (U) Negative Negative [facility] Urine protein/creatinine rat ioOrdered By: Zaina Leigh on 05-31-2022 Protein/Creatinine (U) [Ratio] 494 mg/g{Cre} 0-200 [facility] Urobilinogen Auto test strip (U) [Mass/Vol]Ordered By: Zaina Leigh on 05-31-2022 Urobilinogen (U) [Mass/Vol] Normal mg/dL Normal [facility] WBC Auto (Bld) [#/Vol]Ordere d By: Zaina Leigh on 05-31-2022 WBC (Bld) [#/Vol] 9.4 10*3/uL 3.8-11.6 [facility] Yeast detection in urine sed iment by light microscopyOrdered By: Zaina Leigh on 05-31-2022 Yeast LM Ql (Urine sed) N/A [facility] pH Auto test strip (U)Ordere d By: Zaina Leigh on 05-31-2022 pH (U) 1.020 [pH] 1.001-1.030 [facility] pH (U) 5.5 [pH] 5.0-9.0 [facility] A1C HEMOGLOBINon 05-24-2022 HbA1c (Bld) [Mass fraction] 6.5 % 79 Group Other Glucose - FINGER STICKon Glucose [Mass/Vol] 147 mg/dL 79 Group Other HbA1c (Bld) [Mass fraction]o n 05-24-2022 A1C HEMOGLOBIN SERPs Other A1C HEMOGLOBINon 02-21-2022 HbA1c (Bld) [Mass fraction] 6.7 % 79 Group Other Glucose - FINGER STICKon Glucose [Mass/Vol] 207 mg/dL 79 Group Other HbA1c (Bld) [Mass fraction]o n 02-21-2022 A1C HEMOGLOBIN SERPs Other Office Visit (Cardiology)on 02-14-2022 Follow-up visit Diagnoses/Problems Assessed CAD, multiple vessel (414.00) (I25.10) Chest pain (786.50) (R07.9) Essential hypertension, benign (401.1) (I10) Hyperlipidemia (272.4) (E78.5) Ischemic cardiomyopathy (414.8) (I25.5) Orthostatic hypotension (458.0) (I95.1) SOB (shortness of breath) on exertion (786.05) (R06.02) 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,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) Class 1 obesity with body mass index (BMI) of 32.0 to 32.9 in adult (278.00,V85.32) (E66.9,Z68.32) Never a smoker Diabetes mellitus (250.00) (E11.9) Orders CAD, multiple vessel, Essential hypertension, benign, Ischemic cardiomyopathy Creatine Kinase, Level; Status:Active - Retrospective Authorization; Requested for:14Feb2022; Class 1 obesity with body mass index (BMI) of 32.0 to 32.9 in adult Healthy Weight Tips; Status:Complete - Retrospective Authorization; Done: [id number] Diabetes mellitus, Essential hypertension, benign, Ischemic cardiomyopathy Basic Metabolic Panel; Status:Active - Retrospective Authorization; Requested for:[id number]; Orthostatic hypotension Start: Midodrine HCl - 5 MG Oral Tablet; TAKE 1 TABLET 3 TIMES DAILY SocHx: Never a smoker Tobacco Use Screening; Status:Complete; Done: [id number] Unlinked Stop: Midodrine HCl - 2.5 MG Oral Tablet Stop: Potassium Chloride Irene ER 10 MEQ Oral Tablet Extended Release Patient Instructions By signing my name below, ISheree LPN, Scribe, attest that this documentation has been prepared under the direction and in the presence of Dr. Az Hayes MD. All medical record entries made by the Scribe were at my direction and personally dictated by me. I have reviewed the chart and agree that the record accurately reflects my personal performance of the history, physical exam, discussion and plan. Please bring all medicines, vitamins, and herbal supplements with you when you come to the office. Prescriptions will not be filled unless you are compliant with your follow up appointments or have a follow up appointment scheduled as per instruction of your physician. Refills should be requested at the time of your visit. Follow up in 6 months Chief Complaint ELIZABETH MANRIQUE is being seen for a 6 month follow-up of. History of Present Illness Here for follow-up to management for coronary artery disease prior bypass surgery, chronic orthostatic hypotension, ischemic cardiomyopathy. Since last time I saw her she reports she was in the hospital for dehydration and elevated total CK and possible rhabdomyolysis. Apparently she had some diarrhea and was taking her diuretics. She report her diuretics were discontinued but continues to take potassium. Her only complaint is continued debilitating symptoms of orthostatic hypotension. She denies chest pain ASSESSMENT: 1. Coronary artery disease with with bypass surgery back in 2017. She described symptoms of shortness of breath. No chest pain. Previous testing noted and reviewed with patient 2. Chronic orthostatic hypotension due to autonomic diabetic neuropathy 3. Ischemic cardiomyopathy, improved. MUGA scan showed ejection fraction of 40-45 %. 4. INTOLERANCE TO MARY INHIBITOR DUE TO CHRONIC ORTHOSTATIC HYPOTENSION. 5. History of hypertension, controlled with component of orthostatic hypotension due to autonomic neuropathy. She takes midodrine. 6. Shortness of breath with the above factors, seems to be stable with functional class II. 7. Obesity with no weight changes. 8. Diabetes mellitus she reports has not been very well-controlled 9. Intermittent edema 10. Hyperlipidemia with improvement of her triglyceride 11. Recent hospitalization for dehydration and rhabdomyolysis according to her RECOMMENDATIONS: 1. Advised the patient to try to increase her midodrine to 5 mg 3 times daily 2. I suggested to her to remain on the same medication, 3. Patient was consulted on losing weight, exercise and dietary modification and was encouraged to use her stationary bike. 4. We'll see her back and 6 month in follow-up or earlier if the need arise 5. Continue to encourage her to optimize her diabetic control 6. Continue to encourage the patient to maintain high fluid intake, wear compression stocking and use Midrin as needed 7. Try to retrieve her recent hospitalization record 8. We will do a CPK and BMP Surgical History Problems History of Carpal tunnel surgery Denied: History of Colonoscopy History of Coronary artery bypass graft 12/07/16 History of Tonsillectomy History of Total hysterectomy abdominal Current Meds Medication NameInstruction Apidra 100 UNIT/ML Injection SolutionINJECT SUBCUTANEOUSLY DIRECTED. Atorvastatin Calcium 80 MG Oral TabletTAKE 1 TABLET AT BEDTIME. Carvedilol 3.125 MG Oral TabletTake 1 tablet daily Clopidogrel Bisulfate 75 MG Oral TabletTAKE 1 TABLET DAILY. Digox 125 MCG Oral TabletTAKE 1 TABLET DAILY. Famotidine 40 MG Oral TabletTAKE 0.5 TABLET Twice daily hydrOXYzine Pamoate 50 MG Oral Capsule (more content not included)... Normal [facility] PHQ-2 VITALSon 02-14-2022 Adult depression screening assessment Yes [facility] 250 DO Work Phone: Fall risk assessment c) Not medically indicated [facility] 250 DO Work Phone: Tobacco use status [facility] b) No M [facility] 250 DO Work Phone: PHQ-2 VITALS Yes [facility] o [facility] 250 DO Work Phone: PHQ-2 VITALS 3-Nearly every day [facility] 250 DO Work Phone: PHQ-2 VITALS 2-More than half the days [facility] 250 DO Work Phone: PHQ-2 VITALS 0-Not at all [facility] 250 DO Work Phone: PHQ-2 VITALS Extremely Difficult [facility] 250 DO Work Phone: XR Chest 2 Views*on 12-13-19 22 XR Chest 2 Views* FINDINGS: No acute cardiac or pulmonary disease is identified. No worrisome mass lesions or infiltrates are seen. No pulmonary edema or pneumothorax is present. Cardiac silhouette size is normal. Skeletal structures are normal. Intact sternotomy wires. IMPRESSION: No acute disease Report reported and signed by Cliff Grissom on 12/14/2021 0700 Normal [facility] [employer] A1C HEMOGLOBINon 11-08-2021 HbA1c (Bld) [Mass fraction] 6.5 % [facility] happin! Other Glucose - FINGER [facility]ICKon Glucose [Mass/Vol] 240 mg/dL [facility] happin! Other HbA1c (Bld) [Mass fraction]o n 11-08-2021 A1C HEMOGLOBIN [facility] happin! Other Tobacco Screening.on 021 Tobacco use status [facility] b) No M [facility] 250 DO Work Phone: [facility] CARDIAC STRESS/REST INJE CTIONon 05-12-2020 [facility] CARDIAC STRESS/REST INJECTION Patient Name: ELIZABETH MANRIQUE STUDY: MYOCARDIAL PERFUSION STRESS TEST WITH LEXISCAN Performing facility: [facility], [address] [place] [address], [address] [place] [id number] [facility] Provider: Az Hayes MD PCP: Dr. Karen Gustafson Supervising provider: Kirt Palacio DO, [facility] INDICATION: CAD; Chest Pain; HISTORY: Gender: F; Age: 65 y/o ; Height: 160.02 cm; Weight: 83.8451404 kg. High Cholesterol; CAD; Diabetes; HTN; Arrhythmias; Chest Pain; Fatigue; Denies smoking. CABG on 2017. COMPARISON: No comparison. ACCESSION NUMBER(S): [id number]; [id number]; [id number] ORDERING CLINICIAN: AZ HAYES TECHNIQUE: ONE DAY protocol. Stress injection: Date:05/12/2020, 29.4 mCi of Myoview IV 20 seconds after rapid injection of Lexiscan. Rest injection: Date: 05/12/2020, 11.7 mCi of Myoview IV at rest. The patient had a rapid injection of 0.4 mg of Lexiscan IV over 10 seconds. Imaging was performed by gated tomographic technique. Reason for Lexiscan: dizziness/unsteady/f all risk STRESS TEST DATA: Resting heart rate was 68 BPM. Resting blood pressure was 150/94 mmHg. Peak blood pressure was 142/88 mmHg. Peak heart rate was 86 BPM. TEST TERMINATED DUE TO: Protocol completed FINDINGS: STRESS TEST RESULTS: Resting electrocardiogram revealed normal sinus rhythm with diffuse repolarization abnormalities and evidence of inferolateral myocardial infarction. There were no significant iECG changes from baseline, no arrhythmias were induced by Lexiscan administration. The patient did not have chest pains/symptoms during procedure. There was a normal recovery phase. IMAGING RESULTS: Image quality was good. Rest and stress tomographic images were reviewed and revealed abnormal perfusion. There was no evidence of reversible perfusion abnormalities on the imaging study suggestive of ischemia. There was evidence large fixed inferolateral perfusion abnormality consistent with myocardial infarction with minimal jose-infarct ischemia. There was no left ventricular dilatation with stress. Overall left ventricular systolic function appeared to be abnormal. There were regional wall motion abnormalities with mild inferolateral hypokinesis. LVEF was 50%. TID is 1.01 and is normal. There was no evidence of attenuation artifact. IMPRESSION: Abnormal Lexiscan Myoview cardiac perfusion stress test. No myocardial ischemia by perfusion imaging. Moderate size inferolateral myocardial infarction by perfusion imaging. Abnormal left ventricular systolic function. Left ventricular ejection fraction 50 %. No previous studies are available for comparison. Electronically signed by: ABRAHAM INIGUEZ MD [facility] CNOVon 11-13-2019 CNOV Office Visit (EXP[facility]) ELIZABETH MANRIQUE ([id number]) 1955 F Date Time Provider Department 11/13/19 3:25 PM [facility] COM EXP[facility] During your visit today, we recorded the following information about you: Referring Provider: SELF [200] Allergies As of Date: 11/13/2019 (Not on File) Date Reviewed: Never Reviewed Primary Visit Diagnosis:Flu vaccine need [Z23] Order(s):INFLUENZA VACCINE QUADRIVALENT AGE 3 YRS PLUS + IM [[id number]] Order #: [id number] Prescriptions as of 11/13/2019 Sig: MIDODRINE 2.5 MG TABLET Take 1 tablet by mouth three * BREO ELLIPTA 200 MCG-25 MCG/D* Inhale 1 Inhalation as instru* ALBUTEROL SULFATE HFA 90 MCG/* Inhale 2 Puffs as instructed. NITROGLYCERIN 0.4 MG SUBLINGU* Dissolve 1 tablet under the t* FUROSEMIDE 20 MG TABLET Take 1 tablet by mouth once d* LINAGLIPTIN 5 MG TABLET Take 1 tablet by mouth once d* ATORVASTATIN 80 MG TABLET Take 1 tablet by mouth once d* DIGOXIN 125 MCG (0.125 MG) TA* Take 1 tablet by mouth once d* CARVEDILOL 3.125 MG TABLET Take 1 tablet by mouth twice * JARDIANCE 25 MG TABLET Take 1 tablet by mouth daily * TOPIRAMATE 50 MG TABLET Take 1 tablet by mouth twice * CLOPIDOGREL 75 MG TABLET Take 1 tablet by mouth once d* Problem List As Of Date: 11/13/2019 (None) Encounter Status:Closed by GOSIA HUSTON PA-C on 11/14/19 Normal [facility] Office Visit ([facility]) ELIZABETH MANRIQUE ([id number]) 1955 F Date Time Provider Department 11/13/19 2:30 PM RAVINDER RAMIREZ During your visit today, we recorded the following information about you: Pulse Respiration Blood pressure Weight 68/minute 16/minute 129/63 86.2 kg Ravinder Ramirez MD 11/22/2019 3:37 PM Signed Referring Or Consulting Physician: Nena Wick DO [address] [place] [id number] CHIEF COMPLAINT: pain in my neck and shoulders, lower back and the rest of the body HPI: This is a 64 year old female here for evaluation of pain that began 10 years ago following no particular inciting event. At this point, the pain is located in the areas detailed above (see cc). The patient describes the pain as aching, sharp and soreness and is a 8/10 in severity. It is constant and severe. The pain is exacerbated by movement and is mitigated by nothing. In the past, the patient has been treated with tramadol . The patient is currently taking nothing for pain. In the past, the patient has been treated with the following interventional pain procedures: 1. Dr Ector Ayoub: injections, no relief Relevant [place] records were reviewed. Adverse Reaction to Medication: yes Opioid Agreement: No Receiving Disability Income: no Last Date/Time Patient had Opioid Medication: Imaging Studies: none Is the patient receiving analgesia/pain relief from the current medications? (-) Has the current medication improved activities of daily living? (-) Have the current medications been associated with any adverse events? (-) Has the patient displayed any aberrant drug-related behaviors? (-) Illicit drug use? (-) Patient denies loss of bowel or bladder control, unintentional weight loss, h/o malignancy, fevers/chills/night sweats. PMH: dm2, cad PSH: none Social History Tobacco Use - Smoking status: Never Smoker - Smokeless tobacco: Never Used Substance Use Topics - Alcohol use: Not Currently - Drug use: Never FH: Patient denies a family history of the current chief complaint. Allergy: nkda Current Outpatient Medications Medication Sig - midodrine (PROAMATINE) 2.5 mg tablet Take 1 tablet by mouth three times daily. - fluticasone-vilanter ol (BREO ELLIPTA) 200-25 mcg/dose inhaler Inhale 1 Inhalation as instructed once daily. - albuterol HFA (VENTOLIN HFA) 90 mcg/actuation inhaler Inhale 2 Puffs as instructed. - nitroglycerin sublingual (NITROQUICK) 0.4 mg SL tablet Dissolve 1 tablet under the tongue as needed. DISSOLVE ON TONGUE FOR CHEST PAIN. IF NO PAIN RELIEF, CALL 911 - furosemide (LASIX) 20 mg tablet Take 1 tablet by mouth once daily. - linaGLIPtin (TRADJENTA) 5 mg tab Take 1 tablet by mouth once daily. - atorvastatin (LIPITOR) 80 mg tablet Take 1 tablet by mouth once daily. - digoxin (LANOXIN) 125 mcg (0.125 mg) tablet Take 1 tablet by mouth once daily. - carvedilol (COREG) 3.125 mg tablet Take 1 tablet by mouth twice daily. - potassium chloride (K-TAB) 10 mEq tablet Take 1 tablet by mouth once daily. - cyproheptadine (PERIACTIN) 4 mg tablet Take 1 tablet by mouth three times daily as needed. - empagliflozin (JARDIANCE) 25 mg tablet Take 1 tablet by mouth daily with breakfast. - topiramate (TOPAMAX) 50 mg tablet Take 1 tablet by mouth twice daily. - famotidine (PEPCID) 20 mg tablet Take 1 tablet by mouth once daily. - clopidogrel (PLAVIX) 75 mg tablet Take 1 tablet by mouth once daily. No current facility-administere d medications for this visit. REVIEW OF SYSTEMS: GENERAL: weight loss (-), malaise(+), fevers (-) HEENT: thrush(-), epistaxis(-) NECK: Negative for neck swelling. RESPIRATORY: Negative for cough, wheezing or shortness of breath (-). CARDIOVASCULAR: chest pain(-), leg swelling(-) or palpitations(-) GI: abdominal discomfort(+), blood in stools/melena/change in bowel habits(-). MUSCULOSKELETAL: joint pain(-), swelling(-), back pain(+) , muscle pain(+). SKIN: (-) for lesions, rash, and itching. PSYCH: sleep disturbance(+), mood disorder(-), recent psychosocial stressors(-). HEMATOLOGY/LYMPHOLOG Y: Negative for prolonged bleeding, easy bruising, or swollen nodes (-) NEURO: Headaches(-), syncope(-), paralysis(-), seizures(-), tremors (-) All other reviewed and negative other than HPI. Data personally verified by physician. Ravinder Ramirez MD Scribe attestation: ILois (November 13 2019 3:32 PM) attest that this documentation has been prepared under the direction and in the presence of Ravinder Ramirez MD Electronically Signed: Lois Varela November 13, 2019 3:32 PM Physician attestation: IRavinder MD, personally performed the services described in this documentation. All medical record entries made by the scribe were at my direction and in my presence. Furthermore, I personally performed the physical exam and documented it as such, and agree that the record reflects my personal performance. Electronically Signed: Ravinder Ramirez MD November 13, 2019 3:32 PM OBJECTIVE: VS: BP 129/63 Pulse 68 Resp 16 Wt 86.2 kg (190 lb) PHYSICAL EXAMINATION: GENERAL: Well appearing, in no acute distress PSYCH: Mood and affect is appropriate. Awake, alert, and oriented x 3 SKIN: Skin color, texture, turgor normal, no rashes or lesions HEENT: Normocephalic, atraumatic. PERRLA. RESP: Respirations are unlabored CARD: Regular rate. Cap refill <2s. Extremities pink and well perfused at nailbed GI: Abdomen soft and non-tender MSK: Bilateral upper and lower extremity strength is normal and symmetric. No atrophy or tone abnormalities are noted Cervical: (+)pain to palpation over the cervical paraspinal muscles. Spurling is (-). (-)pain with neck flexion, extension or rotation. Rotation is full on right and left. Axial Loading Test negative, Bridges's sign negative. No obvious deformity or signs of trauma. Normal cervical lordotic curve and full flexion and extension of cervical spine. Lumbar: Straight leg raising in the sitting position is (-) for radicular pain. (+)pain to palpation lumbar paraspinal muscles. Facet loading is (+) bilaterally. (-) pain to palpation over the PSIS, sacroiliac joint provocative maneuvers are (-) for pain reproduction bilaterally. Extremities: Peripheral joint ROM is full and pain free without obvious instability or laxity in all four extremities. No deformities, edema, or skin discoloration. Good capillary refill. Gait: Gait is antalgic NEURO: Bilateral upper and lower extremity coordination are intact. Muscle stretch reflexes are physiologic and symmetric. Plantar response are downgoing. +loss of sensation is noted. 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 Of this, greater than 50% of this was spent in the presence of the patient for purposes of education and counseling regarding the diagnosis and treatment of pain. I answered the patient's questions regarding this. -We did make the patient aware that any diagnostic testing results are best discussed in person so we can provide a clear explanation of their significance. -I discussed healthy habits, lifestyle changes and physical activity as well as disease prevention/maintenan ce, including the impact of tobacco/illicit drugs on pain and its treatment. -Patient is in agreement with the above and verbalized understanding. It will be communicated with the referring or consulting physician above via electronic record, fax, or mail. 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 NITROGLYCERIN 0.4 MG SUBLINGU* Dissolve 1 tablet under the t* FUROSEMIDE 20 MG TABLET Take 1 tablet by mouth once d* LINAGLIPTIN 5 MG TABLET Take 1 tablet by mouth once d* ATORVASTATIN 80 MG TABLET Take 1 tablet by mouth once d* DIGOXIN 125 MCG (0.125 MG) TA* Take 1 tablet by mouth once d* CARVEDILOL 3.125 MG TABLET Take 1 tablet by mouth twice * POTASSIUM CHLORIDE ER 10 MEQ * Take 1 tablet by mouth once d* CYPROHEPTADINE 4 MG TABLET Take 1 tablet by mouth three * JARDIANCE 25 MG TABLET Take 1 tablet by mouth daily * TOPIRAMATE 50 MG TABLET Take 1 tablet by mouth twice * FAMOTIDINE 20 MG TABLET Take 1 tablet by mouth once d* CLOPIDOGREL 75 MG TABLET Take 1 tablet by mouth once d* Problem List As Of Date: 11/13/2019 (None) Encounter Status:Closed by RAVINDER RAMIREZ MD on 11/22/19 [facility] PROGRESSon 11-13-2019 PROGRESS HNO ID: [id number] Author: Ravinder Ramirez Service: ? Author Type: Physician Type: Progress Notes Filed: 11/22/2019 3:37 PM Note Text: Referring Or Consulting Physician: Nena Wick DO [address] [facility] [address] [place] [phone] CHIEF COMPLAINT: pain in my neck and shoulders, lower back and the rest of the body HPI: This is a 64 year old female here for evaluation of pain that began 10 years ago following no particular inciting event. At this point, the pain is located in the areas detailed above (see cc). The patient describes the pain as aching, sharp and soreness and is a 8/10 in severity. It is constant and severe. The pain is exacerbated by movement and is mitigated by nothing. In the past, the patient has been treated with tramadol . The patient is currently taking nothing for pain. In the past, the patient has been treated with the following interventional pain procedures: 1. Dr Ector Ayoub: injections, no relief Relevant [place] records were reviewed. Adverse Reaction to Medication: yes Opioid Agreement: No Receiving Disability Income: no Last Date/Time Patient had Opioid Medication: Imaging Studies: none Is the patient receiving analgesia/pain relief from the current medications? (-) Has the current medication improved activities of daily living? (-) Have the current medications been associated with any adverse events? (-) Has the patient displayed any aberrant drug-related behaviors? (-) Illicit drug use? (-) Patient denies loss of bowel or bladder control, unintentional weight loss, h/o malignancy, fevers/chills/night sweats. PMH: dm2, cad PSH: none Social History Tobacco Use - Smoking status: Never Smoker - Smokeless tobacco: Never Used Substance Use Topics - Alcohol use: Not Currently - Drug use: Never FH: Patient denies a family history of the current chief complaint. Allergy: nkda Current Outpatient Medications Medication Sig - midodrine (PROAMATINE) 2.5 mg tablet Take 1 tablet by mouth three times daily. - fluticasone-vilanter ol (BREO ELLIPTA) 200-25 mcg/dose inhaler Inhale 1 Inhalation as instructed once daily. - albuterol HFA (VENTOLIN HFA) 90 mcg/actuation inhaler Inhale 2 Puffs as instructed. - nitroglycerin sublingual (NITROQUICK) 0.4 mg SL tablet Dissolve 1 tablet under the tongue as needed. DISSOLVE ON TONGUE FOR CHEST PAIN. IF NO PAIN RELIEF, CALL 911 - furosemide (LASIX) 20 mg tablet Take 1 tablet by mouth once daily. - linaGLIPtin (TRADJENTA) 5 mg tab Take 1 tablet by mouth once daily. - atorvastatin (LIPITOR) 80 mg tablet Take 1 tablet by mouth once daily. - digoxin (LANOXIN) 125 mcg (0.125 mg) tablet Take 1 tablet by mouth once daily. - carvedilol (COREG) 3.125 mg tablet Take 1 tablet by mouth twice daily. - potassium chloride (K-TAB) 10 mEq tablet Take 1 tablet by mouth once daily. - cyproheptadine (PERIACTIN) 4 mg tablet Take 1 tablet by mouth three times daily as needed. - empagliflozin (JARDIANCE) 25 mg tablet Take 1 tablet by mouth daily with breakfast. - topiramate (TOPAMAX) 50 mg tablet Take 1 tablet by mouth twice daily. - famotidine (PEPCID) 20 mg tablet Take 1 tablet by mouth once daily. - clopidogrel (PLAVIX) 75 mg tablet Take 1 tablet by mouth once daily. No current facility-administere d medications for this visit. REVIEW OF SYSTEMS: GENERAL: weight loss (-), malaise(+), fevers (-) HEENT: thrush(-), epistaxis(-) NECK: Negative for neck swelling. RESPIRATORY: Negative for cough, wheezing or shortness of breath (-). CARDIOVASCULAR: chest pain(-), leg swelling(-) or palpitations(-) GI: abdominal discomfort(+), blood in stools/melena/change in bowel habits(-). MUSCULOSKELETAL: joint pain(-), swelling(-), back pain(+) , muscle pain(+). SKIN: (-) for lesions, rash, and itching. PSYCH: sleep disturbance(+), mood disorder(-), recent psychosocial stressors(-). HEMATOLOGY/LYMPHOLOG Y: Negative for prolonged bleeding, easy bruising, or swollen nodes (-) NEURO: Headaches(-), syncope(-), paralysis(-), seizures(-), tremors (-) All other reviewed and negative other than HPI. Data personally verified by physician. Ravinder Ramirez MD Scribe attestation: Lois Celeste (November 13 2019 3:32 PM) attest that this documentation has been prepared under the direction and in the presence of Ravinder Ramirez MD Electronically Signed: Lois Varela November 13, 2019 3:32 PM Physician attestation: Ravinder Celeste MD, personally performed the services described in this documentation. All medical record entries made by the scribe were at my direction and in my presence. Furthermore, I personally performed the physical exam and documented it as such, and agree that the record reflects my personal performance. Electronically Signed: Ravinder Ramirez MD November 13, 2019 3:32 PM OBJECTIVE: VS: BP 129/63 Pulse 68 Resp 16 Wt 86.2 kg (190 lb) PHYSICAL EXAMINATION: GENERAL: Well appearing, in no acute distress PSYCH: Mood and affect is appropriate. Awake, alert, and oriented x 3 SKIN: Skin color, texture, turgor normal, no rashes or lesions HEENT: Normocephalic, atraumatic. PERRLA. RESP: Respirations are unlabored CARD: Regular rate. Cap refill <2s. Extremities pink and well perfused at nailbed GI: Abdomen soft and non-tender MSK: Bilateral upper and lower extremity strength is normal and symmetric. No atrophy or tone abnormalities are noted Cervical: (+)pain to palpation over the cervical paraspinal muscles. Spurling is (-). (-)pain with neck flexion, extension or rotation. Rotation is full on right and left. Axial Loading Test negative, Bridges's sign negative. No obvious deformity or signs of trauma. Normal cervical lordotic curve and full flexion and extension of cervical spine. Lumbar: Straight leg raising in the sitting position is (-) for radicular pain. (+)pain to palpation lumbar paraspinal muscles. Facet loading is (+) bilaterally. (-) pain to palpation over the PSIS, sacroiliac joint provocative maneuvers are (-) for pain reproduction bilaterally. Extremities: Peripheral joint ROM is full and pain free without obvious instability or laxity in all four extremities. No deformities, edema, or skin discoloration. Good capillary refill. Gait: Gait is antalgic NEURO: Bilateral upper and lower extremity coordination are intact. Muscle stretch reflexes are physiologic and symmetric. Plantar response are downgoing. +loss of sensation is noted. 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 Of this, greater than 50% of this was spent in the presence of the patient for purposes of education and counseling regarding the diagnosis and treatment of pain. I answered the patient's questions regarding this. -We did make the patient aware that any diagnostic testing results are best discussed in person so we can provide a clear explanation of their significance. -I discussed healthy habits, lifestyle changes and physical activity as well as disease prevention/maintenan ce, including the impact of tobacco/illicit drugs on pain and its treatment. -Patient is in agreement with the above and verbalized understanding. It will be communicated with the referring or consulting physician above via electronic record, fax, or mail. Ravinder Ramirez MD November 13, 2019 Normal [facility] Vital Signs Date Time Vital Sign Value Performing Clinician Facility 11-13-2023 13:00-0500 Body height 160.02 cm Angela Aldrich [facility] 11-13-2023 13:00-0500 Body mass index (BMI) [Ratio] 31.42 kg/m2 Angela Aldrich [facility] 11-13-2023 13:00-0500 Body weight 80.47 kg Angela Scally Other [facility] Other 11-13-2023 13:00-0500 Diastolic blood pressure 65 mm[Hg] Angela Scally Other [facility] Other 11-13-2023 13:00-0500 Respiratory rate 18 /min Angela Scally Other [facility] Other 11-13-2023 13:00-0500 SaO2% (BldA) [Mass fraction] 97 % Angela Scally Other [facility] Other 11-13-2023 13:00-0500 Systolic blood pressure 105 mm[Hg] Angela Scally Other [facility] Other 10-07-2023 13:53-0500 Diastolic blood pressure 66 mm[Hg] Az Hayes MD Work Phone: [facility] 10-07-2023 13:53-0500 Heart rate 78 /min Az Hayes MD Work Phone: [facility] 10-07-2023 13:53-0500 Systolic blood pressure 118 mm[Hg] Az Hayes MD Work Phone: [facility] 08-06-2023 13:00-0400 Body height 160.02 cm Angela Scally Other [facility] Other 08-06-2023 13:00-0400 Body mass index (BMI) [Ratio] 31.32 kg/m2 Angela Scally Other [facility] Other 08-06-2023 13:00-0400 Body weight 80.2 kg Angela Scally Other [facility] Other 08-06-2023 13:00-0400 Diastolic blood pressure 77 mm[Hg] Angela Scally Other [facility] Other 08-06-2023 13:00-0400 Respiratory rate 18 /min Angela Scally Other [facility] Other 08-06-2023 13:00-0400 SaO2% (BldA) [Mass fraction] 98 % Angela Scally Other [facility] Other 08-06-2023 13:00-0400 Systolic blood pressure 132 mm[Hg] Angela Scally Other [facility] Other 04-30-2023 14:00-0400 Body height 160.02 cm Angela Scally Other [facility] Other 04-30-2023 14:00-0400 Body mass index (BMI) [Ratio] 30.94 kg/m2 Angela Scally Other [facility] Other 04-30-2023 14:00-0400 Body weight 79.24 kg Angela Scally Other [facility] Other 04-30-2023 14:00-0400 Diastolic blood pressure 84 mm[Hg] Angela Scally Other [facility] Other 04-30-2023 14:00-0400 Respiratory rate 18 /min Angela Scally Other [facility] Other 04-30-2023 14:00-0400 SaO2% (BldA) [Mass fraction] 96 % Angela Scally Other [facility] Other 04-30-2023 14:00-0400 Systolic blood pressure 137 mm[Hg] Angela Scally Other [facility] Other 01-22-2023 15:30-0400 Body height 160.02 cm Angela Scally Other [facility] Other 01-22-2023 15:30-0400 Body mass index (BMI) [Ratio] 30.41 kg/m2 Angela Scally Other [facility] Other 01-22-2023 15:30-0400 Body weight 77.88 kg Angela Scally Other [facility] Other 01-22-2023 15:30-0400 Diastolic blood pressure 71 mm[Hg] Angela Scally Other [facility] Other 01-22-2023 15:30-0400 Respiratory rate 18 /min Angela Scally Other [facility] Other 01-22-2023 15:30-0400 SaO2% (BldA) [Mass fraction] 97 % Angela Scally Other [facility] Other 01-22-2023 15:30-0400 Systolic blood pressure 125 mm[Hg] Angela Scally Other [facility] Other 11-15-2022 14:38-0500 Blood Pressure Location [facility] TO [facility] 11-15-2022 14:38-0500 Diastolic blood pressure 70 mm[Hg] [facility] TO [facility] 11-15-2022 14:38-0500 Heart rate 69 /min [facility] TO [facility] 11-15-2022 14:38-0500 Systolic blood pressure 138 mm[Hg] [facility] TO [facility] 09-24-2022 14:08-0500 Body height 160.02 cm Kathrine K Rumschlag Work Phone: [facility] DO Work Phone: 09-24-2022 14:08-0500 Body mass index (BMI) [Ratio] 31.53 kg/m2 Kathrine K Rumschlag Work Phone: [facility] DO Work Phone: 09-24-2022 14:08-0500 Body surface area Derived from formula 1.84 m2 Kathrine K Rumschlag Work Phone: [facility] DO Work Phone: 09-24-2022 14:08-0500 Body weight 80.74 kg Kathrine K Rumschlag Work Phone: [facility] [facility] DO Work Phone: 09-24-2022 14:08-0500 Diastolic blood pressure 70 mm[Hg] Kathrine K Rumschlag Work Phone: [facility] DO Work Phone: 09-24-2022 14:08-0500 Heart rate 66 /min Kathrine K Rumschlag Work Phone: [facility] DO Work Phone: 09-24-2022 14:08-0500 Systolic blood pressure 128 mm[Hg] Kathrine Gustafson Work Phone: [facility] DO Work Phone: 09-18-2022 12:15-0500 Body height 160.02 cm Angela Scally Other [facility] Other 09-18-2022 12:15-0500 Body mass index (BMI) [Ratio] 31.86 kg/m2 Angela Scally Other [facility] Other 09-18-2022 12:15-0500 Body weight 81.6 kg Angela Scally Other [facility] Other 09-18-2022 12:15-0500 Diastolic blood pressure 84 mm[Hg] Angela Scally Other [facility] Other 09-18-2022 12:15-0500 Respiratory rate 18 /min Angela Scally Other [facility] Other 09-18-2022 12:15-0500 SaO2% (BldA) [Mass fraction] 96 % Angela Scally Other [facility] Other 09-18-2022 12:15-0500 Systolic blood pressure 150 mm[Hg] Angela Scally Other [facility] Other 08-28-2022 16:20-0400 Body height 160.02 cm Zaina Reese Other [facility] Other 08-28-2022 16:20-0400 Body mass index (BMI) [Ratio] 31.92 kg/m2 Zaina Reese Other [facility] Other 08-28-2022 16:20-0400 Body temperature 96.1 [degF] Zaina Reese Other [facility] Other 08-28-2022 16:20-0400 Body weight 81.74 kg Zaina Reese Other [facility] Other 08-28-2022 16:20-0400 Diastolic blood pressure 85 mm[Hg] Zaina Reese Other [facility] Other 08-28-2022 16:20-0400 Respiratory rate 18 /min Zaina Reese Other [facility] Other 08-28-2022 16:20-0400 SaO2% (BldA) [Mass fraction] 97 % Zaina Reese Other [facility] Other 08-28-2022 16:20-0400 Systolic blood pressure 139 mm[Hg] Zaina Reese Other [facility] Other 08-23-2022 09:58-0400 Blood Pressure Location [facility] TO [facility] 08-23-2022 09:58-0400 Diastolic blood pressure 96 mm[Hg] [facility] TO [facility] 08-23-2022 09:58-0400 Heart rate 78 /min [facility] 08-23-2022 09:58-0400 Systolic blood pressure 160 mm[Hg] [facility] TO [facility] 05-24-2022 15:00-0400 Body height 160.02 cm Angela Scally Other [facility] Other 05-24-2022 15:00-0400 Body mass index (BMI) [Ratio] 31.33 kg/m2 Angela Scally Other [facility] Other 05-24-2022 15:00-0400 Body weight 80.24 kg Angela Scally Other [facility] Other 05-24-2022 15:00-0400 Diastolic blood pressure 71 mm[Hg] Angela Scally Other [facility] Other 05-24-2022 15:00-0400 Respiratory rate 18 /min Angela Scally Other [facility] Other 05-24-2022 15:00-0400 SaO2% (BldA) [Mass fraction] 100 % Angela Scally Other [facility] Other 05-24-2022 15:00-0400 Systolic blood pressure 124 mm[Hg] Angela Scally Other [facility] Other 02-21-2022 15:00-0400 Body height 160.02 cm Angela Scally Other [facility] Other 02-21-2022 15:00-0400 Body mass index (BMI) [Ratio] 32.47 kg/m2 Angela Scally Other [facility] Other 02-21-2022 15:00-0400 Body weight 83.14 kg Angelabrandon Campaly Other [facility] [employer] Other 02-21-2022 15:00-0400 Diastolic blood pressure 84 mm[Hg] Angela Scally Other [facility] [employer] Other 02-21-2022 15:00-0400 Respiratory rate 18 /min Angela Scally Other [facility] [employer] Other 02-21-2022 15:00-0400 SaO2% (BldA) [Mass fraction] 98 % Angela Scally Other [facility] [employer] Other 02-21-2022 15:00-0400 Systolic blood pressure 129 mm[Hg] Angela Lokeshly Other [facility] [employer] Other 02-14-2022 16:25-0400 Body height 160.02 cm Kathrine Kimberly Rumschlag Work Phone: [facility] [place] 250 DO Work Phone: 02-14-2022 16:25-0400 Body mass index (BMI) [Ratio] 32.42 kg/m2 Kathrine Kimberly Rumschlag Work Phone: [facility] [place] 250 DO Work Phone: 02-14-2022 16:25-0400 Body surface area Derived from formula 1.86 m2 Kathrine K Rumschlag Work Phone: [employer] 250 DO Work Phone: 02-14-2022 16:25-0400 Body weight 83.01 kg Kathrine K Rumschlag Work Phone: [facility] [place] 250 DO Work Phone: 02-14-2022 16:25-0400 Diastolic blood pressure 60 mm[Hg] Kathrine K Rumschlag Work Phone: [facility] 250 DO Work Phone: 02-14-2022 16:25-0400 Heart rate 78 /min Kathrine K Rumschlag Work Phone: [facility] 250 DO Work Phone: 02-14-2022 16:25-0400 Systolic blood pressure 102 mm[Hg] Kathrine K Rumschlag Work Phone: [facility] 250 DO Work Phone: 02-14-2022 16:25-0400 17 1 Kathrine K Rumschlag Work Phone: [facility] 250 DO Work Phone: Comment on above: PHQ-9 TS 11-08-2021 12:00-0500 Body height 160.02 cm Angela Scally Other [facility] [employer] Other 11-08-2021 12:00-0500 Body mass index (BMI) [Ratio] 33.39 kg/m2 Angela Scally Other [facility] [employer] Other 11-08-2021 12:00-0500 Body weight 85.5 kg Angela Scally Other [facility] [employer] Other 11-08-2021 12:00-0500 Diastolic blood pressure 69 mm[Hg] Angela Scally Other [facility] [employer] Other 11-08-2021 12:00-0500 Respiratory rate 18 /min Angela Scally Other [facility] [employer] Other 11-08-2021 12:00-0500 SaO2% (BldA) [Mass fraction] 98 % Angela Aldrcih Other [facility] [employer] Other 11-08-2021 12:00-0500 Systolic blood pressure 112 mm[Hg] Angela Aldrich Other [facility] [employer] Other 08-17-2021 14:27-0400 Body height 160.02 cm Kathrine Kimberly Renoschlag Work Phone: [employer] 250 DO Work Phone: 08-17-2021 14:27-0400 Body mass index (BMI) [Ratio] 32.59 kg/m2 Kathrine K Rumschlag Work Phone: [employer] 250 DO Work Phone: 08-17-2021 14:27-0400 Body surface area Derived from formula 1.87 m2 Kathrine Kimberly Rumschlag Work Phone: [employer] 250 DO Work Phone: 08-17-2021 14:27-0400 Body weight 83.46 kg Kathrine Kimberly Rumschlag Work Phone: [employer] 250 DO Work Phone: 08-17-2021 14:27-0400 Diastolic blood pressure 60 mm[Hg] Kathrine Kimberly Rumschlag Work Phone: [employer] [facility] 250 DO Work Phone: 08-17-2021 14:27-0400 Heart rate 68 /min Kathrine K Rumschlag Work Phone: [employer] [facility] 250 DO Work Phone: 08-17-2021 14:27-0400 Systolic blood pressure 96 mm[Hg] Kathrine Kimberly Rumschlag Work Phone: [facility] [place] 250 DO Work Phone: 08-03-2021 16:00-0400 Body height 160.02 cm Zaina Reese Other [facility] [employer] Other 08-03-2021 16:00-0400 Body mass index (BMI) [Ratio] 32.52 kg/m2 Zaina Reese Other [facility] [employer] Other 08-03-2021 16:00-0400 Body temperature 96.8 [degF] Zaina Reese Other [facility] [employer] Other 08-03-2021 16:00-0400 Body weight 83.28 kg Zaina Reese Other [facility] [employer] Other 08-03-2021 16:00-0400 Diastolic blood pressure 74 mm[Hg] Zaina Reese Other [facility] [employer] Other 08-03-2021 16:00-0400 Respiratory rate 18 /min Zaina Reese Other [facility] [employer] Other 08-03-2021 16:00-0400 SaO2% (BldA) [Mass fraction] 98 % Zaina Reese Other [facility] [employer] Other 08-03-2021 16:00-0400 Systolic blood pressure 117 mm[Hg] Zaina Reese Other [facility] [employer] Other 07-28-2021 10:55-0400 45 1 Kathrine Gustafson Work Phone: [facility] [place] 250 DO Work Phone: Comment on above: [id number] Encounters Encounter Date Encounter Type Care Provider Facility Start: 11-21-2023 ambulatory KATHRINE JANAY Facilit y:SANJANA Chairez Start: 11-18-2023 End: 11-18-2023 ambulatory Angela Aldrich Other [facility]! Other Start: 11-18-2023 Telephone encounter Angelabrandon Gavir[facility] Start: 11-13-2023 (DM) Diabetes Angela Boss [facility] Start: 11-13-2023 End: 11-13-2023 ambulatory Tona K Mapus Facility:[facility] Start: 10-21-2023 End: 10-21-2023 ambulatory Kathrine Rumschlag Facility:[facility] Start: 10-21-2023 End: 10-21-2023 ambulatory NON STAFF [facility] Work Phone: Start: 10-21-2023 End: 10-21-2023 Patient encounter procedure [facility] Work Phone: Start: 10-07-2023 End: 10-07-2023 ambulatory [facility] Start: 10-07-2023 End: 10-07-2023 Office outpatient visit 25 minutes Az Hayes MD Work Phone: [facility] Comment on above: CAD, multiple vessel (Primary Dx); Chest pain, unspecified type; Essential hypertension, benign; Ischemic cardiomyopathy; Mixed hyperlipidemia; Postoperative atrial fibrillation (CMS/HCC); SOB (shortness of breath) on exertion; Orthostatic hypotension Start: 09-16-2023 End: 09-16-2023 ambulatory Kathrine Rumschlag Facility:[facility] Start: 09-16-2023 End: 09-16-2023 Patient encounter procedure [facility] [place] Work Phone: Start: 09-16-2023 End: 09-16-2023 ambulatory NON STAFF [facility] Work Phone: Start: 09-16-2023 Telephone encounter Yolanda LEDEZMA Nephrology Start: 09-10-2023 End: 09-10-2023 ambulatory Angela Aldrich Other [facility] [employer] Other Start: 09-10-2023 Telephone encounter [facility] Start: 09-02-2023 End: 09-02-2023 ambulatory Kathrine Gustafson Facility:[facility] Start: 09-02-2023 End: 09-02-2023 ambulatory NON STAFF [facility] Work Phone: Start: 09-02-2023 End: 09-02-2023 Patient encounter procedure [facility] [place] Work Phone: Start: 08-28-2023 End: 08-28-2023 ambulatory Zoila Jiménez Facility:[facility] Start: 08-28-2023 End: 08-28-2023 ambulatory NON STAFF [facility] Work Phone: Start: 08-28-2023 End: 08-28-2023 Patient encounter procedure [facility] [place] Work Phone: Start: 08-07-2023 End: 08-07-2023 ambulatory Angela Aldrich Other [facility] [employer] Other Start: 08-07-2023 Telephone encounter [facility] Start: 08-06-2023 (DM) Diabetes Angela Rodriguezdawson [facility] Start: 08-06-2023 End: 08-06-2023 ambulatory Angela Aldrich Other [facility] [employer] Other Start: 08-06-2023 Registered [facility]ring [facility] Work Phone: Start: 07-23-2023 End: 07-23-2023 ambulatory Angela Aldrich Other [facility] [employer] Other Start: 07-23-2023 Telephone encounter Angelaamna Aldrich [facility] Start: 04-30-2023 Rx Renewal Kathrine Lynn lag Work Phone: [facility] 250 DO Work Phone: Start: 04-30-2023 (DM) Diabetes Angela Scally [facility] Start: 04-30-2023 End: 04-30-2023 ambulatory Angela Scally Other [facility] [employer] Other Start: 03-01-2023 End: 03-02-[address] AZ HAYES Facility: Start: 02-20-2023 End: 02-20-2023 ambulatory Zoila Jiménez Facility:[facility] Start: 01-22-2023 (DM) Diabetes Angela Scally [facility] Start: 01-22-2023 End: 01-22-2023 ambulatory Angela Scally Other [facility] [employer] Other Start: 12-28-2022 End: 12-28-2022 ambulatory Angela Scally Other [facility] [employer] Other Start: 12-28-2022 Telephone encounter Angela Lokeshly [facility] Start: 12-06-2022 End: 12-06-2022 ambulatory Angela Scally Other [facility] [employer] Other Start: 12-06-2022 Telephone encounter Angela Lokeshly [facility] Start: 11-28-2022 End: 11-28-2022 ambulatory Angela Scally Other [facility] [employer] Other Start: 11-28-2022 Telephone encounter Angela Lokeshly [facility] Start: 11-15-2022 End: 11-16-2022 ambulatory LEANDRA TO Facility[facility] Start: 11-15-2022 End: 11-15-2022 Lab Drop off LEANDRA TO [facility] Start: 11-15-2022 End: 11-15-2022 Patient encounter procedure LEANDRA TO [facility] Start: 10-17-2022 ambulatory LEANDRA TO Facili ty:[facility] Start: 10-16-2022 ambulatory LEANDRA TO Facili ty:SANJANA MillsShani Start: 10-09-2022 End: 10-09-2022 ambulatory Angela Elinor Other [facility] [employer] Other Start: 10-09-2022 Telephone encounter [facility] Start: 09-28-2022 Rx Renewal Kathrine galaviz Work Phone: [facility] 250 DO Work Phone: Start: 09-24-2022 Office outpatient vi sit 25 minutes Kathrine Gustafson Work Phone: [facility] 250 DO Work Phone: Start: 09-24-[address] Az Hayes Facility: Start: 09-18-2022 (DM) Diabetes Angela Boss [facility] Start: 09-18-2022 End: 09-18-2022 ambulatory Angela Aldrich Other [facility] [employer] Other Start: 08-28-2022 End: 08-28-2022 ambulatory Zaina Leigh Other [facility] [employer] Other Start: 08-28-2022 Encounter by leanne Gustafson [facility] Start: 08-28-2022 Office outpatient vi sit 15 minutes Zaina Reese [facility] Start: 08-23-2022 End: 08-24-2022 ambulatory LEANDRA TO Facility:[facility] Start: 08-23-2022 End: 08-24-2022 ambulatory LEANDRA TO Facility: [facility] Start: 08-23-2022 End: 08-23-2022 Lab Drop off LEANDRA TO [facility] Start: 08-23-2022 End: 08-23-2022 Patient encounter procedure LEANDRA TO [facility] Start: 08-16-2022 ambulatory KATHRINE GUSTAFSON Facilit y:SANJANA Chairez Start: 06-19-2022 End: 06-19-2022 ambulatory Angela Aldrich Other [facility] [employer] Other Start: 06-19-2022 Telephone encounter [facility] Start: 06-13-2022 End: 06-13-2022 Patient encounter procedure [facility] Start: 06-12-2022 End: 06-12-2022 ambulatory Angela Aldrich Other [facility] [employer] Other Start: 06-12-2022 Telephone encounter [facility] Start: 05-31-2022 Chart Update Kathrine Lynn lag Work Phone: [facility] 600 DO Work Phone: Start: 05-31-2022 End: 05-31-2022 Patient encounter procedure [facility] [place] Start: 05-24-2022 Registered Rec[facility]ring [facility] Start: 05-24-2022 (DM) Diabetes Angela Scally [facility] Start: 05-24-2022 End: 05-24-2022 ambulatory Angela Scally Other [facility] [employer] Other Start: 02-21-2022 (DM) Diabetes Angela Scally [facility] Start: 02-21-2022 End: 02-21-2022 ambulatory Angela Scally Other [facility] [employer] Other Start: 02-14-[address] Az Hayes Facility: Start: 02-14-2022 Office outpatient vi sit 25 minutes Kathrine Alvarezg Work Phone: [facility] 250 DO Work Phone: Start: 02-08-2022 End: 02-08-2022 ambulatory Angela Scally Other [facility] [employer] Other Start: 02-08-2022 Telephone encounter Angela Scally [facility] Start: 02-01-2022 End: 02-01-2022 ambulatory Angela Scally Other [facility] [employer] Other Start: 02-01-2022 Telephone encounter Angela Scally [facility] Start: 01-17-2022 End: 01-17-2022 ambulatory Angela Scally Other [facility] [employer] Other Start: 01-17-2022 Telephone encounter Angela Scally [facility] Start: 01-16-2022 End: 01-16-2022 ambulatory Angela Scally Other [facility] [employer] Other Start: 01-16-2022 Telephone encounter Angela Scally [facility] Start: 01-02-2022 End: 01-02-2022 ambulatory Angela Scally Other [facility] [employer] Other Start: 01-02-2022 Telephone encounter [facility] Start: 11-14-2021 End: 11-14-2021 ambulatory Angela Aldrich Other [facility] [employer] Other Start: 11-14-2021 Telephone encounter [facility] Start: 11-08-2021 (DM) Diabetes Angela Elinor [facility] Start: 11-08-2021 End: 11-08-2021 ambulatory Angela Aldrich Other [facility] [employer] Other Start: 10-16-2021 End: 10-16-2021 ambulatory Angela Aldrich Other [facility] [employer] Other Start: 10-16-2021 Telephone encounter [facility] Start: 10-10-2021 Rx Renewal Kathrine K Rumsch lag Work Phone: [employer] 250 DO Work Phone: Start: 10-06-2021 End: 10-06-2021 ambulatory Angela Aldrich Other [facility] [employer] Other Start: 10-06-2021 Telephone encounter [facility] Start: 09-04-2021 End: 09-04-2021 ambulatory Angela Aldrich Other [facility] [employer] Other Start: 09-04-2021 Telephone encounter [facility] Start: 08-17-2021 Office outpatient vi sit 25 minutes Kathrine K Rumschlag Work Phone: [facility] [place] 250 DO Work Phone: Start: 08-04-2021 Telephone encounter Yolanda LEDEZMA [employer] Start: 08-03-2021 Office outpatient ne w 45 minutes Yolanda LEDEZMA Nephrology Start: 06-13-2017 Ambulatory AZ Dailey [id number] Procedures Date Procedure Procedure Detail Performing Clinician Start: 09-16-2023 CT angiography of head Start: 09-16-2023 CT angiography of ne ck vessels Start: 09-02-2023 Urine culture Start: 08-28-2023 Urine culture Start: 05-31-2022 Ultrasonography of bilateral kidneys Start: 08-16-2020 Echocardiography Appendectomy LEANDRA TO Cataract (disorder) LEANDRA XOCHITL Coronary artery bypa ss graft Kathrine K Rumschlag Work Phone: Comment on above: 12/07/16; Coronary artery bypa ss grafts x 3 LEANDRA XOCHITL Decompression of med jorge l nerve Kathrine K Rumschlag Work Phone: Decompression of med jorge l nerve LEADNRA XOCHITL Hysterectomy LEANDRA XOCHITL Intestinal structure (body structure) LEANDRA XOCHITL Tonsillectomy Kathrine K Rumsch lag Work Phone: Tonsillectomy LEANDRA XOCHITL Total abdominal hysterectomy Kathrine K Rumschlag Work Phone: Urine culture NEGATED: Highlighted row has not occurred! Colonoscopy Kathrine K Rumschlag Work Phone: Plan of Treatment Date Care Activity Detail Author Start: 04-07-2024 End: 04-07-2024 Patient encounter procedure 04/07/2024 2:50 PM EDT Office Visit [facility] [address] [place] [id number] Az Hayes MD [address] [facility] [address] [place] [address] [facility] Start: 10-22-2023 FUV, Provider: Az Hayes, Status: Pen, Time: 1:40 PM FUV, Provider: Az Hayes, Status: Pen, Time: 1:40 PM [facility] 250 DO Work Phone: Start: 10-21-2023 MG Breast - bilateral Screening [facility] Start: 10-21-2023 Screening mammography of bilateral breasts MM screening mammo BI w/CAD [facility] Start: 09-16-2023 CT angiography of head [facility] Start: 09-16-2023 CT angiography of neck vessels [facility] Start: 09-02-2023 Bacteria identified in Urine by Culture [facility] Start: 08-28-2023 Bacteria identified in Urine by Culture [facility] Start: 08-15-2023 Glaucoma screening Diabetes: Retinopathy Screening [facility] Start: 07-05-2023 Influenza vaccination Influenza Vaccine (#1) [facility] Start: 03-19-2023 FUV, Provider: Az Hayes, Status: Pen, Time: 3:40 PM FUV, Provider: Az Hayes, Status: Pen, Time: 3:40 PM [facility] 250 DO Work Phone: Start: 08-09-2022 FUV, Provider: Az Hayes, Status: Pen, Time: 1:30 PM FUV, Provider: Az Hayes, Status: Pen, Time: 1:30 PM [facility] 250 DO Work Phone: Start: 06-13-2022 End: 06-13-2022 Patient encounter procedure Departed Clinical [facility] Start: 02-14-2022 FUV, Provider: Az Hayes, Status: Pen, Time: 3:40 PM FUV, Provider: Az Hayes, Status: Pen, Time: 3:40 PM [facility] Lugo DO Work Phone: Start: 09-22-2019 Pneumococcal Vaccine: 65+ Years (2 - PCV) Pneumococcal Vaccine: 65+ Years (2 - PCV) [facility] Start: 2007 Zoster Vaccines (1 of 2) Zoster Vaccines (1 of 2) [facility] Start: 1997 Screening for malignant neoplasm of breast Mammogram [facility] Start: 1979 DTaP/Tdap/Td Vaccines (1 - Tdap) DTaP/Tdap/Td Vaccines (1 - Tdap) [facility] Start: 1976 Urine screening for protein Diabetes: Urine Protein Screening [facility] Start: 1975 Hepatitis C screening Hepatitis C Screening [facility] Start: 1967 Diabetic foot examination Diabetes: Foot Exam [facility] Start: 1957 COVID-19 Vaccine (#1) COVID-19 Vaccine (#1) [facility] Start: 1957 Hemoglobin A1c measurement Diabetes: Hemoglobin A1C [facility] Start: 1957 Lipid panel Lipid Panel [facility] Start: 1957 Medicare Annual Wellness Visit Medicare Annual Wellness Visit (AWV) [facility] Start: 1957 Screening for malignant neoplasm of colon [facility] Start: 1957 Screening for osteoporosis Bone Density Scan [facility] 24 hour urine measurement [facility] Albumin [Mass/volume ] in Serum or Plasma [facility] Albumin/Globulin ratio [facility] Anion gap measurement [facility] Electrophoresis: [id number] [facility] Electrophoresis: [id number] [facility] Electrophoresis: beta-globulin [facility] Electrophoresis: lázaro ma globulin [facility] Globulin [Mass/volum e] in Serum [facility] IgA [Mass/volume] in Serum or Plasma [facility] IgG [Mass/volume] in Serum or Plasma [facility] IgM [Mass/volume] in Serum or Plasma [facility] Immunofixation for Urine [facility] [place] light chains.f ree [Mass/volume] in Serum [facility] [place] light chains.free/Lambda light chains.free [Mass Ratio] in Serum [facility] Lambda light chains. free [Mass/volume] in Serum or Plasma [facility] Measurement of monoc lonal protein concentration [facility] Protein [Mass/volume ] in Serum or Plasma [facility] Protein [Mass/volume ] in Urine [facility] Serum immunofixation [facility] Immunizations Immunization Date Immunization Notes Care Provider Fa [facility] 11-13-2019 influenza virus vacc ine, unspecified formulation LEANDRA XOCHITL [facility] 11-13-2019 influenza, injectabl e, quadrivalent, contains preservative Kathrine K Rumschlag Work Phone: [place] [address] DO Work Phone: 11-04-2019 influenza virus vacc ine, unspecified formulation Kathrine K Rumschlag Work Phone: [place] [address] DO Work Phone: 10-04-2018 influenza virus vacc ine, unspecified formulation Kathrine K Rumschlag Work Phone: [place] [address] DO Work Phone: 09-22-2018 influenza virus vacc ine, unspecified formulation LEANDRA XOCHITL [facility] 09-22-2018 Influenza, injectabl e, Madin Celia Canine Kidney, preservative free, quadrivalent Kathrine K Rumschlag Work Phone: [facility] 250 DO Work Phone: 09-22-2018 pneumococcal polysaccharide vaccine, 23 valent Kathrine K Rumschlag Work Phone: [facility] 09-25-2017 influenza virus vacc ine, unspecified formulation LEANDRA XOCHITL [facility] 09-25-2017 influenza, seasonal, injectable, preservative free Kathrine Kimberly Rumschlag Work Phone: [facility] 250 DO Work Phone: 08-04-2017 influenza virus vacc ine, unspecified formulation Kathrine K Rumschlag Work Phone: [facility] 250 DO Work Phone: 12-05-2016 pneumococcal polysaccharide vaccine, 23 valent Kathrine Kimberly Rumschlag Work Phone: [facility] 250 DO Work Phone: 08-04-2016 influenza virus vacc ine, unspecified formulation Kathrine K Rumschlag Work Phone: [facility] 250 DO Work Phone: 08-29-2009 influenza virus vacc ine, whole virus Kathrine K Rumschlag Work Phone: [facility] 250 DO Work Phone: 08-29-2009 influenza, whole LEANDRA GAUTAM RRY [facility] Payers Date Payer Category Payer Medicare [id number] 2018 Self-pay [id number] 2009 Medicare MEDICARE MEDICAR E PART A AND B [id number] 2009-Present [address] [place] [address] [id number] 1959 Medicare [id number] 1957 Unknown [id number] 1957 Unknown [id number] [id number] 1957 Unknown [id number] [id number] 1957 Unknown [id number] 2.16.840.1.460982.3.579.2.727 1957 Unknown [id number] 2.16.840.1.857907.3.579.2.727 1957 Unknown [id number] 2.16.840.1.026199.3.579.2.72 1957 Unknown [id number] 2.16.840.1.364488.3.579.2.727 1957 Unknown [id number] 2..840.1.798993.3.579.2.727 1957 Unknown [id number] 2.16.840.1.395041.3.579.2.727 1957 Unknown [id number] 2..840.1.478493.3.579.2.593 1957 Unknown [id number] [id number] Medicare [id number] Unknown MEDICARE Unknown HCAP/HFA/FAP Active [id number] Unknown [id number] [id number] Unknown [id number] 2.16.840.1.999861.3.579.2.531 Unknown [id number] [id number] Unknown [id number] [id number] Unknown [id number] [id number] Unknown [id number] Social History Date Type Detail Facility Start: 03-19-2023 End: 10-07-2023 Caffeine use Caffeine use [facility] Comment on above: 2-3 green tea daily, 1 cup coffee daily; 2-3 green tea daily, 2-3 cups coffee daily; Start: 03-19-2023 End: 10-07-2023 Sex Assigned At [facility] Start: 1955 Sex Assigned At Female F [facility] Start: 08-23-2022 End: 10-07-2023 Tobacco smoking status Never smoked tobacco (finding) [facility] Tobacco smoking status Never [facility] Start: 10-07-2023 Tobacco use and exposure Smokeless tobacco non-user [facility] Work Phone: Start: 10-07-2023 Alcohol intake Lifetime non-d navin (finding) [facility] Work Phone: Start: 1955 Sex Assigned At Not on file [facility] Work Phone: Start: 09-27-2023 End: 10-07-2023 Exposure to SARS-CoV-2 (event) Not sure [facility] Functional Status Date Assessment Result Facility 11-15-2022 Functional Status N/A [facility] 08-23-2022 Functional Status N/A [facility] 02-14-2022 PHQ-9 [id number] Moder ately Severe (15-19) [facility] 250 DO Work Phone: Clinical Notes 08-17-2020 to 11-13-2023 Note Date & Type Note Facility 11-13-2023 Evaluation note Encounter Date Diagnosis Assessment Notes Nov, Type 2 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 Controlled, Type 2 diabetes A1c now 8.5%, from 6.7% with no severe lows, No GMI available as not using CGM consistenly. Will review at DL. 7% would beeasonable goal d/t poor toleration of lows 2. Adjust Basal insulin Lantus increase to 24 u in am and increase pm dose to 20 u daily. Continue Apidra 1: 5 ICR and ISS to 1:30. She will continue Tradjenta 5 mg p.o. daily Jardiance 10 mg 1 p.o. daily, I will not escalate Jardiance due to history of urosepsis. She has appt with Urology tomorrow, she will see if they have any concern for Jardiance and let us know. Reporting stock of Lantus at home, encouraged check of expiration dates_ _ notify office of any medication deficits Research shows that stamina with the current regime may fatigue, as would outcomes and CGM is equitable compaired to disease instability. CGM necessary for safety for Elizabeth. She and do realize that if unable to wear CGM for any reason, they should revert to AC/HS fingersticks. Due to comorbidities and poor tolerance of hypoglycemia, high variability on insulin I have encouraged her to maintain CGM at all times. 3. Patient is alert, oriented and receptive to making changes or counseling. Notes: Seen for an assessment of current glucose pattern, changes in treatment plan, with greater than 50% of this time spent in counseling and coordination of care related to diabetes, risks, and benefits of treatment, medications, side effects, and counseling. Given handouts to reinforce concepts reviewed during counseling. TOPICS REVIEWED: 1. Time was spent reviewing: a. Basic concepts of diabetes, progressive beta cell , concepts of basal/bolus/cor rective insulin requirements. Basal: The goal is fasting blood glucose of 90-130mg. IF fasting blood glucose starts to run under 100mg 3x's/ week, decrease dose by 10%. Bolus: The goal is to hold the blood glucose level steady meal to meal. If pt. is going to have increased physical activity after a meal, decrease the schedule meal dose prior to the activity by 30-50%. If pt. skips a meal do not take this dose. Correction: The goal is to correct an elevated glucose back into the 100-150mg range b. Nutrition: Concepts of healthy diet, encouraged to decrease saturated fat in diet and increase non-starchy vegetables and fruits in diet. BMI: Pt. needs to select one small change to decrease caloric intake or increase physical activity to help decrease weight. c. Correct treatment of hypoglycemia, carry a glucose source at all times on your person, in vehicles, and at bedside. Can use glucose tablets/4, four ounces of pop or juice equal to 15 G of carbohydrate. Blood glucose should be 100 mg/dl or higher when driving. d. ADA glucose goals for age and medical complexity reviewed e. Patient questions addressed 2. Activity/exerci se: Encouraged to start any form of physical activity. Start low level and increase slowly to a minimal goal of 150 minutes/week. Limit activity to what is allowed by other issues such as cardiac, pulmonary or orthopedic restrictions. 3. Standards of care: Reminded to have an annual dilated eye exam, A1C every 3 months, urine testing for microalbumin once/year, check feet daily and report any cuts or sores that do not appear to be healing. 4. Meter: Plan to check blood glucose: Please check blood glucose levels 4 times/day. Back to back meals reveal effectiveness of bolus dosing. The blood glucose data is used to determine insulin doses and confirm symptoms for hypoglycemia and hyperglcyemia. The blood glucose data is used to determine insulin doses, and confirm symptoms for hypoglycemia and hyperglcyemia. 5. [facility] Contact office if any issues or concerns with patterns of hypoglycemia, hyperglycemia, or diabetes medication issues. 6. Prescriptions: Per patient no refills needed today Nov, Vitamin D deficiency (ICD-10 - E55.9) per nephrology Nov, Dietary counseling and surveillance (ICD-10 - Z71.3) Learning About Healthy Weight material was published to portal Nov, Hyperlipidemia (ICD-10 - E78.5) Nov, HTN (hypertension) (ICD-10 - I10) at goal today Nov, MCFP current use of insulin (ICD-10 - Z79.4) Nov, Depression (ICD-10 - F32.9) Nov, BMI 30.0-30.9,adult (ICD-10 - Z68.30) [facility] Other 12-04-2023 History of Present illness Narrative* Az Hayes MD - 10/07/2023 1:40 PM EST Subjective Elizabeth Manrique is a 68 y.o. female Chief Complaint Follow-up HPI Patient is here for follow-up continue management for coronary disease with remote bypass surgery, chronic complaint of orthostatic hypotension and intermittent chest pain. Since last time I saw her she denies any change in cardiac status or symptoms. She continues to use midodrine as needed. She report recently her blood pressures running a little bit on the higher range. But overall there has been no recent changes. She is complaining about the cost of Ranexa.ASSESSMENT: 1. Coronary artery disease with with bypass surgery back in 2017. She described symptoms of shortness of breath. Few episodes of chest pain. Last stress test in 2019 was negative. Clinically unchanged from before 2. Chronic orthostatic hypotension due to autonomic diabetic neuropathy she uses midodrine intermittently 3. Ischemic cardiomyopathy, improved. MUGA scan showed ejection fraction of 40- 45 %. 4. INTOLERANCE TO MARY INHIBITOR DUE TO CHRONIC ORTHOSTATIC HYPOTENSION. 5. Chronic orthostatic hypotension due to diabetic autonomic dysfunction 6. Shortness of breath with the above factors, seems to be stable with functional class II. 7. Obesity with no weight changes. 8. Diabetes mellitus she reports has not been very well-controlled 9. Intermittent edema 10. Hyperlipidemia her LDL is 54 triglyceride remains elevated 11. Stable small meningioma per recent MRI RECOMMENDATIONS: 1. Advised the patient to continue same treatment except I told her to try to stop Ranexa. I advised her if she develop worsening chest pain or shortness of breath to notify me 2. We discussed repeat ischemic evaluation however considering her symptoms had been relatively stable she elected to remain on current therapy unchanged. She will notify me change in cardiac status or symptoms 3. Patient was consulted on losing weight, exercise and dietary modification and was encouraged to use her stationary bike. 4. We'll see her back and 6 month in follow-up or earlier if the need arise 5. Continue to encourage her to optimize her diabetic control 6. Continue to encourage the patient to maintain high fluid intake, wear compression stocking and use Midrin as needed Review of Systems Cardiovascular: Positive for chest pain and dyspnea on exertion. Neurological: Positive for light-headedness. All other systems reviewed and are negative. Visit Vitals BP 118/66 (BP Location: Right arm, Patient Position: Sitting) Pulse 78 Smoking Status Never Objective Physical Exam Constitutional: Appearance: Normal appearance. She is normal weight. HENT: Nose: Nose normal. Neck: Vascular: No carotid bruit. Cardiovascular: Rate and Rhythm: Normal rate. Pulses: Normal pulses. Heart sounds: Normal heart sounds. Pulmonary: Effort: Pulmonary effort is normal. Abdominal: General: Bowel sounds are normal. Palpations: Abdomen is soft. Genitourinary: Rectum: Normal. Musculoskeletal: General: Normal range of motion. Cervical back: Normal range of motion. Right lower leg: No edema. Left lower leg: No edema. Skin: General: Skin is warm and dry. Neurological: General: No focal deficit present. Mental Status: She is alert. Psychiatric: Mood and Affect: Mood normal. Behavior: Behavior normal. Thought Content: Thought content normal. Judgment: Judgment normal. Current Medications Current Outpatient Medications: albuterol 90 mcg/actuation inhaler, Inhale 2 puffs every 4 hours if needed for wheezing., Disp: , Rfl: atorvastatin (Lipitor) 80 mg tablet, Take 1 tablet (80 mg) by mouth once daily at bedtime., Disp: ,Rfl: carvedilol (Coreg) 3.125 mg tablet, Take 1 tablet (3.125 mg) by mouth 2 times a day., Disp: , Rfl: clopidogrel (Plavix) 75 mg tablet, Take 1 tablet (75 mg) by mouth once daily., Disp: , Rfl: digoxin (Digox) 125 MCG tablet, Take 1 tablet (125 mcg) by mouth once daily., Disp: , Rfl: empagliflozin (Jardiance) 10 mg, Take 1 tablet (10 mg) by mouth once daily., Disp: , Rfl: guaiFENesin (Mucus Relief) 400 mg tablet, Take 1 tablet (400 mg) by mouth every 4 hours., Disp: , Rfl: insulin glargine (Lantus U-100 Insulin) 100 unit/mL injection, Inject 1 Units under the skin once daily in the morning., Disp: , Rfl: insulin glulisine (Apidra U-100 Insulin) 100 unit/mL injection, Inject 1 Units under the skin 3 times a day with meals., Disp: , Rfl: linaGLIPtin (Tradjenta) 5 mg tablet, Take 1 tablet (5 mg) by mouth once daily., Disp: , Rfl: midodrine (Proamatine) 5 mg tablet, Take 1 tablet (5 mg) by mouth 3 times a day., Disp: , Rfl: nitroglycerin (Nitrostat) 0.4 mg SL tablet, Place 1 tablet (0.4 mg) under the tongue every 5 minutes if needed for chest pain., Disp: , Rfl: omeprazole (PriLOSEC) [address] capsule, Take 1 capsule (20 mg) by mouth once daily., Disp: , Rfl: oxygen (O2) gas therapy, Inhale 1 each continuously., Disp: , Rfl: ERENUMAB-AOOE SUBQ, Inject 140 mg under the skin every 30 (thirty) days., Disp: , Rfl: Assessment/Plan 1. CAD, multiple vessel Follow Up In Cardiology 2. Chest pain, unspecified type 3. Essential hypertension, benign Follow Up In Cardiology 4. Ischemic cardiomyopathy Follow Up In Cardiology 5. Mixed hyperlipidemia 6. Postoperative atrial fibrillation (CMS/HCC) 7. SOB (shortness of breath) on exertion 8. Orthostatic hypotension [facility] Phone: 1(626) 668-711112-04-2023 Instructions* Patient Instructions* Yudi Crowley LPN - 10/07/2023 1:40 PM EST Please bring all medicines, vitamins, and herbal supplements with you when you come to the office. Prescriptions will not be filled unless you are compliant with your follow up appointments or have a follow up appointment scheduled as per instruction of your physician. Refills should be requested at the time of your visit. Follow up visit 6 months Stop Ranexa. Call is symptoms occur. Can use Midodrine as needed. [facility] Work Phone: [phone]) 580-946610-03-2023 Evaluation note* Encounter Date Diagnosis Assessment Notes Treatment Notes Treatment Clinical Notes Aug, Type 2 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 Controlled, Type 2 diabetes A1c 6.7%, from 6.6% with no severe lows, GMI implies 7.5% over last 2 weeks. Reasonable goal d/t poor toleration of lows 2. BG at goal, , reduced basal insulin. She is to take Lantus 28 units in a.m. and REDUCE PM DOSE to 18 u. units in p.m. She should continue Apidra 1: 5 ICR and increase ISS to 1:30. She will continue Tradjenta 5 mg p.o. daily Jardiance 10 mg 1 p.o. daily, I will not escalate Jardiance due to history of urosepsis. She will fasting labs prior to next visit. Hx B12 deficiency receiving INJ at [facility]. Sees Nephrology. Reporting stock of Lantus at home, encouraged check of expiration dates-- notify office of any medication deficits Research shows that stamina with the current regime may fatigue, as would outcomes and CGM is equitable compaired to disease instability. CGM necessary for safety for Elizabeth. She and do realize that if unable to wear CGM for any reason, they should revert to AC/HS fingersticks. Due to comorbidities and poor tolerance of hypoglycemia, high variability on insulin I have encouraged her to maintain CGM at all times. 3. Patient is alert, oriented and receptive to making changes or counseling. Notes: Seen for an assessment of current glucose pattern, changes in treatment plan, with greater than 50% of this time spent in counseling and coordination of care related to diabetes, risks, and benefits of treatment, medications, side effects, and counseling. Given handouts to reinforce concepts reviewed during counseling. TOPICS REVIEWED: 1. Time was spent reviewing: a. Basic concepts of diabetes, progressive beta cell , concepts of basal/bolus/correct marissa insulin requirements. Basal: The goal is fasting blood glucose of 90-130mg. IF fasting blood glucose starts to run under 100mg 3x's/ week, decrease dose by 10%. Bolus: The goal is to hold the blood glucose level steady meal to meal. If pt. is going to have increased physical activity after a meal, decrease the schedule meal dose prior to the activity by 30-50%. If pt. skips a meal do not take this dose. Correction: The goal is to correct an elevated glucose back into the 100-150mg range b. Nutrition: Concepts of healthy diet, encouraged to decrease saturated fat in diet and increase non-starchy vegetables and fruits in diet. BMI: Pt. needs to select one small change to decrease caloric intake or increase physical activity to help decrease weight. c. Correct treatment of hypoglycemia, carry a glucose source at all times on your person, in vehicles, and at bedside. Can use glucose tablets/4, four ounces of pop or juice equal to 15 G of carbohydrate. Blood glucose should be 100 mg/dl or higher when driving. d. ADA glucose goals for age and medical complexity reviewed e. Patient questions addressed 2. Activity/exercise: Encouraged to start any form of physical activity. Start low level and increase slowly to a minimal goal of 150 minutes/week. Limit activity to what is allowed by other issues such as cardiac, pulmonary or orthopedic restrictions. 3. Standards of care: Reminded to have an annual dilated eye exam, A1C every 3 months, urine testing for microalbumin once/year, check feet daily and report any cuts or sores that do not appear to be healing. 4. Meter: Plan to check blood glucose: Please check blood glucose levels 4 times/day. Back to back meals reveal effectiveness of bolus dosing. The blood glucose data is used to determine insulin doses and confirm symptoms for hypoglycemia and hyperglcyemia. The blood glucose data is used to determine insulin doses, and confirm symptoms for hypoglycemia and hyperglcyemia. 5. [facility]. Contact office if any issues or concerns with patterns of hypoglycemia, hyperglycemia, or diabetes medication issues. 6. Prescriptions: Per patient no refills needed today 08-05-2023. PAP Apidra, Lantus. Aug, Vitamin D deficiency (ICD-10 - E55.9) per nephrology Aug, Dietary counseling and surveillance (ICD-10 - Z71.3) Learning About Healthy Weight material was published to portal Aug, Hyperlipidemia (ICD-10 - E78.5) Aug, HTN (hypertension) (ICD-10 - I10) Elevated today, increase vigilance, check blood pressure daily f/u with pcp Aug, MCFP current use of insulin (ICD-10 - Z79.4) Aug, Depression (ICD-10 - F32.9) Aug, BMI 30.0-30.9,adult (ICD-10 - Z68.30) [facility] Other 09-19-2023 Evaluation note* Encounter Date Diagnosis Assessment Notes Treatment Notes Treatment Clinical Notes Jul, Type 2 diabetes mellitus with diabetic chronic kidney disease (ICD-10 - E11.22) [facility] Other 06-27-2023 Evaluation note* Encounter Date Diagnosis Assessment Notes Treatment Notes Treatment Clinical Notes Apr, Type 2 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 Controlled, Type 2 diabetes A1c 7.2%=== Toleration of A1c 7.0% d/t insulin use, variabiliy and likely poor toleration of low blood glucose 2. BG at goal, with some lows, reduced basal insulin. She is to take Lantus 28 units in a.m. and REDUCE PM DOSE to 19 u.20 units in p.m. She should continue Apidra 1: 5 ICR and 1: 20 ISS. She will continue Tradjenta 5 mg p.o. daily Jardiance 10 mg 1 p.o. daily, I will not escalate Jardiance due to history of urosepsis. She will fasting labs prior to next visit. Patient did see Dr Leigh Research shows that stamina with the current regime may fatigue, as would outcomes and CGM is equitable compaired to disease instability. CGM necessary for safety for Elizabeth. She and do realize that if unable to wear CGM for any reason, they should revert to AC/HS fingersticks. Due to comorbidities and poor tolerance of hypoglycemia, high variability on insulin I have encouraged her to maintain CGM at all times. 3. Patient is alert, oriented and receptive to making changes or counseling. Notes: Seen for an assessment of current glucose pattern, changes in treatment plan, with greater than 50% of this time spent in counseling and coordination of care related to diabetes, risks, and benefits of treatment, medications, side effects, and counseling. Given handouts to reinforce concepts reviewed during counseling. TOPICS REVIEWED: 1. Time was spent reviewing: a. Basic concepts of diabetes, progressive beta cell , concepts of basal/bolus/correct marissa insulin requirements. Basal: The goal is fasting blood glucose of 90-130mg. IF fasting blood glucose starts to run under 100mg 3x's/ week, decrease dose by 10%. Bolus: The goal is to hold the blood glucose level steady meal to meal. If pt. is going to have increased physical activity after a meal, decrease the schedule meal dose prior to the activity by 30-50%. If pt. skips a meal do not take this dose. Correction: The goal is to correct an elevated glucose back into the 100-150mg range b. Nutrition: Concepts of healthy diet, encouraged to decrease saturated fat in diet and increase non-starchy vegetables and fruits in diet. BMI: Pt. needs to select one small change to decrease caloric intake or increase physical activity to help decrease weight. c. Correct treatment of hypoglycemia, carry a glucose source at all times on your person, in vehicles, and at bedside. Can use glucose tablets/4, four ounces of pop or juice equal to 15 G of carbohydrate. Blood glucose should be 100 mg/dl or higher when driving. d. ADA glucose goals for age and medical complexity reviewed e. Patient questions addressed 2. Activity/exercise: Encouraged to start any form of physical activity. Start low level and increase slowly to a minimal goal of 150 minutes/week. Limit activity to what is allowed by other issues such as cardiac, pulmonary or orthopedic restrictions. 3. Standards of care: Reminded to have an annual dilated eye exam, A1C every 3 months, urine testing for microalbumin once/year, check feet daily and report any cuts or sores that do not appear to be healing. 4. Meter: Plan to check blood glucose: Please check blood glucose levels 4 times/day. Back to back meals reveal effectiveness of bolus dosing. The blood glucose data is used to determine insulin doses and confirm symptoms for hypoglycemia and hyperglcyemia. The blood glucose data is used to determine insulin doses, and confirm symptoms for hypoglycemia and hyperglcyemia. 5. [facility]. Contact office if any issues or concerns with patterns of hypoglycemia, hyperglycemia, or diabetes medication issues. 6. Prescriptions: Per patient no refills needed today 04-30-2023. Kelechi Sanders. Apr, Vitamin D deficiency (ICD-10 - E55.9) 02/08/2021 Vit. 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 Controlled, Type 2 diabetes A1c 6.5%=== Toleration of A1c 7.0% d/t insulin use, variabiliy and likely poor toleration of low blood glucose 2. BG at goal, with some lows, reduced basal insulin. She is to take Lantus 28 units in a.m. and 20 units in p.m. She should continue Apidra 1: 5 ICR and 1: 20 ISS. She will continue Tradjenta 5 mg p.o. daily Jardiance 10 mg 1 p.o. daily, I will not escalate Jardiance due to history of urosepsis. She will fasting labs prior to next visit. Patient did see Dr Leigh Research shows that stamina with the current regime may fatigue, as would outcomes and CGM is equitable compaired to disease instability. CGM necessary for safety for Elizabeth. She and do realize that if unable to wear CGM for any reason, they should revert to AC/HS fingersticks. Due to comorbidities and poor tolerance of hypoglycemia, high variability on insulin I have encouraged her to maintain CGM at all times. 3. Patient is alert, oriented and receptive to making changes or counseling. Notes: Seen for an assessment of current glucose pattern, changes in treatment plan, with greater than 50% of this time spent in counseling and coordination of care related to diabetes, risks, and benefits of treatment, medications, side effects, and counseling. Given handouts to reinforce concepts reviewed during counseling. TOPICS REVIEWED: 1. Time was spent reviewing: a. Basic concepts of diabetes, progressive beta cell , concepts of basal/bolus/correct marissa insulin requirements. Basal: The goal is fasting blood glucose of 90-130mg. IF fasting blood glucose starts to run under 100mg 3x's/ week, decrease dose by 10%. Bolus: The goal is to hold the blood glucose level steady meal to meal. If pt. is going to have increased physical activity after a meal, decrease the schedule meal dose prior to the activity by 30-50%. If pt. skips a meal do not take this dose. Correction: The goal is to correct an elevated glucose back into the 100-150mg range b. Nutrition: Concepts of healthy diet, encouraged to decrease saturated fat in diet and increase non-starchy vegetables and fruits in diet. BMI: Pt. needs to select one small change to decrease caloric intake or increase physical activity to help decrease weight. c. Correct treatment of hypoglycemia, carry a glucose source at all times on your person, in vehicles, and at bedside. Can use glucose tablets/4, four ounces of pop or juice equal to 15 G of carbohydrate. Blood glucose should be 100 mg/dl or higher when driving. d. ADA glucose goals for age and medical complexity reviewed e. Patient questions addressed 2. Activity/exercise: Encouraged to start any form of physical activity. Start low level and increase slowly to a minimal goal of 150 minutes/week. Limit activity to what is allowed by other issues such as cardiac, pulmonary or orthopedic restrictions. 3. Standards of care: Reminded to have an annual dilated eye exam, A1C every 3 months, urine testing for microalbumin once/year, check feet daily and report any cuts or sores that do not appear to be healing. 4. Meter: Plan to check blood glucose: Please check blood glucose levels 4 times/day. Back to back meals reveal effectiveness of bolus dosing. The blood glucose data is used to determine insulin doses and confirm symptoms for hypoglycemia and hyperglcyemia. The blood glucose data is used to determine insulin doses, and confirm symptoms for hypoglycemia and hyperglcyemia. 5. [facility]. Contact office if any issues or concerns with patterns of hypoglycemia, hyperglycemia, or diabetes medication issues. 6. Prescriptions: Per patient no refills needed today 01-22-2023 Jan, Vitamin D deficiency (ICD-10 - E55.9) 02/08/2021 Vit. d 13.7, Vitamin D Rx as above, then 2000iu daily ongoing Jan, Dietary counseling and surveillance (ICD-10 - Z71.3) Learning About Healthy Weight material was published to portal Jan, Hyperlipidemia (ICD-10 - E78.5) 02/08/21 ldl 46 at goal, trig. 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 Proteins are important for building muscles and bones. Proteins are also needed to fight infections, help the blood to clot, and keep body fluids in balance. Proteinuria may be mild and temporary, or it may be an early sign of kidney disease. The kidneys make urine. Healthy kidneys also keep substances like proteins from leaving the blood and ending up inthe urine. What are the causes? This condition may be caused by damage to the kidneys or by temporary causes such as fever or stress. Proteinuria may happen when the kidneys are not working well. Healthy kidneys have filters (glomeruli) that keep proteins out of the urine. Proteinuria may mean that the glomeruli are damaged. The main causes of this type of damage are: Diabetes. High blood pressure. Other causes of kidney damage can also cause proteinuria, such as: Diseases of the immune system, such as lupus, rheumatoid arthritis, sarcoidosis, and Goodpasture syndrome. Heart disease or heart failure. Kidney infection. Certain cancers, including kidney cancer, lymphoma, leukemia, and multiple myeloma. Amyloidosis. This is a disease that causes abnormal proteins to build up in body tissues. Reactions to certain medicines, such as NSAIDs. Injuries or poisons (toxins). High blood pressure that occurs during (preeclampsia and eclampsia). Temporary proteinuria may result from conditions that put stress on the kidneys. These conditions usually do not cause kidney damage. They include: Fever. Exposure to cold or heat. Emotional or physical stress. Extreme exercise. Standing for long periods of time. What increases the risk? You are more likely to develop this condition if you: Have diabetes. Have high blood pressure. Have heart disease or heart failure. Have an immune disease, cancer, or other disease that affects the kidneys. Have a family history of kidney disease. Are 65 years of age or older. Are overweight. Are of , , /, or descent. Are . Have an infection. What are the signs or symptoms? Mild proteinuria may not cause symptoms. As more proteins enter the urine, symptoms of kidney disease may develop, such as: Foamy urine. Swelling of the face, abdomen, hands, legs, or feet (edema). Needing to urinate frequently. Fatigue. Difficulty sleeping. Dry and itchy skin. Nausea and vomiting. Muscle cramps. Shortness of breath. How is this diagnosed? This condition may be diagnosed with a urine test. You may have this test as part of a routine physical exam or because you have symptoms of kidney disease or risk factors for kidney disease. You mayalso have: Blood tests to measure the level of a certain substance (creatinine) that increases with kidney disease. Imaging tests of your kidney, such as a CT scan or an ultrasound, to look for signs of kidney damage. How is this treated? If your proteinuria is mild or temporary, treatment may not be needed for this condition. Your health care provider may show you how to monitor the level of protein in your urine at home. Identifyingproteinuria early is important so that the cause of the condition can be treated. Treatment for this condition depends on the cause of your proteinuria. Treatment may include: Making diet and lifestyle changes. Getting blood pressure under control. Getting blood sugar under control, if you have diabetes. Managing any other medical conditions you have that affect your kidneys. Giving , if you are . Avoiding medicines that damage your kidneys. In severe cases, kidney disease may need to be treated with medicines or dialysis. Follow these instructions at home: Activity Return to your normal activities as told by your health care provider. Ask your health care provider what activities are safe for you. Ask your health care provider to recommend an exercise program. General instructions Check your protein levels at home if directed by your health care provider. Follow instructions from your health care provider about eating or drinking restrictions. If you are overweight, ask your health care provider about diets that can help you get to a healthyweight. Take mbwj-eog-llknxni and prescription medicines only as told by your health care provider. Keep all follow-up visits as told by your health care provider. This is important. Contact a health care provider if: You have new symptoms. Your symptoms get worse or do not improve. Get help right away if you: Have back pain. Have diarrhea. Vomit. Have a fever. Have a rash. Summary Proteinuria is when there is too much protein in the urine. Proteinuria may be mild and temporary, or it may be an early sign of kidney disease. This condition may be diagnosed with a urine test. Treatment for this condition depends on the cause of your proteinuria. Treatment may include diet and lifestyle changes, blood pressure and blood sugar management, and avoiding medicines that may damage the kidneys. If the proteinuria is severe, it may need to be treated with medicines or dialysis. This information is not intended to replace advice given to you by your health care provider. Make sure you discuss any questions you have with your health care provider. Document Released: 12/11/2006 Document Revised: 06/08/2019 Document Reviewed: 06/08/2019 [employer] Patient Education 2020 [employer]. Follow Up Care 10/15/2022 13:24:32 With:LEANDRA TO PA-C, URL Address: [address] [place] [address] When:1 year [facility] [place] 11-15-2022 Evaluation note* Encounter Date Diagnosis Assessment Notes Treatment Notes Treatment Clinical Notes Sep, Type 2 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 Controlled, Type 2 diabetes A1c 7.0%=== Toleration of A1c 7.0% d/t insulin use, variabiliy and likely poor toleration of low blood glucose 2. BG at goal. Patient restarted Jardiance after last appointment against my recommendation, secondary to concerns of elevated blood sugar. I have compromised and will have patient continue Jardiance 12.5 mg p.o. daily. Next urinary tract infection/yeast infection patient will discontinue Jardiance for good. This is through patient assistance and will need to be discontinued at that time. Patient will continue Lantus 30 units in a.m. and 22 units in p.m. We have discussed that any need for better glycemic control should escalate insulin. A.m. fasting should guide p.m. insulin dosing. If a.m. fasting greater than 150 3 of 7 days in a week could escalate by 1 unit. If supper glucose is greater than 150 3 of 7 days in a week should escalate a.m. Lantus by 1 unit. She will continue Apidra ICR 1:5 and ISS 1:20 She can continue Tradjenta 5 mg p.o. daily. She does have retinopathy and is getting current ocular injections through [facility]. We will hold on GLP-1 medications at this point. I will see her back in clinic in 8 weeks and we will consider labs at that time/evaluate glycemic control. Patient did see Dr Leigh Research shows that stamina with the current regime may fatigue, as would outcomes and CGM is equitable compaired to disease instability. CGM necessary for safety for Elizabeth. She and do realize that if unable to wear CGM for any reason, they should revert to AC/HS fingersticks. Due to comorbidities and poor tolerance of hypoglycemia, high variability on insulin I have encouraged her to maintain CGM at all times. 3. Patient is alert, oriented and receptive to making changes or counseling. Notes: Seen for an assessment of current glucose pattern, changes in treatment plan, with greater than 50% of this time spent in counseling and coordination of care related to diabetes, risks, and benefits of treatment, medications, side effects, and counseling. Given handouts to reinforce concepts reviewed during counseling. TOPICS REVIEWED: 1. Time was spent reviewing: a. Basic concepts of diabetes, progressive beta cell , concepts of basal/bolus/correct marissa insulin requirements. Basal: The goal is fasting blood glucose of 90-130mg. IF fasting blood glucose starts to run under 100mg 3x's/ week, decrease dose by 10%. Bolus: The goal is to hold the blood glucose level steady meal to meal. If pt. is going to have increased physical activity after a meal, decrease the schedule meal dose prior to the activity by 30-50%. If pt. skips a meal do not take this dose. Correction: The goal is to correct an elevated glucose back into the 100-150mg range b. Nutrition: Concepts of healthy diet, encouraged to decrease saturated fat in diet and increase non-starchy vegetables and fruits in diet. BMI: Pt. needs to select one small change to decrease caloric intake or increase physical activity to help decrease weight. c. Correct treatment of hypoglycemia, carry a glucose source at all times on your person, in vehicles, and at bedside. Can use glucose tablets/4, four ounces of pop or juice equal to 15 G of carbohydrate. Blood glucose should be 100 mg/dl or higher when driving. d. ADA glucose goals for age and medical complexity reviewed e. Patient questions addressed 2. Activity/exercise: Encouraged to start any form of physical activity. Start low level and increase slowly to a minimal goal of 150 minutes/week. Limit activity to what is allowed by other issues such as cardiac, pulmonary or orthopedic restrictions. 3. Standards of care: Reminded to have an annual dilated eye exam, A1C every 3 months, urine testing for microalbumin once/year, check feet daily and report any cuts or sores that do not appear to be healing. 4. Meter: Plan to check blood glucose: Please check blood glucose levels 4 times/day. Back to back meals reveal effectiveness of bolus dosing. The blood glucose data is used to determine insulin doses and confirm symptoms for hypoglycemia and hyperglcyemia. The blood glucose data is used to determine insulin doses, and confirm symptoms for hypoglycemia and hyperglcyemia. 5. [facility]. Contact office if any issues or concerns with patterns of hypoglycemia, hyperglycemia, or diabetes medication issues. 6. Prescriptions: Per patient will be needing Patient Assisitance medications, [employer] for Apidra and Lantus, cresencio Bagley form is sent when its time for a shipment, patient will call and check, Nichole Zaseshade for Jardaince and Tradjenta, cresencio Bagley patient has to call for refill request, Patient informed and will call Sep, Vitamin D deficiency (ICD-10 - E55.9) 02/08/2021 Vit. d 13.7, Vitamin D Rx as above, then 2000iu daily ongoing Sep, Dietary counseling and surveillance (ICD-10 - Z71.3) Learning About Healthy Weight material was published to portal Sep, Hyperlipidemia (ICD-10 - E78.5) 02/08/21 ldl 46 at goal, trig. 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 Her renal US showed unremarkable kidneys. Baseline serum creatinine is 0.9 to 1.2 mg/dL. I discussed with her the importance of good DM control to surround on the progression of CKD. Aug, Diabetes mellitus with chronic kidney disease (ICD-10 - E11.22) Blood sugars are well controlled. Continue to follow with diabetic nurse practitioner for DM management. She will take Jardiance 40 and we will continue that. Due to her history of chronic hypotension she is not a suitable candidate for MARY ARB or finerenone. Aug, Vitamin D deficiency (ICD-10 - E55.9) Calcium within normal limit. Continue oral vitamin D Aug, Chronic hypotension (ICD-10 - I95.89) Blood pressure is controlled. She appears to be euvolemic. Continue Lasix and potassium chloride. She also takes midodrine [facility] Other 10-20-2022 Hospital Discharge instructions Patient Education 08/23/2022 10:20:29 Infection Prevention in the Home Infection Prevention in the Home If you have an infection, may have been exposed to an infection, or are taking care of someone who has an infection, it is important to know how to keep the infection from spreading. Follow your health care provider's instructions and use these guidelines to help stop the spread of infection. How infections are spread In order for an infection to spread, the following must be present: A germ. This may be a virus, bacteria, fungus, or parasite. A place for the germ to live. This may be: ?On or in a person, animal, plant, or food. ?In soil or water. ?On surfaces, such as a door handle. A person or animal who can develop a disease if the germ enters the body (host). The host does not have resistance to the germ. A way for the germ to enter the host. This may occur by: ?Direct contact with an infected person or animal. This can happen through shaking hands or hugging. Some germs can also travel through the air and spread to others. This can happen when an infected person coughs or sneezes on or near other people. ?Indirect contact. This occurs when the germ enters the host through contact with an infected object. Examples include: ?Eating or drinking food or water that has the germ (is contaminated). ?Touching a contaminated surface with your hands, and then touching your face, eyes, nose, or mouth. Supplies needed: Soap. Alcohol-based hand furniture refinisher. Standard cleaning products. Disinfectants, such as bleach. Reusable cleaning cloths, sponges, or paper towels. Disposable or reusable utility gloves. How to prevent infection from spreading There are several things that you can do to help prevent infection from spreading. Take these general actions Everyone should take the following actions to prevent the spread of infection: Wash your hands often with soap and water for at least 20 seconds. If soap and water are not available, use alcohol-based hand furniture refinisher. Avoid touching your face, mouth, nose, or eyes. Cough or sneeze into a tissue, sleeve, or elbow instead of into your hand or into the air. ?If you cough or sneeze into a tissue, throw it away immediately and wash your hands. Keep your bathroom clean Provide soap. Change towels and washcloths frequently. Change toothbrushes often and store them separately in a clean, dry place. Clean and disinfect all surfaces, including the toilet, floor, tub, shower, and sink. Do not share personal items, such as razors, toothbrushes, deodorant, blakely, brushes, towels, and washcloths. Maintain hygiene in the kitchen Wash your hands before and after preparing food and before you eat. Clean the inside of your refrigerator each week. Keep your refrigerator set at 40 F (4 C) or less, and set your freezer at 0 F ( 18 C) or less. Keep work surfaces clean. Disinfect them regularly. Wash your dishes in hot, soapy water. Air-dry your dishes or use a vice president of nursing. Do not share dishes or eating utensils. Handle food safely Store food carefully. Refrigerate leftovers promptly in covered containers. Throw out stale or spoiled food. Thaw foods in the refrigerator or microwave, not at room temperature. Serve foods at the proper temperature. Do not eat raw meat. Make sure it is cooked to the appropriate temperature. Cook eggs until they are firm. Wash fruits and vegetables under running water. Use separate cutting boards, plates, and utensils for raw foods and cooked foods. Use a clean spoon each time you sample food while cooking. Do laundry the right way Wear gloves if laundry is visibly soiled. Do not shake soiled laundry. Doing that may send germs into the air. Wash laundry in hot water. If you cannot wash the laundry right away, place it in a plastic bag and wash it as soon as possible. Be careful around animals and pets Wash your hands before and after touching animals. If you have a pet, ensure that your pet stays clean. Do not let people with weak immune systems touch bird droppings, fish tank water, or a litter box. ?If you have a pet cage or litter box, be sure to clean it every day. If you are sick, stay away from animals and have someone else care for them if possible. How to clean and disinfect objects and surfaces Precautions Some disinfectants work for certain germs and not others. Read the dive superintendent's instructions or read online resources to determine if the product you are using will work for the germ you are tryingto remove. If you choose to use bleach, use it safely. Never mix it with other cleaning products, especially those that contain ammonia. This mixture can create a dangerous gas that may be deadly. Keep proper movement of fresh air in your home (ventilation). Pour used mop water down the utility sink or toilet. Do not pour this water down the kitchen sink. Objects and surfaces If surfaces are visibly soiled, clean them first with soap and water before disinfecting. Disinfect surfaces that are frequently touched every day. This may include: ?Counters. ?Tables. ?Doorknobs. ?Sinks and faucets. ?Electronics, such as: ?Phones. ?Remote controls. ?Keyboards. ?Computers and tablets. Cleaning supplies Some cleaning supplies can breed germs. Take good care of them to prevent germs from spreading. To do this: Soak toilet brushes, mops, and sponges in bleach and water for 5 minutes after each use, or according to dive superintendent's instructions. Wash reusable cleaning cloths and sanitize sponges after each use. Throw away disposable gloves after one use. Replace reusable utility gloves if they are cracked or torn or if they start to peel. Additional actions if you are sick If you live with other people: Avoid close contact with those around you. Stay at least 3 ft (1 m) away from others, if possible. Use a separate bathroom, if possible. If possible, sleep in a separate bedroom or in a separate bed to prevent infecting other household members. ?Change bedroom linens each week or whenever they are soiled. Have everyone in the household wash hands often with soap and water. If soap and water are not available, use alcohol-based hand furniture refinisher. In general: Stay home except to get medical care. Call ahead before visiting your health care provider. Ask others to get groceries and household supplies and to refill prescriptions for you. Avoid public areas. Try not to take public transportation. If you can, wear a mask if you need to go out of the house, or if you are in close contact with someone who is not sick. Avoid visitors until you have completely recovered, or until you have no signs and symptoms of infection. Avoid preparing food or providing care for others. If you must prepare food or provide care for others, wear a mask and wash your hands before and after doing these things. Where to find more information Centers for Disease Control and Prevention: www.cdc.gov/nonpharmaceutical-interventions/index.html World Health Organization (WHO): www.who.int/infection-prevention/about/en/ Association for Professionals in Infection Control and Epidemiology: professionals.site.apic.org/wtftqmdr-vr-jhfx/rzr-ubtoblrpse-yhfysnp/home/ Summary It is important to know how to keep the infection from spreading. Make sure everyone in your household washes their hands often with soap and water. Disinfect surfaces that are frequently touched every day. If you are sick, stay home except to get medical care. This information is not intended to replace advice given to you by your health care provider. Make sure you discuss any questions you have with your health care provider. Document Released: 07/30/2009 Document Revised: 02/16/2020 Document Reviewed: 01/15/2020 [employer] Patient Education 2020 [employer]. Follow Up Care 08/16/2022 11:25:41 With:XOCHITL GREY, LEANDRA Millan, URL Address: [address] [place] [address] [address] [address] When:4 weeks [facility] [place] 07-21-2022 Evaluation note* Encounter Date Diagnosis Assessment Notes Treatment Notes Treatment Clinical Notes May, Type 2 diabetes mellitus with diabetic chronic kidney disease (ICD-10 - E11.22) GLP1RA: None SGLT2i: Jardiance 25 mg concern for recent UTI/hospitaliz ation STOP INSULIN Basal: Lantus 30 units a.m. and 24 units p.m. INSULIN Bolus: Apidra, ISS: 1:20 ICR: 1:3 DPP4: Tradjenta 5 mg daily CGM: Anali 1. Controlled, Type 2 diabetes A1c 6.5%=== Toleration of A1c 7-8 % d/t insulin use, variabiliy and likely poor toleration of low blood glucose 2. Patient restarted jardiance after last appointments reommendations to stop related to hospitalizaiton for severe UTI severe with dehydration. Concern for Jardiance contribution/ Also concerns of contribution to patient's orthostatic hypotension. She has good blood glucose control of late with Lantus, Apidra and Tradjenta. Jardiance glucose dependant, unclear benefit to outway risk. Nephro followup outstanding. Pending renal ultrasound and labs then followup. Will not reinitiate Jardiance without correlation, corroboration with cardiology and nephrology due to patient's labile blood pressure, history of severe UTI, questionable JOSÉ MANUEL in January of this year. Patient will communicate any concerns of edema to Dr. Hayes for management. She is aware she needs to weigh herself daily and report fluctuations to their office Research shows that stamina with the current regime may fatigue, as would outcomes and CGM is equitable compaired to disease instability. CGM necessary for safety for Elizabeth. She and do realize that if unable to wear CGM for any reason, they should revert to AC/HS fingersticks. Due to comorbidities and poor tolerance of hypoglycemia, high variability on insulin I have encouraged her to maintain CGM at all times. 3. Patient is alert, oriented and receptive to making changes or counseling. Notes: Seen for an assessment of current glucose pattern, changes in treatment plan, with greater than 50% of this time spent in counseling and coordination of care related to diabetes, risks, and benefits of treatment, medications, side effects, and counseling. Given handouts to reinforce concepts reviewed during counseling. TOPICS REVIEWED: 1. Time was spent reviewing: a. Basic concepts of diabetes, progressive beta cell , concepts of basal/bolus/correcti ve insulin requirements. Basal: The goal is fasting blood glucose of 90-130mg. IF fasting blood glucose starts to run under 100mg 3x's/ week, decrease dose by 10%. Bolus: The goal is to hold the blood glucose level steady meal to meal. If pt. is going to have increased physical activity after a meal, decrease the schedule meal dose prior to the activity by 30-50%. If pt. skips a meal do not take this dose. Correction: The goal is to correct an elevated glucose back into the 100-150mg range b. Nutrition: Concepts of healthy diet, encouraged to decrease saturated fat in diet and increase non-starchy vegetables and fruits in diet. BMI: Pt. needs to select one small change to decrease caloric intake or increase physical activity to help decrease weight. c. Correct treatment of hypoglycemia, carry a glucose source at all times on your person, in vehicles, and at bedside. Can use glucose tablets/4, four ounces of pop or juice equal to 15 G of carbohydrate. Blood glucose should be 100 mg/dl or higher when driving. d. ADA glucose goals for age and medical complexity reviewed e. Patient questions addressed 2. Activity/exercise: Encouraged to start any form of physical activity. Start low level and increase slowly to a minimal goal of 150 minutes/week. Limit activity to what is allowed by other issues such as cardiac, pulmonary or orthopedic restrictions. 3. Standards of care: Reminded to have an annual dilated eye exam, A1C every 3 months, urine testing for microalbumin once/year, check feet daily and report any cuts or sores that do not appear to be healing. 4. Meter: Plan to check blood glucose: Please check blood glucose levels 4 times/day. Back to back meals reveal effectiveness of bolus dosing. The blood glucose data is used to determine insulin doses and confirm symptoms for hypoglycemia and hyperglcyemia. The blood glucose data is used to determine insulin doses, and confirm symptoms for hypoglycemia and hyperglcyemia. 5. [facility] Contact office if any issues or concerns with patterns of hypoglycemia, hyperglycemia, or diabetes medication issues. 6. Prescriptions: Per patient will be needing Patient Assisitance medications, [employer] for Apidra and Lantus, per Yudi form is sent when its time for a shipment, patient will call and check, Nichole Pool for Jardaince and Tradjenta, per Yudi patient has to call for refill request, Patient informed and will call May, Vitamin D deficiency (ICD-10 - E55.9) 02/08/2021 Vit. d 13.7, Vitamin D Rx as above, then 2000iu daily ongoing May, Dietary counseling and surveillance (ICD-10 - Z71.3) Learning About Healthy Weight material was published to portal May, Hyperlipidemia (ICD-10 - E78.5) 02/08/21 ldl 46 at goal, trig. 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 Did have discussion regarding how these things can affect self-care. Patient have evidence of prolonged hypoglycemia where she endorsed not correcting and not doing so not for self-harm but because of depression, and apathy. Explained to her that the hypoglycemia can contribute to and exacerbate those feelings. We discussed possible benefits of managing depression with pharmacologic. She will bring this up with her primary care physician. May, BMI 31.0-31.9,adult (ICD-10 - Z68.31) May, Other see above [facility] Other 04-20-2022 Evaluation note* Encounter Date Diagnosis Assessment Notes Treatment Notes Treatment Clinical Notes Feb, Type 2 diabetes mellitus with diabetic chronic kidney disease (ICD-10 - E11.22) GLP1RA: None SGLT2i: Jardiance 25 mg concern for recent UTI/hospitaliz ation STOP INSULIN Basal: Lantus 30 units a.m. and 24 units p.m. INSULIN Bolus: Apidra, ISS: 1:20 ICR: 1:3 DPP4: Tradjenta 5 mg daily CGM: Anali 1. Controlled, Type 2 diabetes A1c 6.7% 2. Recent hospitalization for UTI/ dehydration. 1st UTI recollected per patient, but severe with dehydration. Concern for Jardiance contribution, and did not discontinue as instructed with decreased intake/ acute illness. Also concerns of contribution to patient's orthostatic hypotension. She has good blood glucose control of late, will hold Jardiance to see if she can maintain current glycemia with Lantus, Apidra and Tradjenta. She has good control now without objective evidence of hypoglycemia. A1c % goal for ELIZABETH with comorbities is in the 7's as I don't feel she would tolerate hypoglycemia well. History of prolonged lows, concommitant orthostatic hypotension. Tolerating LANTUS to 30 u qam and pm dose reduced during hospitalization to 20 u_ _ we will maintain this routine. Apidra ISS maintained at 1:20 AC/HS and 1/2 dose only if > 200 at HS. Maintained ICR to 1:5 to avoid post prandial low blood sugar. eGFR 35, REFERRAL TO NEPHROLOGY 2020 STILL pending rescheduling of missed followup. THEY WILL SCHEDULE TODAY. Reviewed how to monitor anali for average glucose and would tolerate average glucoses running 160 and under. They state understanding. Defered Wheelchair certification to PCP. Gave information for new PCP in [facility] and they are looking for change. All reviewed with patient and , all questions were answered. Research shows that stamina with the current regime may fatigue, as would outcomes and CGM is equitable compaired to disease instability. CGM necessary for safety for Elizabeth. She and do realize that if unable to wear CGM for any reason, they should revert to AC/HS fingersticks. 3. Patient is alert, oriented and receptive to making changes or counseling. Notes: Seen for an assessment of current glucose pattern, changes in treatment plan, with greater than 50% of this time spent in counseling and coordination of care related to diabetes, risks, and benefits of treatment, medications, side effects, and counseling. Given handouts to reinforce concepts reviewed during counseling. TOPICS REVIEWED: 1. Time was spent reviewing: a. Basic concepts of diabetes, progressive beta cell , concepts of basal/bolus/correcti ve insulin requirements. Basal: The goal is fasting blood glucose of 90-130mg. IF fasting blood glucose starts to run under 100mg 3x's/ week, decrease dose by 10%. Bolus: The goal is to hold the blood glucose level steady meal to meal. If pt. is going to have increased physical activity after a meal, decrease the schedule meal dose prior to the activity by 30-50%. If pt. skips a meal do not take this dose. Correction: The goal is to correct an elevated glucose back into the 100-150mg range b. Nutrition: Concepts of healthy diet, encouraged to decrease saturated fat in diet and increase non-starchy vegetables and fruits in diet. BMI: Pt. needs to select one small change to decrease caloric intake or increase physical activity to help decrease weight. c. Correct treatment of hypoglycemia, carry a glucose source at all times on your person, in vehicles, and at bedside. Can use glucose tablets/4, four ounces of pop or juice equal to 15 G of carbohydrate. Blood glucose should be 100 mg/dl or higher when driving. d. ADA glucose goals for age and medical complexity reviewed e. Patient questions addressed 2. Activity/exercise: Encouraged to start any form of physical activity. Start low level and increase slowly to a minimal goal of 150 minutes/week. Limit activity to what is allowed by other issues such as cardiac, pulmonary or orthopedic restrictions. 3. Standards of care: Reminded to have an annual dilated eye exam, A1C every 3 months, urine testing for microalbumin once/year, check feet daily and report any cuts or sores that do not appear to be healing. 4. Meter: Plan to check blood glucose: Please check blood glucose levels 4 times/day. Back to back meals reveal effectiveness of bolus dosing. The blood glucose data is used to determine insulin doses and confirm symptoms for hypoglycemia and hyperglcyemia. The blood glucose data is used to determine insulin doses, and confirm symptoms for hypoglycemia and hyperglcyemia. 5. [facility]. Contact office if any issues or concerns with patterns of hypoglycemia, hyperglycemia, or diabetes medication issues. 6. Prescriptions: Per patient/ no refills today 02-21-22 Feb, Vitamin D deficiency (ICD-10 - E55.9) 02/08/2021 Vit. d 13.7, Vitamin D Rx as above, then 2000iu daily ongoing Feb, Dietary counseling and surveillance (ICD-10 - Z71.3) Learning About Healthy Weight material was published to portal Feb, Hyperlipidemia (ICD-10 - E78.5) 02/08/21 ldl 46 at goal, trig. 290, on statin, f/u with cardiology Feb, HTN (hypertension) (ICD-10 - I10) f/u with pcp Feb, [facility] current use of insulin (ICD-10 - Z79.4) Feb, Depression (ICD-10 - F32.9) Patient and patient's endorse depression, anxiety. Did have discussion regarding how these things can affect self-care. Patient have evidence of prolonged hypoglycemia where she endorsed not correcting and not doing so not for self-harm but because of depression, and apathy. Explained to her that the hypoglycemia can contribute to and exacerbate those feelings. We discussed possible benefits of managing depression with pharmacologic. She will bring this up with her primary care physician. Feb, Unresponsive episode (ICD-10 - R41.89) Long discussion regarding patient's unresponsive episode greater than 2 weeks ago as described above. Encouraged emergency services in this situation, check blood glucose, avoid nitro In this type of situation. Nitroglycerin should be reserved for anginal chest pain and could have contributed to worsened or prolonged decreased responsiveness Secondary to hypotension. Cannot fully rule out seizure but not especially likely secondary to presentation but should remain a consideration. Blood glucose at the time was unclear. Will forward to primary care. Also will send to cardiology per patient's request. Feb, BMI 32.0-32.9,adult (ICD-10 - Z68.32) Feb, Other see above [facility] Other 03-31-2022 Evaluation note* Encounter Date Diagnosis Assessment Notes Treatment Notes Treatment Clinical Notes Jan, Type 2 diabetes mellitus with other diabetic kidney complication (ICD-10 - E11.29) [facility] Other 01-05-2022 Evaluation note* Encounter Date Diagnosis Assessment Notes Treatment Notes Treatment Clinical Notes Nov, Type 2 diabetes mellitus with diabetic chronic kidney disease (ICD-10 - E11.22) Learning About Diabetes and Your Teeth material was printed 1. Controlled, Type 2 diabetes A1c 6.5% 2. Good control without ovjectie evidence of Hypoglycemia. A1c goal for ELIZABETH with comorbities is 7% as i don't feel she would tolerate hypoglycemia well. Anali +1, [facility] report 26 October through 08 November 2021. There is only 13% CGM active time. Patient has not had CGM on for past 3- 4 days d/t delayed sensor shipment. Available data reflects average glucose 160 variability 27.4 time and ranges: Greater than 250 3% 181-250 24% 70-180 73% 54-69 0% less than 54 0% History of prolonged lows, concommitant orthostatic hypotension_ _ on midodrine, cannot afford low blood sugars, not on any particular trend, but once during fasting episode. Tolerating LANTUS to 30 u qam and will reduce pm dose to 24 to avoid overnight lows. I have softened ISS to 1:30 AC/HS and o1/2 dose only if > 200 at HS. Softened ICR to 1:5 to avoid post prandial low blood sugar. eGFR 35, REFERRAL TO NEPHROLOGY 2020 pending rescheduling of missed followup. Continue Jardiance noting that it does cause glucose dependent glucosuria and could affect fluid balance, better to reduce FUROSIMIDE if concerned for diuretic effect as SGLT2i has indication for secondary cardiovascular protection.. All reviewed with patient and , all questions were answered. 3. Patient is alert, oriented and receptive to making changes or counseling. Notes: Seen for an assessment of current glucose pattern, changes in treatment plan, with greater than 50% of this time spent in counseling and coordination of care related to diabetes, risks, and benefits of treatment, medications, side effects, and counseling. Given handouts to reinforce concepts reviewed during counseling. TOPICS REVIEWED: 1. Time was spent reviewing: a. Basic concepts of diabetes, progressive beta cell , concepts of basal/bolus/correct marissa insulin requirements. Basal: The goal is fasting blood glucose of 90-130mg. IF fasting blood glucose starts to run under 100mg 3x's/ week, decrease dose by 10%. Bolus: The goal is to hold the blood glucose level steady meal to meal. If pt. is going to have increased physical activity after a meal, decrease the schedule meal dose prior to the activity by 30-50%. If pt. skips a meal do not take this dose. Correction: The goal is to correct an elevated glucose back into the 100-150mg range b. Nutrition: Concepts of healthy diet, encouraged to decrease saturated fat in diet and increase non-starchy vegetables and fruits in diet. BMI: Pt. needs to select one small change to decrease caloric intake or increase physical activity to help decrease weight. c. Correct treatment of hypoglycemia, carry a glucose source at all times on your person, in vehicles, and at bedside. Can use glucose tablets/4, four ounces of pop or juice equal to 15 G of carbohydrate. Blood glucose should be 100 mg/dl or higher when driving. d. ADA glucose goals for age and medical complexity reviewed e. Patient questions addressed 2. Activity/exercise: Encouraged to start any form of physical activity. Start low level and increase slowly to a minimal goal of 150 minutes/week. Limit activity to what is allowed by other issues such as cardiac, pulmonary or orthopedic restrictions. 3. Standards of care: Reminded to have an annual dilated eye exam, A1C every 3 months, urine testing for microalbumin once/year, check feet daily and report any cuts or sores that do not appear to be healing. 4. Meter: Plan to check blood glucose: Please check blood glucose levels 4 times/day. Back to back meals reveal effectiveness of bolus dosing. The blood glucose data is used to determine insulin doses and confirm symptoms for hypoglycemia and hyperglcyemia. The blood glucose data is used to determine insulin doses, and confirm symptoms for hypoglycemia and hyperglcyemia. 5. [facility]. Contact office if any issues or concerns with patterns of hypoglycemia, hyperglycemia, or diabetes medication issues. 6. Prescriptions: Per patient/ no refills needed today 11-08-21 Nov, Vitamin D deficiency (ICD-10 - E55.9) 02/08/2021 Vit. d 13.7, Vitamin D Rx as above, then 2000iu daily ongoing Nov, Dietary counseling and surveillance (ICD-10 - Z71.3) Learning About Healthy Weight material was published to portal Nov, Hyperlipidemia (ICD-10 - E78.5) 02/08/21 ldl 46 at goal, trig. 290, on statin, f/u with cardiology Nov, HTN (hypertension) (ICD-10 - I10) f/u with pcp Nov, [facility] current use of insulin (ICD-10 - Z79.4) Nov, BMI 33.0-33.9,adult (ICD-10 - Z68.33) see above Nov, Depression (ICD-10 - F32.9) Patient and patient's endorse depression, anxiety. Did have discussion regarding how these things can affect self-care. Patient have evidence of prolonged hypoglycemia where she endorsed not correcting and not doing so not for self-harm but because of depression, and apathy. Explained to her that the hypoglycemia can contribute to and exacerbate those feelings. We discussed possible benefits of managing depression with pharmacologic. She will bring this up with her primary care physician. Nov, Unresponsive episode (ICD-10 - R41.89) Long discussion regarding patient's unresponsive episode greater than 2 weeks ago as described above. Encouraged emergency services in this situation, check blood glucose, avoid nitro In this type of situation. Nitroglycerin should be reserved for anginal chest pain and could have contributed to worsened or prolonged decreased responsiveness Secondary to hypotension. Cannot fully rule out seizure but not especially likely secondary to presentation but should remain a consideration. Blood glucose at the time was unclear. Will forward to primary care. Also will send to cardiology per patient's request. [facility] Other 12-13-2021 Evaluation note* Encounter Date Diagnosis Assessment Notes Treatment Notes Treatment Clinical Notes Oct, Type 2 diabetes mellitus with diabetic chronic kidney disease (ICD-10 - E11.22) [facility] Other 09-30-2021 Evaluation note* Encounter Date Diagnosis Assessment Notes Treatment Notes Treatment Clinical Notes Jul, Quinn hy kid w cr kid I-IV (ICD-10 - I12.9) Blood pressure is controlled. She appears to be euvolemic. Continue Lasix and potassium chloride. She also takes midodrine Jul, Chronic kidney disea se, stage III (moderate) (ICD-10 - N18.30) Thanks for referring Mrs. Manrique to our office for evaluation and management of CKD. As you know she has a longstanding DM with HTN and likely has a CKD as a result of these comorbidities. Her most recent serum creatinine was 1.5 mg/dL. I have ordered a renal ultrasound to evaluate the renal anatomy. I have ordered UA & UPCR to evaluate for hematuria and proteinuria. Jul, Diabetes mellitus wi th chronic kidney disease (ICD-10 - E11.22) Blood sugars are well controlled. Continue to follow with diabetic nurse practitioner for DM management. She is not on MARY or ARB due to unclear reason. Jul, Vitamin D deficiency (ICD-10 - E55.9) Calcium within normal limit. Continue oral vitamin D Jul, Secondary hyperparathyroidism (ICD-10 - N25.81) We will check PTH [facility] Other 10-14-2020 History of Present illness Narrative* Patient is here for follow-up continue management for coronary disease previous bypass surgery 2017, ischemic cardiomyopathy, hypertension and history of chronic orthostatic hypotension due to diabetic autonomic dysfunction. Since last time I saw her her main complaint is fatigue, tiredness and shortness of breath. She does have history of asthma and has been seen by pulmonary for that. She underwent evaluation last year with an echocardiogram with EF around 45-50%. Stress test showed no ischemia back in last year. She denies changes in cardiac status symptoms. Continues to complain of orthostatic hypotension. * ASSESSMENT: * 1. Coronary artery disease with with bypass surgery almost 4 years ago. She described symptoms of shortness of breath. No chest pain. Previous testing noted and reviewed with patient with patient known to have asthma * 2. Chronic orthostatic hypotension due to autonomic diabetic neuropathy * 3. Ischemic cardiomyopathy, improved. MUGA scan showed ejection fraction of 40-45 %. * 4. INTOLERANCE TO MARY INHIBITOR DUE TO CHRONIC ORTHOSTATIC HYPOTENSION. * 5. History of hypertension, controlled with component of orthostatic hypotension due to autonomic neuropathy. She takes midodrine. * 6. Shortness of breath with the above factors, seems to be stable with functional class II. * 7. Obesity with no weight changes. * 8. Diabetes mellitus she reports has not been very well-controlled * 9. Intermittent edema * 10. Hyperlipidemia with improvement of her triglyceride from February noted and reviewed with her. * RECOMMENDATIONS: * 1. The results of her prior stress test and echocardiogram noted and reviewed with her. We discussed proceeding with cardiac catheterization considering continuation of complaint of shortness of breath, but she declined and wanted to defer * 2. I suggested to her to remain on the same medication, * 3. Patient was consulted on losing weight, exercise and dietary modification and was encouraged to use her stationary bike. * 4. We'll see her back and 6 month in follow-up or earlier if the need arise * 5. Continue to encourage her to optimize her diabetic control * 6. Continue to encourage the patient to maintain high fluid intake, wear compression stocking and use Midrin as needed [facility] 250 DO Work Phone: [phone] History of Present illness Narrative* Patient is here for follow-up continue management for coronary disease previous bypass surgery 2017, ischemic cardiomyopathy, hypertension and history of chronic orthostatic hypotension due to diabetic autonomic dysfunction. Since last time I saw her her main complaint is fatigue, tiredness and shortness of breath. She does have history of asthma and has been seen by pulmonary for that. She underwent evaluation last year with an echocardiogram with EF around 45-50%. Stress test showed no ischemia back in last year. She denies changes in cardiac status symptoms. Continues to complain of orthostatic hypotension. * ASSESSMENT: * 1. Coronary artery disease with with bypass surgery almost 4 years ago. She described symptoms of shortness of breath. No chest pain. Previous testing noted and reviewed with patient with patient known to have asthma * 2. Chronic orthostatic hypotension due to autonomic diabetic neuropathy * 3. Ischemic cardiomyopathy, improved. MUGA scan showed ejection fraction of 40-45 %. * 4. INTOLERANCE TO MARY INHIBITOR DUE TO CHRONIC ORTHOSTATIC HYPOTENSION. * 5. History of hypertension, controlled with component of orthostatic hypotension due to autonomic neuropathy. She takes midodrine. * 6. Shortness of breath with the above factors, seems to be stable with functional class II. * 7. Obesity with no weight changes. * 8. Diabetes mellitus she reports has not been very well-controlled * 9. Intermittent edema * 10. Hyperlipidemia with improvement of her triglyceride from February noted and reviewed with her. * RECOMMENDATIONS: * 1. The results of her prior stress test and echocardiogram noted and reviewed with her. We discussed proceeding with cardiac catheterization considering continuation of complaint of shortness of breath, but she declined and wanted to defer * 2. I suggested to her to remain on the same medication, * 3. Patient was consulted on losing weight, exercise and dietary modification and was encouraged to use her stationary bike. * 4. We'll see her back and 6 month in follow-up or earlier if the need arise * 5. Continue to encourage her to optimize her diabetic control * 6. Continue to encourage the patient to maintain high fluid intake, wear compression stocking and use Midrin as needed [facility] 250 DO Work Phone: Evaluation + Plan note Future Appointments Appointment Date:10/11/2022 03:15:00 PM Scheduled Provider:LEANDRA TO PA-C Location:[facility] Appointment Type:URO Office Visit [facility] Evaluation + Plan note Future Appointments Appointment Date:10/11/2022 03:15:00 PM Scheduled Provider:LEANDRA TO PA-C Location:[facility] Appointment Type:URO Office Visit Diagnostic Tests Pending * [facility] Appointment Date:11/21/2023 02:00:00 PM Scheduled Provider:LEANDRA TO PA-C Location:[facility] Appointment Type:URO Office Visit [facility] Evaluation + Plan note Future Appointments Appointment Date:11/21/2023 02:00:00 PM Scheduled Provider:LEANDRA TO PA-C Location:[facility] Appointment Type:URO Office Visit Diagnostic Tests Pending * [facility] Information[email or web address] Other Evaluation noteNo assessment information available [facility] Work Phone: Evaluation note* Diagnosis CAD, multiple vessel- Primary Chest pain, unspecified type Essential hypertension, benign Ischemic cardiomyopathy Other specified forms of chronic ischemic heart disease Mixed hyperlipidemia Postoperative atrial fibrillation (CMS/HCC) SOB (shortness of breath) on exertion Shortness of breath Orthostatic hypotension documented in this encounter [facility] Work Phone: History general Narrative - Reported* Type Description Date Medical History Diabetes Mellitus Type 2 Medical History CKD Medical History Hypertension Medical History Migraines Medical History Anxiety and Depression Medical History postural hypotension Medical History asthma Medical History Eye injection @ [employer] Surgical History CABG x3 Surgical History triple bypass surgery 2017 Surgical History Carpal Tunnel Release Surgical History tonsillectomy and adenoidectomy Surgical History Total Hysterectomy 1989 Surgical History Partial Bowel Rescection Surgical History Cataract surgery 2019 Hospitalization History Chest Pain - triple bypa ss 12/2016 [facility] Other [place] general Narrative - Reported* Type Description Date Medical History Diabetes Mellitus Type 2 Medical History CKD Medical History Hypertension Medical History Migraines Medical History Anxiety and Depression Medical History postural hypotension Medical History asthma Medical History Eye injection @ [employer] Medical History high Cholesterol Surgical History CABG x3 Surgical History triple bypass surgery 2017 Surgical History Carpal Tunnel Release Surgical History tonsillectomy and adenoidectomy Surgical History Total Hysterectomy 1989 Surgical History Partial Bowel Rescection Surgical History Cataract surgery 2019 Hospitalization History Chest Pain - triple bypa ss 12/2016 Hospitalization History [facility] UTI Deh ydration 01-11-22 [facility] Other History of Present illness Narrative* Here for follow- up to management for coronary artery disease prior bypass surgery, chronic orthostatic hypotension, ischemic cardiomyopathy. Since last time I saw her she reports she was in the hospital for dehydration and elevated total CK and possible rhabdomyolysis. Apparently she had some diarrhea and was taking her diuretics. She report her diuretics were discontinued but continues to take po tassium. Her only complaint is continued debilitating symptoms of orthostatic hypotension. She denies chest pain * ASSESSMENT: * 1. Coronary artery disease with with bypass surgery back in 2017. She described symptoms of shortness of breath. No chest pain. Previous testing noted and reviewed with patient * 2. Chronic orthostatic hypotension due to autonomic diabetic neuropathy * 3. Ischemic cardiomyopathy, improved. MUGA scan showed ejection fraction of 40-45 %. * 4. INTOLERANCE TO MARY INHIBITOR DUE TO CHRONIC ORTHOSTATIC HYPOTENSION. * 5. History of hypertension, controlled with component of orthostatic hypotension due to autonomic neuropathy. She takes midodrine. * 6. Shortness of breath with the above factors, seems to be stable with functional class II. * 7. Obesity with no weight changes. * 8. Diabetes mellitus she reports has not been very well-controlled * 9. Intermittent edema * 10. Hyperlipidemia with improvement of her triglyceride * 11. Recent hospitalization for dehydration and rhabdomyolysis according to her * RECOMMENDATIONS: * 1. Advised the patient to try to increase her midodrine to 5 mg 3 times daily * 2. I suggested to her to remain on the same medication, * 3. Patient was consulted on losing weight, exercise and dietary modification and was encouraged to use her stationary bike. * 4. We'll see her back and 6 month in follow-up or earlier if the need arise * 5. Continue to encourage her to optimize her diabetic control * 6. Continue to encourage the patient to maintain high fluid intake, wear compression stocking and use Midrin as needed * 7. Try to retrieve her recent hospitalization record * 8. We will do a CPK and BMP -[facility] 250 DO Work Phone: History of Present illness Narrative* Patient is here for follow-up continue management for coronary artery disease previous bypass surgery, mild ischemic cardiomyopathy, shortness of breath and recurrent episode of orthostatic hypotension attributed to autonomic dysfunction. Since last time I saw her she denies change in cardiac status or symptoms. She described intermittent episodes of brief chest pain. She has nitroglycerin on couple of occasion. She denies any intervening symptoms except for recurrent UTI * ASSESSMENT: * 1. Coronary artery disease with with bypass surgery back in 2017. She described symptoms of shortness of breath. Few episodes of chest pain. Last stress test in 2019 was negative * 2. Chronic orthostatic hypotension due to autonomic diabetic neuropathy improved with increasing midodrine recently * 3. Ischemic cardiomyopathy, improved. MUGA scan showed ejection fraction of 40-45 %. * 4. INTOLERANCE TO MARY INHIBITOR DUE TO CHRONIC ORTHOSTATIC HYPOTENSION. * 5. History of hypertension, controlled with component of orthostatic hypotension due to autonomic neuropathy. She takes midodrine. * 6. Shortness of breath with the above factors, seems to be stable with functional class II. * 7. Obesity with no weight changes. * 8. Diabetes mellitus she reports has not been very well-controlled * 9. Intermittent edema * 10. Hyperlipidemia with improvement of her triglyceride * RECOMMENDATIONS: * 1. Advised the patient to try to continue same treatment * 2. We discussed repeat ischemic evaluation however considering her symptoms had been relatively stable she elected to remain on current therapy unchanged. She will notify me change in cardiac status or symptoms * 3. Patient was consulted on losing weight, exercise and dietary modification and was encouraged to use her stationary bike. * 4. We'll see her back and 6 month in follow-up or earlier if the need arise * 5. Continue to encourage her to optimize her diabetic control * 6. Continue to encourage the patient to maintain high fluid intake, wear compression stocking and use Midrin as needed * 7. I reviewed with her her recent lab work [facility] 250 DO Work Phone: Hospital course Narrative No data available for this section [facility] Hospital Discharge instructions No data available for this section [facility] data available [facility] this section [facility] Reason for referral (narrative)* Consultation (Routine) - Authorized Specialty Diagnoses / Procedures Referred By Nupur t Referred To Contact Cardiology Diagnoses CAD, multiple vessel Essential hypertension, benign Ischemic cardiomyopathy Procedures Follow Up In Cardiology Az Hayes MD [address] [facility] [address], [address] [address] Az Hayes MD [address] [facility] [address] [place] [address] Referral ID Status Reason Start Date Expiration Date V isits Requested Visits Authorized [id number] Authorized 10/07/2023 10/06/2024 1 1 [facility] Work Phone: Summary Purpose Family History Unknown Family Member Name Dates Details Family history of angina pec toris: Father(V17.49, Z82.49) Status:Active Family history of dementia: Mother, Sister(V17.2, Z81.8) Status:Active Family history of aortic trace nosis: Sister(V17.49, Z82.49) Status:Active Unknown Family Member Name Dates Details Family history of angina pec toris: Father(V17.49, Z82.49) Status:Active Family history of dementia: Mother, Sister(V17.2, Z81.8) Status:Active Family history of aortic trace nosis: Sister(V17.49, Z82.49) Status:Active Unknown Family Member Name Dates Details Family history of angina pec toris: Father(V17.49, Z82.49) Status:Active Family history of dementia: Mother, Sister(V17.2, Z81.8) Status:Active Family history of aortic trace nosis: Sister(V17.49, Z82.49) Status:Active Family history of cerebrovas cular accident (CVA): Sister(V17.1, Z82.3) Status:Active Unknown Family Member Name Dates Details Family history of angina pec toris: Father(V17.49, Z82.49) Status:Active Family history of dementia: Mother, Sister(V17.2, Z81.8) Status:Active Family history of aortic trace nosis: Sister(V17.49, Z82.49) Status:Active Family history of cerebrovas cular accident (CVA): Sister(V17.1, Z82.3) Status:Active Unknown Family Member Name Dates Details Family history of angina pec toris: Father(V17.49, Z82.49) Status:Active Family history of dementia: Mother, Sister(V17.2, Z81.8) Status:Active Family history of aortic trace nosis: Sister(V17.49, Z82.49) Status:Active Family history of cerebrovas cular accident (CVA): Sister(V17.1, Z82.3) Status:Active Unknown Family Member Name Dates Details Family history of aortic trace nosis: Sister(V17.49, Z82.49) Status:Active Family history of dementia: Mother, Sister(V17.2, Z81.8) Status:Active Family history of angina pec toris: Father(V17.49, Z82.49) Status:Active Family history of cerebrovas cular accident (CVA): Sister(V17.1, Z82.3) Status:Active Unknown Family Member Name Dates Details Family history of angina pec toris: Father(V17.49, Z82.49) Status:Active Family history of dementia: Mother, Sister(V17.2, Z81.8) Status:Active Family history of aortic trace nosis: Sister(V17.49, Z82.49) Status:Active Family history of cerebrovas cular accident (CVA): Sister(V17.1, Z82.3) Status:Active Unknown Family Member Name Dates Details Family history of angina pec toris: Father(V17.49, Z82.49) Status:Active Family history of dementia: Mother, Sister(V17.2, Z81.8) Status:Active Family history of aortic trace nosis: Sister(V17.49, Z82.49) Status:Active Family history of cerebrovas cular accident (CVA): Sister(V17.1, Z82.3) Status:Active Advance Directives Advance Directive Response Recorded Date/ Time Advance Directives No February 27 3:44pm Advance Directive Response Recorded Date/ Time Advance Directives No February 27 2:44pm Chief Complaint ELIZABETH MANRIQUE is being seen for a 6 month follow-up of.ELIZABETH MANRIQUE is being seen for a 6 month follow-up of.ELIZABETH MANRIQUE is being seen for a 6 month follow-up of.ELIZABETH MANRIQUE is being seen for a 6 month follow-up of. Chief Complaint and Reason for Visit Chief Complaint type 2 dm w/ other c irculatory complications Chronic Kidney Disease Stage III asthma Chief Complaint type 2 dm w/ other c irculatory complications N18.30 I12.98 E11.22 E53.8 Chief Complaint type 2 dm w/ other c irculatory complications N18.30 I12.98 E11.22 E53.8 I95.89;R80.9;N39.0;N18.30;E11.22 Chief Complaint type 2 dm w/ other c irculatory complications N18.30 I12.98 E11.22 E53.8 I95.89;R80.9;N39.0;N18.30;E11.22 r42 r93.89 Chief Complaint type 2 dm w/ other c irculatory complications N18.30 I12.98 E11.22 E53.8 I95.89;R80.9;N39.0;N18.30;E11.22 r42 r93.89 Screening Additional Source Comments INFORMATION SOURCE (unrecogn ized section and content) DATE CREATED AUTHOR 04/30/2018 [facility] DATE CREATED AUTHOR AUTHOR'S ORGANIZ ATION 11/22/2019 [facility] DATE CREATED AUTHOR AUTHOR'S ORGANIZ ATION 08/18/2020 [facility] DATE CREATED AUTHOR AUTHOR'S ORGANIZ ATION 12/14/2021 [facility] DATE CREATED AUTHOR AUTHOR'S ORGANIZ ATION 09/25/2022 [facility] DATE CREATED AUTHOR AUTHOR'S ORGANIZ ATION 09/25/2022 [employer] DATE CREATED AUTHOR AUTHOR'S ORGANIZ ATION 02/05/2023 [facility] DATE CREATED AUTHOR AUTHOR'S ORGANIZ ATION 03/08/2023 [facility] DATE CREATED AUTHOR AUTHOR'S ORGANIZ ATION 09/15/2023 [facility] DATE CREATED AUTHOR AUTHOR'S ORGANIZ ATION 10/09/2023 [facility] DATE CREATED AUTHOR AUTHOR'S ORGANIZ ATION 11/14/2023 [facility] REASON FOR VISIT (unrecogniz ed section and content) DS CGM pending Reason Comments Follow-up 7 month Care Teams (unrecognized sec tion and content) Team Status: Active Member Role Status Dates Kathrine Rumschlag , DO Primary Care Provider Active Team Status: Active Member Role Status Dates NON STAFF Primary Care Provider Active Pastor Rehman APRN HOSPITAL UNIT CLERK-C Active Aniyah Flores PA-C Active Dereck Diaz , KWESI Attending Provider Active Team Status: Inactive Member Role Status Dates Kathrine Rumschlag , DO Primary Care Provider Active Zoila Jiménez NP-C Attending Provider Active Zaina Leigh MD Other Provider Active Team Status: Inactive Member Role Status Dates Kathrine Rumschlag , DO Primary Care Provider Active Zaina Leigh MD Attending Provider Active Az Hayes MD Other Provider Active Team Status: Inactive Member Role Status Dates Kathrine Rumschlag , DO Primary Care Provider Active Josefa Cox , DO Attending Provider Active Team Status: Inactive Member Role Status Dates Kathrine Rumschlag , DO Primary Care Provider Active Zaina Leigh MD Attending Provider Active Team Status: Inactive Member Role Status Dates Kathrine Rumschlag , DO Primary Care Provider Active Nena Wick , Attending Provider Active Zaina Leigh MD Referring Provider Active Oleomargarine Maker Relationship Specialty Start Date End Date Rowdyrashida, Kathrine Dorantes, [facility] [place] [address] PCP - General 08/16/20 Team Status: Inactive Member Role Status Dates Kathrine Rumschlag , DO Primary Care Provider, Attending Provider Active Goals (unrecognized section and content) Goals may be documented in a n alternate section FOR RECORDS PERTAINING TO PATIENTS WHO ARE OR HAVE BEEN ENROLLED IN A CHEMICAL DEPENDENCY/SUBSTANCEABUSE PROGRAM, SOME INFORMATION MAY BE OMITTED. This clinical summary was aggregated from multiple sources. Caution should be exercised in using it in the provision of clinical care. This summary normalizes information from multiple sources, and as a consequence, information in this document may materially change the coding, format and clinical context of patient data. In addition, data may be omitted in some cases. CLINICAL DECISIONS SHOULD BE BASED ON THE PRIMARY CLINICAL RECORDS. [facility]. provides no warranty or guarantee of the accuracy or completeness of information in this document.
[2023-12-11 07:45] VITALS: BP 153/79; PULSE 77; RESP 16; TEMP 35.5; O2SAT 97; BMI 30.9
[2023-12-11 07:45] LABS: Glucometer 178 mg/dL (74-106)
[2023-12-11] MEDS: LACTATED RINGER'S SOLUTION 1,000 ML 50 ML IV (07:57)
--- NOTE | 2023-12-11 08:08 | P.GSPRC_ITS ---
Date of procedure: 12/11/23 Indications for Procedure: screening for cancer Pre-op diagnosis: screening for cancer Post-op diagnosis: other (colon polyp splenic flexure less than 1 cm; single diverticulum sigmoid colon) Procedure: colonoscopy hot snare splenic flexure polyp Findings: polyp splenic flexure Anesthesia: MAC Surgeon: Kirt Rizzo Procedure Summary: PROCEDURE: The patient was taken to the Endoscopy Suite, placed in the left lateral recumbent position, given IV sedation as above. A rectal digital exam was performed. The sphincter tone was found to be normal. No rectal masses were appreciated. The Olympus video colonoscope was advanced under direct visualization to the rectum, sigmoid colon, descending colon, transverse colon and ascending colon to the ileocecal valve. The underside of the valve was seen. appendiceal lumen was visualized. The scope was slowly withdrawn with air being desufflated as it was withdrawn. patient had a small sessile polyp about 6-7 millimeters in size which was hot snared and retrieved and hemostasis maintained. This was in the splenic flexure. There was a single diverticulum noted in the sigmoid colon. scope was retroflexed on itself and was normal.The patient tolerated the procedure well and went to the Recovery Area in satisf actory condition. I recommend the patient surveillance colonoscopy in five years pending pathology. Also recommend patient consume a high-fiber diet on a regular basis. Estimated blood loss (mL): 0 Complications: No Condition: stable Disposition: PACU
[2023-12-11 08:51] VITALS: BP 152/82; PULSE 70; RESP 14; TEMP 36.3; O2SAT 99
[2023-12-11 09:06] VITALS: BP 174/96; PULSE 70; RESP 16; O2SAT 98
[2023-12-11 09:19] VITALS: BP 168/84; PULSE 70; RESP 17; O2SAT 96
== END 2023-12-11 09:21 | disposition home or self-care (01) ==
PROVIDERS: Family Provider Family Medicine; PCP Family Medicine; Visit Provider Surgery
PROC: (CPT 45385; principal; 2023-12-11 08:10)
DX: Z12.11 Encounter for screening for malignant neoplasm of colon (principal); D12.3 Benign neoplasm of transverse colon; K57.30 Diverticulosis of large intestine without perforation or abscess without bleeding; Z79.02 Long term (current) use of antithrombotics/antiplatelets; F41.9 Anxiety disorder, unspecified; F32.A Depression, unspecified; N18.9 Chronic kidney disease, unspecified; J44.9 Chronic obstructive pulmonary disease, unspecified; E11.22 Type 2 diabetes mellitus with diabetic chronic kidney disease; E78.00 Pure hypercholesterolemia, unspecified; Z95.1 Presence of aortocoronary bypass graft; M79.7 Fibromyalgia; Z99.3 Dependence on wheelchair; I42.9 Cardiomyopathy, unspecified; I25.10 Atherosclerotic heart disease of native coronary artery without angina pectoris; I12.9 Hypertensive chronic kidney disease with stage 1 through stage 4 chronic kidney disease, or unspecified chronic kidney disease; Z90.710 Acquired absence of both cervix and uterus; Z79.82 Long term (current) use of aspirin; Z79.4 Long term (current) use of insulin
CPT/HCPCS: 45385; 36415; 82948; 88305; J2250; J2704

== ENCOUNTER 2025-03-05 11:05 | Outpatient (OUT) | payer MEDICARE, SELFPAY ==
[2025-03-05 12:40] LABS: Chol HDL Ratio 5.1; Cholesterol 175 mg/dL (<=200); HDL Cholesterol 34 mg/dL (40-60); Triglycerides 621 mg/dL (<=150); VLDL CHOLESTEROL 124.2 mg/dL
[2025-03-05 12:52] LABS: LDL Cholesterol Direct 59 mg/dL
== END 2025-03-05 11:06 | disposition home or self-care (01) ==
LOC: LAB 11:10
PROVIDERS: Family Provider Family Medicine; Visit Provider Internal Medicine Cardiovascular Disease
DX: E78.2 Mixed hyperlipidemia (principal); I25.10 Atherosclerotic heart disease of native coronary artery without angina pectoris
CPT/HCPCS: 36415; 80061; 83721

== ENCOUNTER 2025-03-05 11:18 | Outpatient (OUT) | payer MEDICARE, SELFPAY ==
[2025-03-05 12:12] LABS: Hemoglobin 13.4 g/dL (12.0-16.0); Mean Corpuscular HGB Conc 31.2 g/dL (29.9-35.2); Mean Corpuscular Hemoglobin 29.7 pg (26.7-34.0); Mean Corpuscular Volume 95.3 fL (81.0-99.0); Mean Platelet Volume 10.4 fL (9.5-13.5); Platelet Count 255 10^3/uL (150-450); Red Blood Count 4.51 10^6/uL (4.20-5.40); Red Cell Distribution Width 13.3 % (11.0-15.0); White Blood Count 14.5 10^3/uL (4.0-11.0)
[2025-03-05 12:21] LABS: Creatinine Urine Random 69.61 mg/dL (20.00-300.00); Protein Creatinine Ratio Urine 0.93; Total Protein Urine Random 64.7 mg/dL (<=11.9)
[2025-03-05 12:27] LABS: Albumin Level 3.4 g/dL (3.4-5.0); Anion Gap 21.4; BUN Creatinine Ratio 21.6; Calcium 9.4 mg/dL (8.5-10.1); Carbon Dioxide 21.9 mmol/L (21.0-32.0); Chloride 102 mmol/L (98-107); Estimated GFR (African America 46 (>=60 mL/min/1.73m^2); Estimated GFR (Non-African Ame 38 (>=60 mL/min/1.73m^2); Glucose 247 mg/dL (74-106); Phosphorus 4.8 mg/dL (2.6-4.7); Potassium 4.3 mmol/L (3.5-5.1); Sodium 141 mmol/L (136-145)
[2025-03-05 12:49] LABS: Bilirubin Urine NEGATIVE (NEGATIVE); Blood Urine LARGE (NEGATIVE); Clarity Urine CLOUDY (CLEAR); Color Urine LT. YELLOW (YELLOW); Glucose Urine UA >=1000 mg/dL (NEGATIVE); Ketones Urine NEGATIVE (NEGATIVE); Leukocyte Esterase Urine SMALL (NEGATIVE); Nitrite Urine NEGATIVE (NEGATIVE); Protein Urine 30 mg/dL (NEG/TRACE); Urobilinogen Urine 0.2 EU/dL (0.2-1.0)
[2025-03-05 14:39] LABS: WBC Urine 75-100 #/HPF (NONE SEEN)
[2025-03-05 14:40] LABS: Bacteria Urine LARGE #/HPF (NONE SEEN); Squamous Epithelial Cell Urine FEW #/LPF (NONE/RARE)
[2025-03-05 14:41] LABS: Cast Seen? NONE SEEN #/LPF (NONE SEEN); Crystals Seen? None Seen #/HPF (None Seen); Mucus Urine NONE SEEN (NONE SEEN)
[2025-03-07 10:08] LABS: PTH, Intact 38 pg/mL (15-65)
== END 2025-03-05 11:19 | disposition home or self-care (01) ==
LOC: LAB 11:20
PROVIDERS: Family Provider Family Medicine; Visit Provider Internal Medicine
DX: I12.9 Hypertensive chronic kidney disease with stage 1 through stage 4 chronic kidney disease, or unspecified chronic kidney disease (principal); N18.30 Chronic kidney disease, stage 3 unspecified; E55.9 Vitamin D deficiency, unspecified; E11.22 Type 2 diabetes mellitus with diabetic chronic kidney disease; I25.10 Atherosclerotic heart disease of native coronary artery without angina pectoris; E78.2 Mixed hyperlipidemia
CPT/HCPCS: 36415; 80061; 80069; 81001; 82306; 82570; 83721; 83735; 83970; 84156; 84550; 85027